=== PATIENT | male | born 1955 | race Caucasian/White ===

== ENCOUNTER → 2017-09-03 13:32 | Outpatient (CLI) | payer BC, SELFPAY ==
[2017-09-03 14:07] LABS: Basophils % 0.6 % (0.1-2.0); Eosinophils # 0.3 K/mm3 (0.0-0.4); Eosinophils % 4.5 % (0.1-12.0); Hematocrit 46.9 % (42.0-52.0); Hemoglobin 15.5 g/dL (14.1-18.0); Lymphocytes # 1.4 K/mm3 (0.7-4.5); Lymphocytes % 20.8 K/mm3 (10-50); Mean Corpuscular HGB Conc 33.1 g/dL (31.8-35.4); Mean Corpuscular Hemoglobin 29.3 pg (27.0-31.2); Mean Corpuscular Volume 88.4 fl (80-94); Mean Platelet Volume 9.1 fl (7.4-10.4); Monocytes # 0.4 K/mm3 (0.1-1.0); Monocytes % 5.2 % (1.7-9.3); Neutrophils # 4.7 K/mm3 (1.8-7.8); Neutrophils % 68.8 % (37.0-80.0); Platelet Count 177 K/mm3 (142-424); Red Cell Distribution Width 13.2 % (11.5-17.5); White Blood Count 6.8 K/mm3 (4.8-10.8)
[2017-09-03 14:56] LABS: Anion Gap 15.2 mEq/L (5-15); Blood Urea Nitrogen 14 mg/dL (7-18); Carbon Dioxide 26 mmol/L (21.0-32.0); Chloride 104 mmol/L (98-107); Creatinine,Serum 0.74 mg/dL (0.70-1.30); Estimated Glomerular Filt Rate 108 ml/min (>60); GFR (African American) 131 ML/MIN (>60); Glucose 94 mg/dL (74-106); Potassium 4.2 mmoL/L (3.5-5.1); Sodium 141 mmol/L (136-145)
== END ==
PROVIDERS: Visit Provider Otolaryngology
DX: Z01.818 Encounter for other preprocedural examination (principal); D18.01 Hemangioma of skin and subcutaneous tissue
CPT/HCPCS: 36415; 80048; 85025; 93005

== ENCOUNTER → 2017-12-14 09:45 | Outpatient (POV) | payer BC, SELFPAY | PROVIDERS: PCP Family Medicine; Visit Provider Internal Medicine | DX: Z00.00 Encounter for general adult medical examination without abnormal findings (principal) ==

== ENCOUNTER 2017-12-21 12:03 | Inpatient (IN) ==
[2017-12-21 12:35] LABS: Basophils % 0.4 % (0.1-2.0); Eosinophils # 0.7 K/mm3 (0.0-0.4); Eosinophils % 6.7 % (0.1-12.0); Hematocrit 46.7 % (42.0-52.0); Hemoglobin 15.5 g/dL (14.1-18.0); Lymphocytes # 1.5 K/mm3 (0.7-4.5); Lymphocytes % 15.6 K/mm3 (10-50); Mean Corpuscular HGB Conc 33.3 g/dL (31.8-35.4); Mean Corpuscular Hemoglobin 28.7 pg (27.0-31.2); Mean Corpuscular Volume 86.4 fl (80-94); Mean Platelet Volume 8.5 fl (7.4-10.4); Monocytes # 0.5 K/mm3 (0.1-1.0); Monocytes % 5.1 % (1.7-9.3); Neutrophils % 72.2 % (37.0-80.0); Platelet Count 181 K/mm3 (142-424); Red Blood Count 5.41 M/mm3 (4.60-6.20); Red Cell Distribution Width 13.6 % (11.5-17.5); White Blood Count 9.7 K/mm3 (4.8-10.8)
[2017-12-21 12:35] LABS: Bilirubin,Urine Negative (Negative); Color,Urine YELLOW (Yellow); Glucose,Urine (UA) Negative (Negative); Ketones,Urine Negative (Negative); Leukocyte Esterase,Urine Negative (Negative); Microscopic, Urine URINE MICROSCOPIC (MICROSCOPIC); Protein,Urine 2+ (Negative); Specific Gravity, Urine >= 1.030 (1.005-1.030)
--- NOTE | 2017-12-21 12:48 | Emergency Department Note ---
ED Disposition Clinical Impression: Small bowel obstruction, partial Disposition: Still a Patient Condition on Discharge: Fair Referrals: Messi Soto MD [Primary Care Provider] - - Critical Care Critical Care Time: No Attestation: On 12/21/17, the high probability of a clinically significant, sudden or life threatening deterioration of the following system(s) required my full and direct attention, intervention and personal management. The time I documented below is in addition to time spent performing reported procedures but includes the following listed in this critical care notation. Medical Decision Making - Enrique Inquiry Pt receiving controlled substance: Yes Enrique was queried for this patient: Yes Reference #:: [id number] Risks and benefits of using a controlled substance: were not discussed with pt by me Comment: 0 rxs. Vital Signs: 12/21/17 12:08 12/21/17 12:40 Temperature 98.7 F Temperature Source Oral Pulse Rate [Right Brachial] 71 78 Respiratory Rate 24 20 Blood Pressure [Right Arm] 138/89 146/89 Blood Pressure Mean [Right Arm] 105 108 Blood Pressure Source [Right Arm] Automatic Cuff Automatic Cuff Blood Pressure Position [Right Arm] Sitting Sitting 02 Sat by Pulse Oximetry 94 L 98 Oxygen Delivery Method Room Air Room Air - Lab Data Lab Results 12/21/17 12:20: WBC 9.7, RBC 5.41, Hgb 15.5, Hct 46.7, MCV 86.4, MCH 28.7, MCHC 33.3, RDW 13.6, Plt Count 181, MPV 8.5, Neut % (Auto) 72.2, Lymph % (Auto) 15.6 , [place] % (Auto) 5.1, Eos % (Auto) 6.7, Baso % (Auto) 0.4, Neut # (Auto) 7.0, Lymph # (Auto) 1.5, [place] # (Auto) 0.5, Eos # (Auto) 0.7 H, Baso # (Auto) 0.0 12/21/17 12:20: Sodium 138, Potassium 4.1, Chloride 106, Carbon Dioxide 29, Anion Gap 7.1, BUN 17, Creatinine 0.75, Estimated Creat Clear 161, Estimated GFR 106, Est GFR ( Amer) 129, Glucose 122 H, Calcium 8.8, Total Bilirubin 0.4, AST 17, ALT 28, Alkaline Phosphatase 84, Total Protein 7.3, Albumin 3.6, Globulin 3.7 H, Albumin/Globulin Ratio 1.0 L, Amylase 57, Lipase 113 12/21/17 12:30: Urine Color Yellow, Urine Appearance Clear, Urine pH 6.0, Ur Specific [place] >= 1.030, Urine Protein 2+, Urine Glucose (UA) Negative, Urine Ketones Negative, Urine Blood Trace-i, Urine Nitrate Negative, Urine Bilirubin Negative, Urine Urobilinogen 1.0, Ur Leukocyte Esterase Negative, Urine RBC None , Urine WBC Occasional, Ur Squamous Epith Cells Occasional, Urine Bacteria Trace , Urine Mucus 2+ Result diagrams: 12/21/17 12:20 12/21/17 12:20 Orders (Tests/Meds): ED MEDICATIONS Discontinued Medications Generic Name Dose Route Start Last Admin Trade Name Hector PRN Reason Stop Dose Admin Hydromorphone HCl 1 mg 12/21/17 12:55 12/21/17 13:05 Dilaudid 2mg/Ml Syringe IV 12/21/17 12:56 1 mg ONCE ONE Administration Ondansetron HCl 4 mg 12/21/17 12:55 12/21/17 13:05 Zofran 4mg/2ml Vial IV 12/21/17 12:56 4 mg ONCE ONE Administration Sodium Chloride 1,000 ml 12/21/17 12:55 12/21/17 13:05 Sod Chlor 0.9% 1000ml Bag IV 12/21/17 12:56 1,000 ml BOLUS ONE Administration - CT Data CT Scan: Abdomen, Pelvis Time Received: 14:[address] Reviewed: Yes: I have viewed the radiologist's interpretation Findings Narrative: The small bowel is distended. There is a prominent small bowel loop in the midabdomen measuring 7.5 cm in transverse dimension. There is a suture line at this region. No previous surgical history given. Air-fluid levels present in this distended bowel loop and in other bowel loops as well. The terminal ileum is nondistended. Mid ileal loops are dilated as well as jejunum and proximal ileum. Obstruction could be at the dilated small bowel segment at the region of the anastomosis. This is difficult to evaluate without IV and oral contrast. No free air. There is eventration of the lower abdominal wall. No acute bony anomalies. IMPRESSION: 1. The findings are consistent with partial small bowel obstruction at the proximal to mid ileal region. A dilated small bowel loop is present at an area of anastomosis in the midabdomen and could be the site of the obstruction. Follow-up with IV and adequate oral contrast may confirm. 2. Colonic diverticulosis. 3. Multiple hepatic cysts Dictated By: Bhanu Peguero MD Signed By: <Electronically signed by Bhanu Peguero MD in [place]> 12/21/17 1422 - Physician Consults Physician Consulted: Mario Time: 14:38 Reason -: Surgical Eval/Care Comment/Response: Requests admission to the patient's primary care physician, Dr. Soto, and he will consult. He will see the patient this afternoon. Additional Consult: Brittany Time: 14:41 Reason -: Admission Comment/Response: Agrees to admit the patient to the hospital. We discussed the patient's clinical information, including history, exam, laboratory and radiology results and ED course. Per hospital procedure, I will write temporary bridge inpatient orders on the patient. Specific orders requested by the admitting physician: Per surgery General Adult HPI - General Chief complaint: Abdominal Pain Stated complaint: abdominal pain Time Seen by Provider: 12/21/17 12:45 Mode of Arrival: Family Vehicle Limitations: No Limitations Description of Symptoms (Recalled from ER Triage Doc. by RN): C/O LOWER ABDOMINBAL PAIN SINCE THIS AM. STATES HE HAS HISTORY OF RUPTURED ABDOMINAL HERNIA AND THE PAIN FEELS THE SAME. NO RADIATION OF PAIN TO GENITALS.ALSO DX WITH SHINGLES ON BACK LAST WEEK - History of Present Illness HPI narrative: Complains of periumbilical abdominal pain that started about 3 AM. Waxes and wanes, but does not go away. Nausea, but no vomiting. Small bowel movement at about 11 AM. No diarrhea. No fever. The pain feels similar to prior problems with umbilical hernia. He had an incarcerated strangulated hernia in 2010 requiring a small bowel resection. He had hernia repair in 2012 or 2013 with mesh. - Related Data Home Medications Medication Instructions Recorded Confirmed aspirin 81 mg tablet,delayed 81 mg PO DAILY 08/13/17 12/21/17 release celecoxib 200 mg capsule 200 mg PO DAILY 90 Days #90 08/13/17 12/21/17 esomeprazole magnesium 40 mg 40 mg PO DAILY 90 Days #90 08/13/17 12/21/17 capsule,delayed release lisinopril 10 10 mg PO DAILY 90 Days #08/13/17 12/21/17 mg-hydrochlorothiazide 12.5 mg tablet ranitidine 300 mg tablet 300 mg PO DAILY 90 Days #90 08/13/17 12/21/17 Montelukast Sodium [Montelukast 10 mg PO HS 09/15/17 12/21/17 10mg Tab] Potassium 99 mg PO DAILY 09/15/17 12/21/17 Albuterol Sulfate [Proventil-HFA 2 inh PO QID PRN 12/21/17 12/21/17 90mcg/puff Inh] Azelastine/Fluticasone [Dymista 23 gm NS DAILY 12/21/17 12/21/17 Nasal [place]] Gluc/Fernie-MSM#1/C/Marc/Stanley/Bor 2 each PO DAILY 12/21/17 12/21/17 [Osteo Bi-Flex Caplet] Loratadine [Allerclear] 10 mg PO DAILY 12/21/17 12/21/17 Multivit-Min/FA/Lycopen/Lutein 1 each PO DAILY 12/21/17 12/21/17 [Centrum Silver Tablet] [place]-3 Fatty Acids [Fish Oil] 300 mg PO DAILY 12/21/17 12/21/17 Allergies Allergy/AdvReac Type Severity Reaction Status Date / Time No Known Allergies Allergy Verified 10/01/17 08:55 [facility] History I have reviewed the patient's past medical history: Yes Medical History: Reports:: Asthma, Gastroesophageal Reflux Disease(GERD), Hypertension Denies:: Cancer, Diabetes Mellitus Type 1, Diabetes Mellitus Type 2, Internal Pacemaker, MRSA, Seizures Other Medical History: Denies: Blood Transfusion Reaction Comment: right bbb Laterality Cases: Bilateral: Tonsillectomy, Other Other Surgeries: Yes: Cardiac Catheterization, Colonoscopy, Hernia Repair. No: Pacemaker Amputation: No - Social History Smoking Status: Never smoker Alcohol Intake: current Alcohol Intake Frequency:: a few times a week Substance Use Type: denies use Occupational Status: employed Housing: house Household Members: family - Psychiatric History Expresses thoughts of harming self/others: None Suicide Plan Description: No Plan Family Hx:: Hypertension ROS Obtained: Yes All systems reviewed & no additional complaints - Constitutional Constitutional: Denies fever(s) - Cardiovascular Cardiovascular: Denies chest pain - Respiratory Respiratory: No dyspnea - Gastrointestinal Gastrointestingal: Reports: abdominal pain, nausea. Denies: diarrhea, vomiting - Genitourinary Male Genitourinary: Denies difficulty urinating Physical Exam - General General appearance: alert Comment: Appears to be in moderate pain - Head Head exam: atraumatic, normocephalic, normal inspection - Eye Eye exam: Present: normal appearance, PERRL, EOMI - ENT ENT exam: Present: mucous membranes moist - Neck Neck exam: Present: normal inspection, full ROM, trachea midline. Absent: meningismus, lymphadenopathy - Chest Chest inspection: Present: normal inspection, symmetric chest wall rise. Absent : tenderness - Respiratory Respiratory exam: Present: normal lung sounds bilaterally. Absent: respiratory distress - Cardiovascular Cardiovascular exam: Present: regular rate, normal rhythm. Absent: JVD - Abdominal Exam Abdominal exam: Present: soft, tenderness (Periumbilical, no definite hernia or mass palpated), normal bowel sounds. Absent: distention, guarding - Extremities Exam Extremities exam: Present: normal inspection, full ROM, normal capillary refill. Absent: calf tenderness - Back Exam Comment: Grouping of small scabs left sacroiliac area. - Neurological Exam Neurological exam: Present: alert, oriented X3 - Psychiatric Psychiatric exam: Present: normal affect, normal mood - Skin Skin exam: Present: warm, dry, intact, normal color
[2017-12-21 12:49] LABS: Albumin Level 3.6 gm/dL (3.4-5.0); Anion Gap 7.1 mEq/L (5-15); Bilirubin,Total 0.4 mg/dL (0.2-1.0); Calcium 8.8 mg/dL (8.5-10.1); Globulin 3.7 gm/dl (1.3-3.2); Potassium 4.1 mmoL/L (3.5-5.1); Total Protein,Serum 7.3 gm/dL (6.4-8.2)
[2017-12-21 13:06] LABS: Bacteria,Urine Trace /lpf; Mucus,Urine 2+ /lpf; Squamous Epithelial Cell,Urine Occasional #/hpf (0-5); WBC,Urine Occasional #/hpf (0-3)
[2017-12-21 13:40] LABS: Appearance,Urine CLEAR (Clear); Blood, Urine TRACE-I (Negative)
--- NOTE | 2017-12-21 15:36 | Pharmacy Consult Notes ---
[facility] VTE Monitoring - Patient Demographics Admission date: 12/21/17 Report Date: 12/21/17 Time: 15:36 Allergies/Adverse Reactions: Patient Allergies No Known Allergies Allergy (Verified 10/01/17 08:55) Height: 1.83 m Weight: 108.862 kg Patient Problems: Current Active Problems Small bowel obstruction, partial (Acute) - VTE Risk Labs: VTE Related Lab Results Hgb 15.5 g/dL (14.1-18.0) 12/21/17 12:20 Hct 46.7 % (42.0-52.0) 12/21/17 12:20 Plt Count 181 K/mm3 (142-424) 12/21/17 12:20 BUN 17 mg/dL (7-18) 12/21/17 12:20 Creatinine 0.75 mg/dL (0.70-1.30) 12/21/17 12:20 Estimated Creat Clear 161 mL/min (0-300) 12/21/17 12:20 - Prophylaxis VTE Prophylaxis Ordered?: Yes Types of VTE Prophylaxis: TEDS Knee High Location of Applied Device: Bilateral Lower Extremeties - VTE Diagnosis Confirmed Treatment or plan recommended: Continue Current Treatment
--- NOTE | 2017-12-21 16:20 | History & Physical Report ---
*Admission Date: 12/21/17 *Chief complaint: Abdominal pain *History of present illness: 62 year old male with a history of an incarcerated umbilical hernia with small bowel obstruction in 2010, s/p emergent repair by Dr. Martin, presented to [facility] ER today complaining of middle lower abdominal pain. Patient reported the pain came on suddenly around 3 AM and was associated with nausea and some vomiting. He also noted a smaller volume bowel movement than normal. He had a CT scan in the ER which showed a partial SBO. Dr. Martin was contacted and requested admission for further observation and management. Patient states he has more pain and nausea since arriving at his room and Phenergan has been added to his treatment. Dr. Martin and I saw patient together. [facility] History Medical History: Reports:: Asthma, Gastroesophageal Reflux Disease(GERD), Hypertension Denies:: Cancer, Diabetes Mellitus Type 1, Diabetes Mellitus Type 2, Internal Pacemaker, MRSA, Seizures Other Medical History: Denies: Blood Transfusion Reaction Laterality Cases: Bilateral: Tonsillectomy, Other (Umbilical hernia w/ SBO repeair in 2010) Other Surgeries: Yes: Cardiac Catheterization, Colonoscopy, Hernia Repair. No: Pacemaker Amputation: No - *Social History Smoking Status: Never smoker Alcohol Intake: current Alcohol Intake Frequency:: a few times a week Substance Use Type: denies use Occupational Status: employed Housing: house Household Members: family - Psychiatric History Expresses thoughts of harming self/others: None Suicide Plan Description: No Plan *Family Hx:: Hypertension Review of Systems - Constitutional Denies fatigue - Eyes Denies blurry vision - ENT Denies bleeding gums - *Cardiovascular Denies chest pain - *Respiratory Denies cough - *Genitourinary Denies difficulty urinating - *Musculoskeletal Denies joint pain - Integumentary/Breasts Denies rash - *Neurologic Denies dizziness - Hematologic/Lymphatic Denies easy bleeding Meds Home Medications Medication Instructions Recorded Confirmed Type aspirin 81 mg tablet,delayed 81 mg PO DAILY 08/13/17 12/21/17 History release celecoxib 200 mg capsule 200 mg PO DAILY 90 Days #08/13/17 12/21/17 History esomeprazole magnesium 40 mg 40 mg PO DAILY 90 Days #90 08/13/17 12/21/17 History capsule,delayed release lisinopril 10 10 mg PO DAILY 90 Days #08/13/17 12/21/17 History mg-hydrochlorothiazide 12.5 mg tablet ranitidine 300 mg tablet 300 mg PO DAILY 90 Days #90 08/13/17 12/21/17 History Montelukast Sodium [Montelukast 10 mg PO HS 09/15/17 12/21/17 History 10mg Tab] Potassium 99 mg PO DAILY 09/15/17 12/21/17 History Albuterol Sulfate [Proventil-HFA 2 inh PO QID PRN 12/21/17 12/21/17 History 90mcg/puff Inh] Azelastine/Fluticasone [Dymista 23 gm NS DAILY 12/21/17 12/21/17 History Nasal [place]] Gluc/[place]ernie-MSM#1/C/Marc/Stanley/Bor 2 each PO DAILY 12/21/17 12/21/17 History [Osteo Bi-Flex Caplet] Loratadine [Allerclear] 10 mg PO DAILY 12/21/17 12/21/17 History Multivit-Min/FA/Lycopen/Lutein 1 each PO DAILY 12/21/17 12/21/17 History [Centrum Silver Tablet] [place]-3 Fatty Acids [Fish Oil] 300 mg PO DAILY 12/21/17 12/21/17 History Allergies Allergy/AdvReac Type Severity Reaction Status Date / Time No Known Allergies Allergy Verified 10/01/17 08:55 Exam Vital signs and Labs for Last 24 Hours: Temp Pulse Resp BP Pulse Ox 98.7 F 66 16 135/78 94 L 12/21/17 15:24 12/21/17 15:24 12/21/17 15:24 12/21/17 15:24 12/21/17 15:15 Laboratory Results - last 24 hr 12/21/17 12:20: WBC 9.7, RBC 5.41, Hgb 15.5, Hct 46.7, MCV 86.4, MCH 28.7, MCHC 33.3, RDW 13.6, Plt Count 181, MPV 8.5, Neut % (Auto) 72.2, Lymph % (Auto) 15.6 , [place] % (Auto) 5.1, Eos % (Auto) 6.7, Baso % (Auto) 0.4, Neut # (Auto) 7.0, Lymph # (Auto) 1.5, [place] # (Auto) 0.5, Eos # (Auto) 0.7 H, Baso # (Auto) 0.0 12/21/17 12:20: Sodium 138, Potassium 4.1, Chloride 106, Carbon Dioxide 29, Anion Gap 7.1, BUN 17, Creatinine 0.75, Estimated Creat Clear 161, Estimated GFR 106, Est GFR ( Amer) 129, Glucose 122 H, Calcium 8.8, Total Bilirubin 0.4, AST 17, ALT 28, Alkaline Phosphatase 84, Total Protein 7.3, Albumin 3.6, Globulin 3.7 H, Albumin/Globulin Ratio 1.0 L, Amylase 57, Lipase 113 12/21/17 12:30: Urine Color Yellow, Urine Appearance Clear, Urine pH 6.0, Ur Specific [place] >= 1.030, Urine Protein 2+, Urine Glucose (UA) Negative, Urine Ketones Negative, Urine Blood Trace-i, Urine Nitrate Negative, Urine Bilirubin Negative, Urine Urobilinogen 1.0, Ur Leukocyte Esterase Negative, Urine RBC None , Urine WBC Occasional, Ur Squamous Epith Cells Occasional, Urine Bacteria Trace , Urine Mucus 2+ I & O for Last 24 hours: Intake & Output 12/19/17 12/20/17 12/21/17 12/22/17 11:59 11:59 11:59 11:59 Weight 240 lb - Constitutional mild distress - *Routine HEENT Exam ENT: Present: mucous membranes moist - *Routine Respiratory Exam Present: CTA bilaterally - *Routine Cardiovascular Exam Present: RRR - *Routine Abdominal Exam Present: tenderness (periumbilical), distended - *Routine Extremities Exam Absent: cyanosis, clubbing, edema - *Routine Skin Exam Present: warm H&P: Result - Labs Labs: Short CBC 12/21/17 Range/Units 12:20 WBC 9.7 (4.8-10.8) K/mm3 Hgb 15.5 (14.1-18.0) g/dL Hct 46.7 (42.0-52.0) % Plt Count 181 (142-424) K/mm3 BMP 12/21/17 12:20 Sodium 138 Potassium 4.1 Chloride 106 Carbon Dioxide 29 BUN 17 Creatinine 0.75 Glucose 122 H Calcium 8.8 Liver Function 12/21/17 Range/Units 12:20 Total Bilirubin 0.4 (0.2-1.0) mg/dL AST 17 (15-37) U/L ALT 28 (12-78) U/L Alkaline Phosphatase 84 (46-116) U/L Albumin 3.6 (3.4-5.0) gm/dL Urine 12/21/17 Range/Units 12:30 Urine Color Yellow (Yellow) Urine Appearance Clear (Clear) Urine pH 6.0 (5.0-8.5) Ur Specific [place] >= 1.030 (1.005-1.030) Urine Protein 2+ (Negative) Urine Glucose (UA) Negative (Negative) Assessment and Plan (1) Small bowel obstruction, partial Current visit: Yes Status: Acute Category: Medical Code(s): K56.600 - Partial intestinal obstruction, unspecified as to cause (2) Abdominal pain Current visit: Yes Status: Acute Category: Medical Code(s): R10.9 - Unspecified abdominal pain (3) HTN (hypertension) Current visit: Yes Status: Acute Category: Medical Code(s): I10 - Essential (primary) hypertension (4) GERD (gastroesophageal reflux disease) Current visit: Yes Status: Acute Category: Medical Code(s): K21.9 - Gastro -esophageal reflux disease without esophagitis (5) History of umbilical hernia Current visit: Yes Status: Acute Category: Medical Code(s): Z87.19 - Personal history of other diseases of the digestive system (6) Hx of umbilical hernia repair Current visit: Yes Status: Acute Category: Surgical Code(s): Z98.890 - Other specified postprocedural states; Z87.19 - Personal history of other diseases of the digestive system - Assessment and plan all Dx Assessment and Plan for all problems:: NG tube has been placed and patient feels some better. Plan to continue current treatment.
--- NOTE | 2017-12-21 16:58 | Consult Report ---
*Admission Date: 12/21/17 *Chief complaint: Abdominal pain and nausea *History of present illness: Patient is a 62-year-old white male. In 2010 he had developed acute small bowel obstruction secondary to strangulated umbilical hernia. He was taken emergently to the operating room at which time he underwent small segmental resection of small bowel due to strangulation with [id number] anastomosis. He did ultimately develop a recurrent hernia and underwent laparoscopic ventral hernia repair in 2013 with placement of Bard ventralex mesh measuring 15 x 21 cm. he states that approximately 3 or 4 AM this morning he had developed mid abdominal pain. This persisted and progressed. He had a normal bowel movement yesterday and has been moving his bowels normally. He had a small with a normal bowel movement earlier today. He states that this morning he had drank some hot chocolate and eaten some cashews but his symptoms of pain persisted and progressed. He developed nausea and presented to the emergency department this afternoon. He underwent noncontrast CT scan which revealed findings of dilated small bowel consistent with possible partial obstruction but no clear transition point was noted. He was admitted for inpatient management and surgical consultation. Review of Systems - Constitutional Reports anorexia, Reports excessive sweating, Denies fever(s) - Eyes Denies change in vision - ENT Denies abnormal hearing - *Cardiovascular Denies chest pain - *Respiratory Reports cough, Denies shortness of breath - *Gastrointestinal Reports abdominal pain, Reports bloating, Reports change in bowel habits, Reports vomiting - *Genitourinary Denies difficulty urinating - *Neurologic Denies dizziness [facility] History Medical History: Reports:: Asthma, Gastroesophageal Reflux Disease(GERD), Hypertension Denies:: Cancer, Diabetes Mellitus Type 1, Diabetes Mellitus Type 2, Internal Pacemaker, MRSA, Seizures Other Medical History: Denies: Blood Transfusion Reaction Laterality Cases: Bilateral: Tonsillectomy, Other (Umbilical hernia w/ SBO repeair in 2010) Other Surgeries: Yes: Cardiac Catheterization, Colonoscopy, Hernia Repair. No: Pacemaker Amputation: No - *Social History Educational Level: Completed High School Smoking Status: Never smoker Alcohol Intake: current Alcohol Intake Frequency:: a few times a week Substance Use Type: denies use Occupational Status: employed Housing: house Household Members: family - Psychiatric History Expresses thoughts of harming self/others: None Suicide Plan Description: No Plan *Family Hx:: Hypertension Meds Home Medications Medication Instructions Recorded Confirmed Type aspirin 81 mg tablet,delayed 81 mg PO DAILY 08/13/17 12/21/17 History release celecoxib 200 mg capsule 200 mg PO DAILY 90 Days #90 08/13/17 12/21/17 History esomeprazole magnesium 40 mg 40 mg PO DAILY 90 Days #90 08/13/17 12/21/17 History capsule,delayed release lisinopril 10 10 mg PO DAILY 90 Days #90 08/13/17 12/21/17 History mg-hydrochlorothiazide 12.5 mg tablet ranitidine 300 mg tablet 300 mg PO DAILY 90 Days #90 08/13/17 12/21/17 History Montelukast Sodium [Montelukast 10 mg PO HS 09/15/17 12/21/17 History 10mg Tab] Potassium 99 mg PO DAILY 09/15/17 12/21/17 History Albuterol Sulfate [Proventil-HFA 2 inh PO QID PRN 12/21/17 12/21/17 History 90mcg/puff Inh] Azelastine/Fluticasone [Dymista 23 gm NS DAILY 12/21/17 12/21/17 History Nasal [place]] Gluc/Fernie-MSM#1/C/Marc/Stanley/Bor 2 each PO DAILY 12/21/17 12/21/17 History [Osteo Bi-Flex Caplet] Loratadine [Allerclear] 10 mg PO DAILY 12/21/17 12/21/17 History Multivit-Min/FA/Lycopen/Lutein 1 each PO DAILY 12/21/17 12/21/17 History [Centrum Silver Tablet] [place]-3 Fatty Acids [Fish Oil] 300 mg PO DAILY 12/21/17 12/21/17 History Allergies Allergy/AdvReac Type Severity Reaction Status Date / Time No Known Allergies Allergy Verified 10/01/17 08:55 Exam Vital signs and Labs for Last 24 Hours: Temp Pulse Resp BP Pulse Ox 98.7 F 66 16 135/78 94 L 12/21/17 15:24 12/21/17 15:24 12/21/17 15:24 12/21/17 15:24 12/21/17 15:15 Laboratory Results - last 24 hr 12/21/17 12:20: WBC 9.7, RBC 5.41, Hgb 15.5, Hct 46.7, MCV 86.4, MCH 28.7, MCHC 33.3, RDW 13.6, Plt Count 181, MPV 8.5, Neut % (Auto) 72.2, Lymph % (Auto) 15.6 , [place] % (Auto) 5.1, Eos % (Auto) 6.7, Baso % (Auto) 0.4, Neut # (Auto) 7.0, Lymph # (Auto) 1.5, [place] # (Auto) 0.5, Eos # (Auto) 0.7 H, Baso # (Auto) 0.0 12/21/17 12:20: Sodium 138, Potassium 4.1, Chloride 106, Carbon Dioxide 29, Anion Gap 7.1, BUN 17, Creatinine 0.75, Estimated Creat Clear 161, Estimated GFR 106, Est GFR ( Amer) 129, Glucose 122 H, Calcium 8.8, Total Bilirubin 0.4, AST 17, ALT 28, Alkaline Phosphatase 84, Total Protein 7.3, Albumin 3.6, Globulin 3.7 H, Albumin/Globulin Ratio 1.0 L, Amylase 57, Lipase 113 12/21/17 12:30: Urine Color Yellow, Urine Appearance Clear, Urine pH 6.0, Ur Specific [place] >= 1.030, Urine Protein 2+, Urine Glucose (UA) Negative, Urine Ketones Negative, Urine Blood Trace-i, Urine Nitrate Negative, Urine Bilirubin Negative, Urine Urobilinogen 1.0, Ur Leukocyte Esterase Negative, Urine RBC None , Urine WBC Occasional, Ur Squamous Epith Cells Occasional, Urine Bacteria Trace , Urine Mucus 2+ I & O for Last 24 hours: Intake & Output 12/19/17 12/20/17 12/21/17 12/22/17 11:59 11:59 11:59 11:59 Weight 240 lb - Constitutional mild distress Comments: Patient is uncomfortable secondary to the pain and nausea. - *Routine HEENT Exam Head: Present: normocephalic - *Routine Respiratory Exam Present: CTA bilaterally - *Routine Cardiovascular Exam Present: RRR - *Routine Abdominal Exam Present: tenderness, distended. Absent: rebound, guarding Comments: Abdomen is somewhat distended. He has some mild diffuse tenderness without guarding or rebound. He has hypoactive bowel sounds. Results - Labs 12/21/17 12:20 12/21/17 12:20 Laboratory Results - last 24 hr 12/21/17 12:20: WBC 9.7, RBC 5.41, Hgb 15.5, Hct 46.7, MCV 86.4, MCH 28.7, MCHC 33.3, RDW 13.6, Plt Count 181, MPV 8.5, Neut % (Auto) 72.2, Lymph % (Auto) 15.6 , [place] % (Auto) 5.1, Eos % (Auto) 6.7, Baso % (Auto) 0.4, Neut # (Auto) 7.0, Lymph # (Auto) 1.5, [place] # (Auto) 0.5, Eos # (Auto) 0.7 H, Baso # (Auto) 0.0 12/21/17 12:20: Sodium 138, Potassium 4.1, Chloride 106, Carbon Dioxide 29, Anion Gap 7.1, BUN 17, Creatinine 0.75, Estimated Creat Clear 161, Estimated GFR 106, Est GFR ( Amer) 129, Glucose 122 H, Calcium 8.8, Total Bilirubin 0.4, AST 17, ALT 28, Alkaline Phosphatase 84, Total Protein 7.3, Albumin 3.6, Globulin 3.7 H, Albumin/Globulin Ratio 1.0 L, Amylase 57, Lipase 113 12/21/17 12:30: Urine Color Yellow, Urine Appearance Clear, Urine pH 6.0, Ur Specific [place] >= 1.030, Urine Protein 2+, Urine Glucose (UA) Negative, Urine Ketones Negative, Urine Blood Trace-i, Urine Nitrate Negative, Urine Bilirubin Negative, Urine Urobilinogen 1.0, Ur Leukocyte Esterase Negative, Urine RBC None , Urine WBC Occasional, Ur Squamous Epith Cells Occasional, Urine Bacteria Trace , Urine Mucus 2+ Assessment and Plan (1) Small bowel obstruction, partial Current visit: Yes Status: Acute Category: Medical Code(s): K56.600 - Partial intestinal obstruction, unspecified as to cause (2) Abdominal pain Current visit: Yes Status: Acute Category: Medical Code(s): R10.9 - Unspecified abdominal pain (3) HTN (hypertension) Current visit: Yes Status: Acute Category: Medical Code(s): I10 - Essential (primary) hypertension (4) GERD (gastroesophageal reflux disease) Current visit: Yes Status: Acute Category: Medical Code(s): K21.9 - Gastro -esophageal reflux disease without esophagitis (5) History of umbilical hernia Current visit: Yes Status: Acute Category: Medical Code(s): Z87.19 - Personal history of other diseases of the digestive system (6) Hx of umbilical hernia repair Current visit: Yes Status: Acute Category: Surgical Code(s): Z98.890 - Other specified postprocedural states; Z87.19 - Personal history of other diseases of the digestive system - Assessment and plan all Dx Assessment and Plan for all problems:: Plan for nasogastric tube placement. Attempt nonoperative management. Administer antiemetics and limited pain control. Possibility does exist for need for operative intervention.
--- NOTE | 2017-12-22 07:04 | Progress Note ---
Subjective Patient reports: feels better Exam Vital signs and Labs for Last 24 Hours: Temp Pulse Resp BP Pulse Ox 98.7 F 91 H 16 122/73 94 L 12/21/17 20:00 12/21/17 20:00 12/21/17 20:00 12/21/17 20:00 12/21/17 20:00 Laboratory Results - last 24 hr 12/21/17 12:20: WBC 9.7, RBC 5.41, Hgb 15.5, Hct 46.7, MCV 86.4, MCH 28.7, MCHC 33.3, RDW 13.6, Plt Count 181, MPV 8.5, Neut % (Auto) 72.2, Lymph % (Auto) 15.6 , [place] % (Auto) 5.1, Eos % (Auto) 6.7, Baso % (Auto) 0.4, Neut # (Auto) 7.0, Lymph # (Auto) 1.5, [place] # (Auto) 0.5, Eos # (Auto) 0.7 H, Baso # (Auto) 0.0 12/21/17 12:20: Sodium 138, Potassium 4.1, Chloride 106, Carbon Dioxide 29, Anion Gap 7.1, BUN 17, Creatinine 0.75, Estimated Creat Clear 161, Estimated GFR 106, Est GFR ( Amer) 129, Glucose 122 H, Calcium 8.8, Total Bilirubin 0.4, AST 17, ALT 28, Alkaline Phosphatase 84, Total Protein 7.3, Albumin 3.6, Globulin 3.7 H, Albumin/Globulin Ratio 1.0 L, Amylase 57, Lipase 113 12/21/17 12:30: Urine Color Yellow, Urine Appearance Clear, Urine pH 6.0, Ur Specific [place] >= 1.030, Urine Protein 2+, Urine Glucose (UA) Negative, Urine Ketones Negative, Urine Blood Trace-i, Urine Nitrate Negative, Urine Bilirubin Negative, Urine Urobilinogen 1.0, Ur Leukocyte Esterase Negative, Urine RBC None , Urine WBC Occasional, Ur Squamous Epith Cells Occasional, Urine Bacteria Trace , Urine Mucus 2+ 12/21/17 20:48: Stl Aeromonas (PCR) Not detected, Stl C. cayetanensis PCR Not detected, Stool Rotavirus (PCR) Not detected, Stl Adenov F 40/41 PCR Not detected, Stool Astrovirus (PCR) Not detected, Stool Campylobacter PCR Not detected, Stl C.difficile Tox PCR Not detected, Stool Cryptosporidium PCR Not detected, Stl E.coli Shiga Tox PCR Not detected, Stool E coli O157 PCR Not detected, Stl Enterotoxigenic E PCR Not detected, Stool EPEC (PCR) Not detected , Stool EAEC (PCR) Not detected, Stl E. histolytica PCR Not detected, Stool Giardia Lamblia PCR Not detected, Stool Salmonella PCR Not detected, Stool Sapovirus (PCR) Not detected, Stl P. shigelloides PCR Not detected, Stl Shigella /EIEC PCR Not detected, St Y.enterocolitica PCR Not detected, Stool Vibrio (PCR ) Not detected, Stl Vibrio cholerae PCR Not detected, Stl Norovirus GI/GII PCR Not detected I & O for Last 24 hours: Intake & Output 12/19/17 12/20/17 12/21/17 12/22/17 11:59 11:59 11:59 11:59 Intake Total 2390 / 2390 Output Total 852 / 852 Balance 1538 / 1538 Weight 240 lb - *Routine Abdominal Exam Present: distended Progress Note: A&P (1) Small bowel obstruction, partial Status: Acute Current Visit: Yes (2) Abdominal pain Status: Acute Current Visit: Yes (3) HTN (hypertension) Status: Acute Current Visit: Yes (4) GERD (gastroesophageal reflux disease) Status: Acute Current Visit: Yes (5) History of umbilical hernia Status: Acute Current Visit: Yes (6) Hx of umbilical hernia repair Status: Acute Current Visit: Yes Assessment and Plan for All Diagnoses:: Abdominal x-ray shows improvement in bowel gas pattern. However, NG tube is coiled in the mid esophagus. Will have nursing repositioned NG tube. May need new NG tube placed. Continue attempt at nonoperative management at this time.
--- NOTE | 2017-12-22 08:13 | Progress Note ---
Internal Medicine - PN: Subj *Date: 12/22/17 *Time: 08:10 Interval history: Patient feels some better this morning. He had a bowel movement overnight, NG tube was just replaced. Exam Vital signs and Labs for Last 24 Hours: Temp Pulse Resp BP Pulse Ox 98.3 F 83 20 133/84 94 L 12/22/17 07:56 12/22/17 07:56 12/22/17 07:56 12/22/17 07:56 12/22/17 07:56 Laboratory Results - last 24 hr 12/21/17 12:20: WBC 9.7, RBC 5.41, Hgb 15.5, Hct 46.7, MCV 86.4, MCH 28.7, MCHC 33.3, RDW 13.6, Plt Count 181, MPV 8.5, Neut % (Auto) 72.2, Lymph % (Auto) 15.6 , [place] % (Auto) 5.1, Eos % (Auto) 6.7, Baso % (Auto) 0.4, Neut # (Auto) 7.0, Lymph # (Auto) 1.5, [place] # (Auto) 0.5, Eos # (Auto) 0.7 H, Baso # (Auto) 0.0 12/21/17 12:20: Sodium 138, Potassium 4.1, Chloride 106, Carbon Dioxide 29, Anion Gap 7.1, BUN 17, Creatinine 0.75, Estimated Creat Clear 161, Estimated GFR 106, Est GFR ( Amer) 129, Glucose 122 H, Calcium 8.8, Total Bilirubin 0.4, AST 17, ALT 28, Alkaline Phosphatase 84, Total Protein 7.3, Albumin 3.6, Globulin 3.7 H, Albumin/Globulin Ratio 1.0 L, Amylase 57, Lipase 113 12/21/17 12:30: Urine Color Yellow, Urine Appearance Clear, Urine pH 6.0, Ur Specific [place] >= 1.030, Urine Protein 2+, Urine Glucose (UA) Negative, Urine Ketones Negative, Urine Blood Trace-i, Urine Nitrate Negative, Urine Bilirubin Negative, Urine Urobilinogen 1.0, Ur Leukocyte Esterase Negative, Urine RBC None , Urine WBC Occasional, Ur Squamous Epith Cells Occasional, Urine Bacteria Trace , Urine Mucus 2+ 12/21/17 20:48: Stl Aeromonas (PCR) Not detected, Stl C. cayetanensis PCR Not detected, Stool Rotavirus (PCR) Not detected, Stl Adenov F 40/41 PCR Not detected, Stool Astrovirus (PCR) Not detected, Stool Campylobacter PCR Not detected, Stl C.difficile Tox PCR Not detected, Stool Cryptosporidium PCR Not detected, Stl E.coli Shiga Tox PCR Not detected, Stool E coli O157 PCR Not detected, Stl Enterotoxigenic E PCR Not detected, Stool EPEC (PCR) Not detected , Stool EAEC (PCR) Not detected, Stl E. histolytica PCR Not detected, Stool Giardia Lamblia PCR Not detected, Stool Salmonella PCR Not detected, Stool Sapovirus (PCR) Not detected, Stl P. shigelloides PCR Not detected, Stl Shigella /EIEC PCR Not detected, St Y.enterocolitica PCR Not detected, Stool Vibrio (PCR ) Not detected, Stl Vibrio cholerae PCR Not detected, Stl Norovirus GI/GII PCR Not detected I & O for Last 24 hours: Intake & Output 12/19/17 12/20/17 12/21/17 12/22/17 11:59 11:59 11:59 11:59 Intake Total 2390 / 2390 Output Total 852 / 852 Balance 1538 / 1538 Weight 240 lb - Constitutional no acute distress - *Routine HEENT Exam ENT: Present: mucous membranes moist - *Routine Respiratory Exam Present: CTA bilaterally - *Routine Cardiovascular Exam Present: RRR - *Routine Abdominal Exam Present: soft, normoactive bowel sounds, tenderness (but much less today) Assessment and Plan (1) Small bowel obstruction, partial Current visit: Yes Status: Acute Category: Medical Code(s): K56.600 - Partial intestinal obstruction, unspecified as to cause (2) Abdominal pain Current visit: Yes Status: Acute Category: Medical Code(s): R10.9 - Unspecified abdominal pain (3) HTN (hypertension) Current visit: Yes Status: Acute Category: Medical Code(s): I10 - Essential (primary) hypertension (4) GERD (gastroesophageal reflux disease) Current visit: Yes Status: Acute Category: Medical Code(s): K21.9 - Gastro -esophageal reflux disease without esophagitis (5) History of umbilical hernia Current visit: Yes Status: Acute Category: Medical Code(s): Z87.19 - Personal history of other diseases of the digestive system (6) Hx of umbilical hernia repair Current visit: Yes Status: Acute Category: Surgical Code(s): Z98.890 - Other specified postprocedural states; Z87.19 - Personal history of other diseases of the digestive system - Assessment and plan all Dx Assessment and Plan for all problems:: Plan to continue current treatment as patient has improved.
[2017-12-23 06:42] LABS: Basophils % 0.3 % (0.1-2.0); Eosinophils # 0.2 K/mm3 (0.0-0.4); Eosinophils % 3.3 % (0.1-12.0); Hematocrit 39.9 % (42.0-52.0); Hemoglobin 13.3 g/dL (14.1-18.0); Lymphocytes # 1.6 K/mm3 (0.7-4.5); Lymphocytes % 24.3 K/mm3 (10-50); Mean Corpuscular HGB Conc 33.4 g/dL (31.8-35.4); Mean Corpuscular Hemoglobin 29.1 pg (27.0-31.2); Mean Corpuscular Volume 87.1 fl (80-94); Mean Platelet Volume 8.5 fl (7.4-10.4); Monocytes # 0.5 K/mm3 (0.1-1.0); Monocytes % 7.4 % (1.7-9.3); Neutrophils # 4.2 K/mm3 (1.8-7.8); Neutrophils % 64.7 % (37.0-80.0); Platelet Count 161 K/mm3 (142-424); Red Blood Count 4.58 M/mm3 (4.60-6.20); Red Cell Distribution Width 13.8 % (11.5-17.5); White Blood Count 6.4 K/mm3 (4.8-10.8)
[2017-12-23 06:49] LABS: Anion Gap 6.7 mEq/L (5-15); Potassium 3.7 mmoL/L (3.5-5.1)
[2017-12-23 07:04] LABS: Calcium 7.8 mg/dL (8.5-10.1)
--- NOTE | 2017-12-23 08:08 | Progress Note ---
<Adelaide Figueroa - Last Filed: 12/23/17 08:06> Internal Medicine - PN: Subj *Date: 12/23/17 *Time: 08:06 Interval history: Patient states he is feeling well this morning. He has not had a bowel movement , but his stomach has been growling. He is hungry and wants to try some clear liquids today. He did sleep well last night Exam Vital signs and Labs for Last 24 Hours: Temp Pulse Resp BP Pulse Ox 98.7 F 71 20 138/75 94 L 12/23/17 07:49 12/23/17 07:49 12/23/17 07:49 12/23/17 07:49 12/23/17 07:49 Laboratory Results - last 24 hr 12/23/17 06:15: WBC 6.4 D, RBC 4.58 L, Hgb 13.3 L, Hct 39.9 L, MCV 87.1, MCH 29.1, MCHC 33.4, RDW 13.8, Plt Count 161, MPV 8.5, Neut % (Auto) 64.7, Lymph % ( Auto) 24.3, [place] % (Auto) 7.4, Eos % (Auto) 3.3, Baso % (Auto) 0.3, Neut # (Auto ) 4.2, Lymph # (Auto) 1.6, [place] # (Auto) 0.5, Eos # (Auto) 0.2, Baso # (Auto) 0.0 12/23/17 06:15: Sodium 139, Potassium 3.7, Chloride 106, Carbon Dioxide 30, Anion Gap 6.7, BUN 7 D, Creatinine 0.62 L, Estimated Creat Clear 195, Estimated GFR 132, Est GFR ( Amer) 160 D, Glucose 115 H, Calcium 7.8 L D I & O for Last 24 hours: Intake & Output 12/20/17 12/21/17 12/22/17 12/23/17 11:59 11:59 11:59 11:59 Intake Total 2390 / 2390 3390 / 3390 Output Total 852 / 852 450 / 450 Balance 1538 / 1538 2940 / 2940 Weight 240 lb - Constitutional no acute distress - *Routine Respiratory Exam Present: CTA bilaterally - *Routine Cardiovascular Exam Present: RRR - *Routine Abdominal Exam Present: soft, normoactive bowel sounds. Absent: tenderness - *Routine Extremities Exam Absent: edema Assessment and Plan (1) Small bowel obstruction, partial Current visit: Yes Status: Acute Category: Medical Code(s): K56.600 - Partial intestinal obstruction, unspecified as to cause (2) Abdominal pain Current visit: Yes Status: Acute Category: Medical Code(s): R10.9 - Unspecified abdominal pain (3) HTN (hypertension) Current visit: Yes Status: Acute Category: Medical Code(s): I10 - Essential (primary) hypertension (4) GERD (gastroesophageal reflux disease) Current visit: Yes Status: Acute Category: Medical Code(s): K21.9 - Gastro -esophageal reflux disease without esophagitis (5) History of umbilical hernia Current visit: Yes Status: Acute Category: Medical Code(s): Z87.19 - Personal history of other diseases of the digestive system (6) Hx of umbilical hernia repair Current visit: Yes Status: Acute Category: Surgical Code(s): Z98.890 - Other specified postprocedural states; Z87.19 - Personal history of other diseases of the digestive system - Assessment and plan all Dx Assessment and Plan for all problems:: Surgery to see today. May be able to start a clear liquid diet. <Messi Soto - Last Filed: 12/23/17 08:41> Internal Medicine - PN: Subj *Date: 12/23/17 *Time: 08:41 Exam Vital signs and Labs for Last 24 Hours: Temp Pulse Resp BP Pulse Ox 98.7 F 71 20 138/75 94 L 12/23/17 07:49 12/23/17 07:49 12/23/17 07:49 12/23/17 07:49 12/23/17 07:49 Laboratory Results - last 24 hr 12/23/17 06:15: WBC 6.4 D, RBC 4.58 L, Hgb 13.3 L, Hct 39.9 L, MCV 87.1, MCH 29.1, MCHC 33.4, RDW 13.8, Plt Count 161, MPV 8.5, Neut % (Auto) 64.7, Lymph % ( Auto) 24.3, [place] % (Auto) 7.4, Eos % (Auto) 3.3, Baso % (Auto) 0.3, Neut # (Auto ) 4.2, Lymph # (Auto) 1.6, [place] # (Auto) 0.5, Eos # (Auto) 0.2, Baso # (Auto) 0.0 12/23/17 06:15: Sodium 139, Potassium 3.7, Chloride 106, Carbon Dioxide 30, Anion Gap 6.7, BUN 7 D, Creatinine 0.62 L, Estimated Creat Clear 195, Estimated GFR 132, Est GFR ( Amer) 160 D, Glucose 115 H, Calcium 7.8 L D I & O for Last 24 hours: Intake & Output 12/20/17 12/21/17 12/22/17 12/23/17 11:59 11:59 11:59 11:59 Intake Total 2390 / 2390 3390 / 3390 Output Total 852 / 852 450 / 450 Balance 1538 / 1538 2940 / 2940 Weight 240 lb Assessment and Plan (1) Small bowel obstruction, partial Current visit: Yes Status: Acute Category: Medical Code(s): K56.600 - Partial intestinal obstruction, unspecified as to cause (2) Abdominal pain Current visit: Yes Status: Acute Category: Medical Code(s): R10.9 - Unspecified abdominal pain (3) HTN (hypertension) Current visit: Yes Status: Acute Category: Medical Code(s): I10 - Essential (primary) hypertension (4) GERD (gastroesophageal reflux disease) Current visit: Yes Status: Acute Category: Medical Code(s): K21.9 - Gastro -esophageal reflux disease without esophagitis (5) History of umbilical hernia Current visit: Yes Status: Acute Category: Medical Code(s): Z87.19 - Personal history of other diseases of the digestive system (6) Hx of umbilical hernia repair Current visit: Yes Status: Acute Category: Surgical Code(s): Z98.890 - Other specified postprocedural states; Z87.19 - Personal history of other diseases of the digestive system - Assessment and plan all Dx Assessment and Plan for all problems:: Saw patient, agree with above note.
--- NOTE | 2017-12-23 08:21 | Progress Note ---
Subjective Patient reports: feels better Narrative: Patient states he has passed some gas. No bowel movement. Exam Vital signs and Labs for Last 24 Hours: Temp Pulse Resp BP Pulse Ox 98.7 F 71 20 138/75 94 L 12/23/17 07:49 12/23/17 07:49 12/23/17 07:49 12/23/17 07:49 12/23/17 07:49 Laboratory Results - last 24 hr 12/23/17 06:15: WBC 6.4 D, RBC 4.58 L, Hgb 13.3 L, Hct 39.9 L, MCV 87.1, MCH 29.1, MCHC 33.4, RDW 13.8, Plt Count 161, MPV 8.5, Neut % (Auto) 64.7, Lymph % ( Auto) 24.3, [place] % (Auto) 7.4, Eos % (Auto) 3.3, Baso % (Auto) 0.3, Neut # (Auto ) 4.2, Lymph # (Auto) 1.6, [place] # (Auto) 0.5, Eos # (Auto) 0.2, Baso # (Auto) 0.0 12/23/17 06:15: Sodium 139, Potassium 3.7, Chloride 106, Carbon Dioxide 30, Anion Gap 6.7, BUN 7 D, Creatinine 0.62 L, Estimated Creat Clear 195, Estimated GFR 132, Est GFR ( Amer) 160 D, Glucose 115 H, Calcium 7.8 L D I & O for Last 24 hours: Intake & Output 12/20/17 12/21/17 12/22/17 12/23/17 11:59 11:59 11:59 11:59 Intake Total 2390 / 2390 3390 / 3390 Output Total 852 / 852 450 / 450 Balance 1538 / 1538 2940 / 2940 Weight 240 lb - *Routine Abdominal Exam Present: soft. Absent: tenderness Progress Note: A&P (1) Small bowel obstruction, partial Status: Acute Current Visit: Yes (2) Abdominal pain Status: Acute Current Visit: Yes (3) HTN (hypertension) Status: Acute Current Visit: Yes (4) GERD (gastroesophageal reflux disease) Status: Acute Current Visit: Yes (5) History of umbilical hernia Status: Acute Current Visit: Yes (6) Hx of umbilical hernia repair Status: Acute Current Visit: Yes Assessment and Plan for All Diagnoses:: I am doubtful the NG tube is in an appropriate position. Patient has X-rays ordered for today. If showing improvement will probably discontinue NG and try a few sips of clears.
--- NOTE | 2017-12-24 07:54 | Progress Note ---
Subjective Patient reports: feels better Narrative: No complaints. Tolerated full liquids this morning without nausea or pain. Exam Vital signs and Labs for Last 24 Hours: Temp Pulse Resp BP Pulse Ox 98.5 F 58 L 18 116/65 94 L 12/24/17 04:00 12/24/17 04:00 12/24/17 04:00 12/24/17 04:00 12/24/17 04:00 I & O for Last 24 hours: Intake & Output 12/21/17 12/22/17 12/23/17 12/24/17 11:59 11:59 11:59 11:59 Intake Total 2390 / 2390 3390 / 3390 1560 / 1560 Output Total 852 / 852 450 / 450 900 / 900 Balance 1538 / 1538 2940 / 2940 660 / 660 Weight 240 lb - *Routine Abdominal Exam Present: soft Progress Note: A&P (1) Small bowel obstruction, partial Status: Acute Current Visit: Yes (2) Abdominal pain Status: Acute Current Visit: Yes (3) HTN (hypertension) Status: Acute Current Visit: Yes (4) GERD (gastroesophageal reflux disease) Status: Acute Current Visit: Yes (5) History of umbilical hernia Status: Acute Current Visit: Yes (6) Hx of umbilical hernia repair Status: Acute Current Visit: Yes Assessment and Plan for All Diagnoses:: Doing well with clinical resolution of SBO. Possible discharge home later today.
--- NOTE | 2017-12-24 08:14 | Progress Note ---
<Adelaide Figueroa - Last Filed: 12/24/17 08:12> Internal Medicine - PN: Subj *Date: 12/24/17 *Time: 08:12 Interval history: Patient is feeling much better today. He has been up walking around the hallway. He did have a bowel movement last night and ate all of his breakfast this morning. He is anxious to go home. Exam Vital signs and Labs for Last 24 Hours: Temp Pulse Resp BP Pulse Ox 98.5 F 58 L 18 116/65 94 L 12/24/17 04:00 12/24/17 04:00 12/24/17 04:00 12/24/17 04:00 12/24/17 04:00 I & O for Last 24 hours: Intake & Output 12/21/17 12/22/17 12/23/17 12/24/17 11:59 11:59 11:59 11:59 Intake Total 2390 / 2390 3390 / 3390 1560 / 1560 Output Total 852 / 852 450 / 450 900 / 900 Balance 1538 / 1538 2940 / 2940 660 / 660 Weight 240 lb - Constitutional no acute distress - *Routine Respiratory Exam Present: CTA bilaterally - *Routine Cardiovascular Exam Present: RRR - *Routine Abdominal Exam Present: soft, normoactive bowel sounds. Absent: tenderness - *Routine Extremities Exam Absent: edema Assessment and Plan (1) Small bowel obstruction, partial Current visit: Yes Status: Acute Category: Medical Code(s): K56.600 - Partial intestinal obstruction, unspecified as to cause (2) Abdominal pain Current visit: Yes Status: Acute Category: Medical Code(s): R10.9 - Unspecified abdominal pain (3) HTN (hypertension) Current visit: Yes Status: Acute Category: Medical Code(s): I10 - Essential (primary) hypertension (4) GERD (gastroesophageal reflux disease) Current visit: Yes Status: Acute Category: Medical Code(s): K21.9 - Gastro -esophageal reflux disease without esophagitis (5) History of umbilical hernia Current visit: Yes Status: Acute Category: Medical Code(s): Z87.19 - Personal history of other diseases of the digestive system (6) Hx of umbilical hernia repair Current visit: Yes Status: Acute Category: Surgical Code(s): Z98.890 - Other specified postprocedural states; Z87.19 - Personal history of other diseases of the digestive system - Assessment and plan all Dx Assessment and Plan for all problems:: NG tube has been removed and patient is doing much better. He is tolerating food. He may be able to be discharged home later on today. <Messi Soto - Last Filed: 12/24/17 08:49> Internal Medicine - PN: Subj *Date: 12/24/17 *Time: 08:48 Exam Vital signs and Labs for Last 24 Hours: Temp Pulse Resp BP Pulse Ox 98.3 F 76 18 140/90 96 12/24/17 08:00 12/24/17 08:00 12/24/17 08:00 12/24/17 08:00 12/24/17 08:00 I & O for Last 24 hours: Intake & Output 12/21/17 12/22/17 12/23/17 12/24/17 11:59 11:59 11:59 11:59 Intake Total 2390 / 2390 3390 / 3390 2280 / 2280 Output Total 852 / 852 450 / 450 900 / 900 Balance 1538 / 1538 2940 / 2940 1380 / 1380 Weight 240 lb Assessment and Plan (1) Small bowel obstruction, partial Current visit: Yes Status: Acute Category: Medical Code(s): K56.600 - Partial intestinal obstruction, unspecified as to cause (2) Abdominal pain Current visit: Yes Status: Acute Category: Medical Code(s): R10.9 - Unspecified abdominal pain (3) HTN (hypertension) Current visit: Yes Status: Acute Category: Medical Code(s): I10 - Essential (primary) hypertension (4) GERD (gastroesophageal reflux disease) Current visit: Yes Status: Acute Category: Medical Code(s): K21.9 - Gastro -esophageal reflux disease without esophagitis (5) History of umbilical hernia Current visit: Yes Status: Acute Category: Medical Code(s): Z87.19 - Personal history of other diseases of the digestive system (6) Hx of umbilical hernia repair Current visit: Yes Status: Acute Category: Surgical Code(s): Z98.890 - Other specified postprocedural states; Z87.19 - Personal history of other diseases of the digestive system - Assessment and plan all Dx Assessment and Plan for all problems:: Saw patient agree with above note.
--- NOTE | 2017-12-24 14:51 | Discharge Summary ---
General - General Admission date:: 12/21/17 Discharge date: 12/24/17 HPI HPI: 62 year old male with a history of an incarcerated umbilical hernia with small bowel obstruction in 2010, s/p emergent repair by Dr. Martin, presented to [facility] ER today complaining of middle lower abdominal pain. Patient reported the pain came on suddenly around 3 AM and was associated with nausea and some vomiting. He also noted a smaller volume bowel movement than normal. He had a CT scan in the ER which showed a partial SBO. Dr. Martin was contacted and requested admission for further observation and management. Patient states he has more pain and nausea since arriving at his room and Phenergan has been added to his treatment. Dr. Martin and I saw patient together. Hospital Course Hospital Course: An NG tube was placed and the patient felt some better. He was seen by Dr. Martin who wanted to attempt nonoperative management. He was given antiemetics and pain control. He had repeat x-rays showing improvement in the bowel gas pattern, however the, NG tube was coiled in the mid esophagus. He had to have the NG tube replaced. His symptoms did improve and he had a BM. He was started on clear liquids and then advanced to full liquids. The NG tube was removed. He was able to get up and walk around the hallway and was stable to be discharged home with a f/u at [facility] and with Dr. Martin. Objective Vital signs: Temp Pulse Resp BP Pulse Ox 98.3 F 76 18 140/90 96 12/24/17 08:00 12/24/17 08:00 12/24/17 08:00 12/24/17 08:00 12/24/17 08:00 Narrative: - Constitutional mild distress - *Routine HEENT Exam ENT: Present: mucous membranes moist - *Routine Respiratory Exam Present: CTA bilaterally - *Routine Cardiovascular Exam Present: RRR - *Routine Abdominal Exam Present: tenderness (periumbilical), distended - *Routine Extremities Exam Absent: cyanosis, clubbing, edema - *Routine Skin Exam Present: warm DS: Diagnosis - Discharge Diagnosis (1) Small bowel obstruction, partial Status: Acute (2) Abdominal pain Status: Acute (3) HTN (hypertension) Status: Acute (4) GERD (gastroesophageal reflux disease) Status: Acute (5) History of umbilical hernia Status: Acute (6) Hx of umbilical hernia repair Status: Acute Discharge Plan - Patient Discharge Instructions ACTIVITY: Continue current activity DIET: continue same diet Additional Instructions: No work until office f/u. Patient Instructions: DI for Small Bowel Obstruction - Follow up Plan Follow up with: Messi Soto MD [Primary Care Provider] - 12/27/17 10:45 am Disposition: Home, Self-Detention Medications: Home Medications Medication Instructions Recorded Confirmed Type aspirin 81 mg tablet,delayed 81 mg PO DAILY 08/13/17 12/21/17 History release celecoxib 200 mg capsule 200 mg PO DAILY 90 Days #90 08/13/17 12/21/17 History esomeprazole magnesium 40 mg 40 mg PO DAILY 90 Days #90 08/13/17 12/21/17 History capsule,delayed release lisinopril 10 10 mg PO DAILY 90 Days #90 08/13/17 12/21/17 History mg-hydrochlorothiazide 12.5 mg tablet ranitidine 300 mg tablet 300 mg PO HS 90 Days #90 08/13/17 12/22/17 History Montelukast Sodium [Montelukast 10 mg PO HS 09/15/17 12/21/17 History 10mg Tab] Potassium 99 mg PO DAILY 09/15/17 12/21/17 History Azelastine/Fluticasone [Dymista 1 spray NS DAILY 12/21/17 12/22/17 History Nasal [place]] Gluc/Fernie-MSM#1/C/Marc/Stanley/Bor 1 each PO BID 12/21/17 12/22/17 History [Osteo Bi-Flex Caplet] Loratadine [Allerclear] 10 mg PO DAILY 12/21/17 12/21/17 History Multivit-Min/FA/Lycopen/Lutein 1 each PO DAILY 12/21/17 12/21/17 History [Centrum Silver Tablet] Acyclovir [Zovirax] 1 applicatio TP 5XDAY 12/22/17 12/22/17 History Albuterol Sulfate [Albuterol HFA 2 puffs IH QIDP PRN 12/22/17 12/22/17 History Inhaler] [place]-3 Fatty Acids/Fish Oil 2 g PO DAILY 12/22/17 12/22/17 History [[place] 3 1,000 mg Softgel] Valacyclovir HCl [Valacyclovir] 1 gram PO TID 12/22/17 12/22/17 History Prescriptions/Medication Reconciliation: Continue esomeprazole magnesium 40 mg capsule,delayed release 40 mg PO DAILY 90 Days # 90 lisinopril 10 mg-hydrochlorothiazide 12.5 mg tablet 10 mg PO DAILY 90 Days # 90 ranitidine 300 mg tablet 300 mg PO HS 90 Days #90 aspirin 81 mg tablet,delayed release 81 mg PO DAILY celecoxib 200 mg capsule 200 mg PO DAILY 90 Days #90 Azelastine/Fluticasone [Dymista Nasal [place]] 1 spray NS DAILY Multivit-Min/FA/Lycopen/Lutein [Centrum Silver Tablet] 1 each PO DAILY Loratadine [Allerclear] 10 mg PO DAILY Gluc/Fernie-MSM#1/C/Marc/Stanley/Bor [Osteo Bi-Flex Caplet] 1 each PO BID Albuterol Sulfate [Albuterol HFA Inhaler] 2 puffs IH QIDP PRN PRN Reason: Shortness Of Breath Or Wheezing [place]-3 Fatty Acids/Fish Oil [[place] 3 1,000 mg Softgel] 2 g PO DAILY Montelukast Sodium [Montelukast 10mg Tab] 10 mg PO HS Potassium 99 mg PO DAILY Valacyclovir HCl [Valacyclovir] 1 gram PO TID Acyclovir [Zovirax] 1 applicatio TP 5XDAY
== END 2017-12-24 15:22 | disposition home or self-care (01) ==
LOC: ER 12:03 → 2ND 15:08
PROVIDERS: ADMIT Family Medicine; ATTEND Family Medicine
CPT/HCPCS: J2405

== ENCOUNTER → 2018-07-07 09:47 | Outpatient (CLI) | payer BC, SELFPAY ==
[2018-07-07 10:59] VITALS: PULSE 73
== END ==
PROVIDERS: PCP Family Medicine; Visit Provider Internal Medicine
DX: J45.909 Unspecified asthma, uncomplicated (principal)
CPT/HCPCS: 94060; 94640; 94726; 94729

== ENCOUNTER → 2018-08-09 14:50 | Outpatient (POV) | payer BC, SELFPAY | PROVIDERS: Visit Provider Internal Medicine | DX: Z00.00 Encounter for general adult medical examination without abnormal findings (principal) ==

== ENCOUNTER → 2018-08-19 11:57 | Outpatient (CLI) | payer BC, SELFPAY ==
--- NOTE | 2018-08-19 | XR_ITS ---
XR chest 2V HISTORY: Persistent cough nonsmoker ORDERING PHYSICIAN: Messi Soto MD PATIENT AGE: 62 years Technique: PA and lateral chest COMPARISON: PA and lateral chest 05/14/2015 FINDINGS: Chest lung dominguez appear stable with nothing definitely acute. Minor chronic changes and slight coarsening central markings but no focal pneumonia or active disease. The heart is normal in size. The adri and mediastinal structures appear stable. 2 PA films are submitted which are helpful as well. Lateral view unremarkable. No pleural effusion or pleural findings. Chest wall unremarkable. Normal pulmonary vascularity IMPRESSION stable chest nothing definitely acute.
== END ==
PROVIDERS: PCP Family Medicine; Visit Provider Family Medicine
DX: R05 Cough (principal)
CPT/HCPCS: 71046; 87070; 87205

== ENCOUNTER → 2018-12-28 11:44 | Outpatient (CLI) | payer BC, SELFPAY ==
--- NOTE | 2018-12-28 11:50 | XR_ITS ---
PROCEDURE: XR LUMBAR SPINE MIN 4V CLINICAL INDICATION: PAIN IN RT AND LT KNEE, ACUTE MIDLINE LOW BACK PAIN COMPARISON: No exams were available for comparison FINDINGS: There is normal alignment. No fracture or dislocation. There is mild degenerate disc disease at L2-L3 L3-L4 and L5-S1. No lytic or blastic change. Mild facet arthritic change L5-S1. IMPRESSION: Degenerative changes, no acute finding Dictated by: Bhanu Peguero MD 12/29/2018 18:10 Signed by: <Electronically signed by Bhanu Peguero MD in [place]> 12/29/2018 18:10
--- NOTE | 2018-12-28 11:50 | XR_ITS ---
PROCEDURE: XR KNEE RT 3V CLINICAL INDICATION: PAIN IN RT AND LT KNEE, ACUTE MIDLINE LOW BACK PAIN COMPARISON: KNEE3R KNEE-3 VIEWS-RT from 04/30/2014 FINDINGS: There are mild osteoarthritic changes involving all 3 compartments slightly greater at the medial compartment and patellofemoral joint. No fracture or dislocation. A calcific density overlies the proximal aspect of the tibia medially and may be due to a loose body within a bursa about the knee. This is somewhat more medial than where 1 would expect a Ely's cyst to reside. This did have a similar appearance on 04/30/2014. IMPRESSION: Mild osteoarthritic change. Possible loose body/synovial osteo chondroma in a bursa about the medial aspect of the knee versus a soft tissue calcification Dictated by: Bhanu Peguero MD 01/02/2019 14:57 Signed by: <Electronically signed by Bhanu Peguero MD in [place]> 01/02/2019 14:57
--- NOTE | 2018-12-28 11:50 | XR_ITS ---
PROCEDURE: XR KNEE LT 3V CLINICAL INDICATION: PAIN IN RT AND LT KNEE, ACUTE MIDLINE LOW BACK PAIN COMPARISON: No exams were available for comparison FINDINGS: There are minimal osteoarthritic changes of the medial compartment and patellofemoral joint. No fracture or dislocation. IMPRESSION: Minimal osteoarthritis Dictated by: Bhanu Peguero MD 01/02/2019 14:53 Signed by: <Electronically signed by Bhanu Peguero MD in [place]> 01/02/2019 14:53
== END ==
PROVIDERS: PCP Family Medicine; Visit Provider Physician Assistant
DX: M54.5 Low back pain (principal); M25.561 Pain in right knee; M25.562 Pain in left knee
CPT/HCPCS: 72110; 73562

== ENCOUNTER → 2019-01-26 09:09 | Outpatient (CLI) | payer BC, SELFPAY ==
--- NOTE | 2019-01-26 09:13 | XR_ITS ---
PROCEDURE: XR KNEE RT 4V CLINICAL INDICATION: Right knee pain COMPARISON: KNEE3R KNEE-3 VIEWS-RT from 04/30/2014 XR KNEE LT 3V from 12/28/2018 XR KNEE RT 3V from 12/28/2018 FINDINGS: No fracture or dislocation. No lytic or blastic change. There is normal mineralization. There are mild tricompartmental osteoarthritic changes greater in the medial compartment. Not significantly changed from 12/28/2018. Around the calcific density is present medial to the proximal tibia unchanged. Other findings:None. IMPRESSION: Osteoarthritic change with possible loose body medially otherwise negative with no change Dictated by: Bhanu Peguero MD 01/27/2019 03:54 Electronically signed by Bhanu Peguero MD in [place] 01/27/2019 03:54
== END ==
PROVIDERS: PCP Family Medicine; Visit Provider Orthopaedic Surgery
DX: M25.561 Pain in right knee (principal)
CPT/HCPCS: 73564

== ENCOUNTER → 2019-08-28 11:25 | Outpatient (CLI) | payer BC, SELFPAY ==
--- NOTE | 2019-08-28 11:32 | XR_ITS ---
PROCEDURE: XR CHEST 2V CLINICAL HISTORY: COUGH COMPARISON: CXR CHEST(2 VIEWS-NOT PORTABLE) from 05/14/2015 CT CHEST WO CONTRAST from 07/13/2016 CXR1VP XR chest portable from 12/22/2017 CXR2V XR chest 2V from 08/19/2018 FINDINGS: The cardiomediastinal silhouette and pulmonary vascularity are within normal limits. The lungs are clear without infiltrates, suspicious nodules, or pleural effusions. No acute bony abnormalities. IMPRESSION: No acute findings. Dictated by: Bhanu Peguero MD 08/28/2019 14:42 Electronically signed by Bhanu Peguero MD in [place] 08/28/2019 14:42
== END ==
PROVIDERS: PCP Family Medicine; Visit Provider Family Medicine
DX: R05 Cough (principal)
CPT/HCPCS: 71046

== ENCOUNTER → 2019-10-30 14:19 | Outpatient (POV) | payer BC, SELFPAY ==
[2019-10-30 14:45] VITALS: BP 155/95; PULSE 70; RESP 18; O2SAT 98; BMI 32.5
--- NOTE | 2019-10-30 15:36 | HMH.PMCON ---
Assessment and Plan (1) Degenerative disc disease Current visit: Yes Status: Chronic Qualifiers: Spinal region: lumbar Qualified Code(s): M51.36 - Other intervertebral disc degeneration, lumbar region Category: Medical (2) Radiculopathy Current visit: Yes Status: Chronic Category: Medical Code(s): M54.10 - Radiculopathy, site unspecified - Assessment and plan all Dx Assessment and Plan for all problems:: We will will schedule patient for an L4-L5 lumbar epidural steroid injection I believe it will be beneficial given the symptomology of the patient. I will follow-up with him afterwards reassess his symptoms at that time he has been instructed to call the office if he has any issues prior to his next appointment. Dr. Sidhu has reviewed this note and agrees with this plan of care. This note was dictated using voice recognition software and may contain errors or omissions HPI - Data of Consult Consult date: 10/30/19 Requesting Physician: Deanna Nelson APRN Primary Care Provider: Messi Soto MD - Consult Narrative Reason for consult: Back pain, leg pain History of present illness: Mr. Fuentes is a 64 year old male who presents today for consultation regards to his back and left leg pain. 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 He rates his pain a 7 out of 10. He is tried to go to chiropractic therapy and has not had any success in relieving this pain. Any increased activity increases pain will rest ice and a TENS unit decreases pain. He does have numbness and pain in his left leg all the way to his ankle. Patient's tried gabapentin with some relief however he is still having quite a bit of difficulty doing his daily activity. Patient is not on any anticoagulation therapy. CC: Deanna Nelson APRN [facility] History I have reviewed the patient's past medical history: Yes Medical History: Reports:: Asthma, Gastroesophageal Reflux Disease(GERD), Hypertension Denies:: Cancer, Diabetes Mellitus Type 1, Diabetes Mellitus Type 2, Internal Pacemaker, MRSA, Seizures *Have you ever received a pneumonia vaccine?: Yes *Have you received a flu vaccine this season?: Yes Other Medical History: Reports: Arthritis. Denies: Blood Transfusion Reaction Laterality Cases: Bilateral: Tonsillectomy, Other Other Surgeries: Yes: Cardiac Catheterization, Colonoscopy, Hernia Repair. No: Pacemaker Amputation: No Fractures: No - *Social History Smoking Status: Never smoker Alcohol Intake: never Alcohol Intake Frequency:: a few times a week Substance Use Type: denies use *Occupational Status:: other Housing: house Household Members: other *Travel in the last 8 weeks: None Family Hx:: Unable to obtain Review of Systems - Review of Systems ROS General: no recent weight change, no fever, no sleep disturbances Respiratory: no cough, no shortness of air, no recurring pulmonary infections Cardiovascular/Peripheral Vascular: No chest pain, No palpitations, no edema, no shortness of breath. Gastrointestinal: no new onset incontinence, normal bowel movements reported Genitourinary: no new onset incontinence Musculoskeletal: Back pain, leg pain Psychiatric: normal mood/ affect Neurological: [denies new onset weakness in extremities], [denies new onset balance issues] Meds Home Medications Medication Instructions Recorded Confirmed Type aspirin 81 mg tablet,delayed 81 mg PO DAILY 08/13/17 01/26/19 History release celecoxib 200 mg capsule 200 mg PO DAILY 90 Days #90 08/13/17 01/26/19 History esomeprazole magnesium 40 mg 40 mg PO DAILY 90 Days #90 08/13/17 01/26/19 History capsule,delayed release ranitidine HCl 300 mg tablet 300 mg PO HS 90 Days #90 08/13/17 01/26/19 History Montelukast Sodium [Montelukast 10 mg PO HS 09/15/17 01/26/19 History 10mg Tab] Potassium 99 mg PO DAILY 09/15/17 01/26/19 History Gisselle
== END ==
PROVIDERS: PCP Family Medicine; Visit Provider Clinical Nurse Specialist Family Health
DX: M51.16 Intervertebral disc disorders with radiculopathy, lumbar region (principal)
CPT/HCPCS: 99202

== ENCOUNTER 2019-11-10 11:22 | Day surgery (SDC) | payer BC, SELFPAY ==
[2019-11-10 12:10] VITALS: BP 115/77; PULSE 77; RESP 18; TEMP 36.7; O2SAT 96; BMI 33.2
[2019-11-10 12:25] VITALS: BP 134/85; PULSE 71; RESP 18; O2SAT 98
[2019-11-10 12:26] VITALS: BP 138/89; PULSE 75; RESP 18; O2SAT 98
[2019-11-10 12:30] VITALS: BP 122/78; PULSE 77; RESP 18; O2SAT 96
--- NOTE | 2019-11-10 12:31 | HMH.PMPROC ---
- Procedure Date: 11/10/19 Time: 12:31 Anesthesiologist:: Jass Sidhu MD Complications:: None Pre-procedure Diagnosis:: Degenerative disc disease of lumbar spine with lumbar radiculopathy symptoms Post-procedure Diagnosis:: Same Indications for Procedure:: This patient is a pleasant 64-year-old white male who we are treating for low back pain with left leg pain. He is having increasing pain at night. Will do lumbar epidural steroid injection today to see if this will help with his pain symptoms. Procedure Details:: Lumbar epidural steroid injection under fluoroscopy Informed consent was obtained and the risk and benefits of the procedure was explained to the patient. The patient was taken to the procedure room. The patient was placed prone on the procedure table. The patient was prepped and draped in sterile fashion. C-arm fluoroscopy was used to view the lumbar spine. Skin and subcutaneous tissues were anesthetized using lidocaine. I placed an 18-gauge epidural needle and advanced into the L4-L5 interspace using fluoroscopic guidance and [id number] to air. After confirmation of needle placement in the epidural space with dye I injected 2 mL of lidocaine 1.5% with Depo-Medrol 80 mg. Patient tolerated the procedure well with no complications. Plan and Disposition:: We will follow-up with him in 2 weeks. Will reevaluate his symptoms at that time.
== END 2019-11-10 12:30 | disposition home or self-care (01) ==
PROVIDERS: PCP Family Medicine; Visit Provider Anesthesiology
DX: M51.16 Intervertebral disc disorders with radiculopathy, lumbar region (principal); I10 Essential (primary) hypertension; Z87.891 Personal history of nicotine dependence; I45.10 Unspecified right bundle-branch block; J45.909 Unspecified asthma, uncomplicated; Z90.49 Acquired absence of other specified parts of digestive tract; Z80.9 Family history of malignant neoplasm, unspecified; Z82.49 Family history of ischemic heart disease and other diseases of the circulatory system; Z82.3 Family history of stroke; Z81.1 Family history of alcohol abuse and dependence; Z98.890 Other specified postprocedural states; Z79.899 Other long term (current) drug therapy
CPT/HCPCS: 62323; J1040; Q9966

== ENCOUNTER → 2019-11-16 11:23 | Outpatient (POV) | payer BC, SELFPAY | PROVIDERS: Visit Provider Audiologist | DX: Z00.00 Encounter for general adult medical examination without abnormal findings (principal) ==

== ENCOUNTER → 2019-11-30 15:06 | Outpatient (POV) | payer BC, SELFPAY ==
[2019-11-30 15:28] VITALS: BP 133/87; PULSE 68; RESP 18; O2SAT 98; BMI 32.5
--- NOTE | 2019-11-30 15:50 | HMH.PAINSOAP ---
[facility] Pain Management SOAP Note Subjective:: Patient is a pleasant 64-year-old white female who presents today for follow-up after lumbar epidural steroid injection at L4-L5. Patient is being treated for low back pain with lumbar radiculopathy symptoms. Patient has pain that is radiating into his left leg that is worsening at nighttime. He says he did get approximately 90% relief following his injection. He is having some pain return at this time. His pain is a 1 out of 10 with sitting. He reports the pain to start in his low back and radiate into his left lateral leg with numbness and tingling. He says he is not having any pain or numbness and tingling into the foot at this time, however. He does say his pain is worse as day progresses into evening and nighttime. Like to proceed with a repeat lumbar epidural steroid injection. He and I did discuss going a series of injections to get further relief. Review of Systems General: No recent weight changes, no fever, no sleep disturbances Respiratory: No cough, no shortness of air, no recurring pulmonary infections Cardiovascular/peripheral vascular: No chest pain, no palpitations, no edema, no shortness of breath Gastrointestinal: No new onset incontinence, normal bowel movements reported Genitourinary: No new onset incontinence Musculoskeletal: Back pain, left leg pain numbness and tingling Psychiatric: Normal mood/affect Neurological: [Denies weakness in extremities], [denies balance issues] Objective:: Physical exam General: Alert and oriented x3, no acute distress, pleasant and cooperative, [on room air] Lungs: Respirations even and unlabored, symmetrical chest expansion Eyes: PERRL Musculoskeletal: Flexion and extension of lumbar spine somewhat guarded secondary to pain, deep tendon reflexes normal, strength in upper and lower extremities [5/5], [abnormal gait noted] Neurological: Speech clear, armature balancer equal, no gross sensory deficit Assessment:: Degenerative disc disease lumbar spine with lumbar radiculopathy symptoms Plan:: We will proceed with a repeat lumbar epidural steroid injection at L4-L5. we will see the patient back in the clinic as injection to reassess his symptoms. He is not on any anticoagulation therapy. He will continue with a home stretching program. He has tried and failed other conservative therapies with physical therapy and anti-inflammatories. He has been instructed to contact clinic if he has any concerns before his next appointment. The patient and I specifically discussed risk factors for COVID19. These risks include, but are not limited to age greater than 60, heart or lung disease, diabetes, immunosuppression, and travel. We also discussed NSAIDs may worsen COVID19 infection or symptoms. Patient should not use NSAIDs to treat COVID19 signs or symptoms. Patient was also informed that any type of corticosteroid of any form (oral or injection) will decrease the patient's immune system response and may increase the likelihood of COVID19 infection [address] symptoms[address] Dr. Sidhu has reviewed this note and agrees with this plan of care. This note was dictated using voice recognition software and make contain errors or omissions. [facility] History I have reviewed the patient's past medical history: Yes Medical History: Reports:: Asthma, Gastroesophageal Reflux Disease(GERD), Hypertension Denies:: Cancer, Diabetes Mellitus Type 1, Diabetes Mellitus Type 2, Internal Pacemaker, MRSA, Seizures *Have you ever received a pneumonia vaccine?: Yes *Have you received a flu vaccine this season?: Yes Other Medical History: Reports: Arthritis, Cataracts. Denies: Blood Transfusion Reaction Laterality Cases: Bilateral: Tonsillectomy, Other Other Surgeries: Yes: Cardiac Catheterization, Colonoscopy, Colon Resection, Hernia Repair. No: Pacemaker Amputation: No Fractures: No - *Social History Smoking Status: Former smoker Alcohol Intake: current Alcohol Intake Frequency::
== END ==
PROVIDERS: PCP Family Medicine; Visit Provider Clinical Nurse Specialist Family Health
DX: M51.16 Intervertebral disc disorders with radiculopathy, lumbar region (principal)
CPT/HCPCS: 99212

== ENCOUNTER 2019-12-15 10:13 | Day surgery (SDC) | payer BC, SELFPAY ==
[2019-12-15 10:32] VITALS: BP 118/75; PULSE 75; RESP 18; TEMP 36.6; O2SAT 95; BMI 33.2
--- NOTE | 2019-12-15 11:09 | HMH.PMPROC ---
- Procedure Date: 12/15/19 Time: 11:12 Anesthesiologist:: Jass Sidhu MD Complications:: None Pre-procedure Diagnosis:: Degenerative disc disease of lumbar spine with lumbar radiculopathy symptoms Post-procedure Diagnosis:: Same Indications for Procedure:: This patient is a pleasant 62-year-old white male who we are treating for low back pain with lumbar radiculopathy symptoms. He has increasing pain in his low back rating down his left leg. He is done well with epidural steroid injections before with over 90% relief in his pain symptoms. His pain is now returned. We will do a repeat lumbar pleural steroid injection under fluoroscopy today. Procedure Details:: Lumbar epidural steroid injection under fluoroscopy Informed consent was obtained and the risk and benefits of the procedure was explained to the patient. The patient was taken to the procedure room. The patient was placed prone on the procedure table. The patient was prepped and draped in sterile fashion. C-arm fluoroscopy was used to view the lumbar spine. Skin and subcutaneous tissues were anesthetized using lidocaine. I placed an 18-gauge epidural needle and advanced into the L4-L5 interspace using fluoroscopic guidance and [id number] to air. After confirmation of needle placement in the epidural space with dye I injected 2 mL of lidocaine 1.5% with Depo-Medrol 80 mg. Patient tolerated the procedure well with no complications. Plan and Disposition:: We will follow-up with him in 2 weeks. Will reevaluate his symptoms at that time.
[2019-12-15 11:11] VITALS: BP 135/88; PULSE 85; RESP 18; O2SAT 98
[2019-12-15 11:13] VITALS: BP 140/87; PULSE 85; RESP 18; O2SAT 98
[2019-12-15 11:20] VITALS: BP 129/81; PULSE 67; RESP 18; O2SAT 95
== END 2019-12-15 11:20 | disposition home or self-care (01) ==
LOC: SC.PAINP 10:15
PROVIDERS: PCP Family Medicine; Visit Provider Anesthesiology
DX: M51.16 Intervertebral disc disorders with radiculopathy, lumbar region (principal); I10 Essential (primary) hypertension; J45.909 Unspecified asthma, uncomplicated; I45.10 Unspecified right bundle-branch block; Z90.89 Acquired absence of other organs
CPT/HCPCS: 62323; J1040; Q9966

== ENCOUNTER → 2020-01-04 11:09 | Outpatient (POV) | payer BC, SELFPAY ==
--- NOTE | 2020-01-04 11:55 | HMH.PAINSOAP ---
[facility] Pain Management SOAP Note Subjective:: Patient is a pleasant 64-year-old white male who presents today for follow-up. He has been treated for low back pain with lumbar radiculopathy symptoms. He is having increased pain in his low back radiating into the posterior aspect of his left leg. He rates his pain a 3 out of 10 today. This is his second epidural steroid injection. He would like to proceed with his third injection. Patient says he has been told in the past that he does have spinal stenosis on his imaging. He says that his pain is worse to the low back with weakness in his left leg. He does feel as though his left leg is going to give out . He says he has been reviewing information online regarding a mild procedure. He would like to his discussed the procedure with Dr. Sidhu at his next injection. Review of Systems General: No recent weight changes, no fever, no sleep disturbances Respiratory: No cough, no shortness of air, no recurring pulmonary infections Cardiovascular/peripheral vascular: No chest pain, no palpitations, no edema, no shortness of breath Gastrointestinal: No new onset incontinence, normal bowel movements reported Genitourinary: No new onset incontinence Musculoskeletal: Low back pain, left leg pain with numbness and tingling and heaviness Psychiatric: Normal mood/affect Neurological: [Denies weakness in extremities], [denies balance issues] Objective:: Physical exam General: Alert and oriented x3, no acute distress, pleasant and cooperative, [on room air] Lungs: Respirations even and unlabored, symmetrical chest expansion Eyes: PERRL Musculoskeletal: Flexion and extension of lumbar spine somewhat guarded secondary to pain, deep tendon reflexes normal, strength in upper and lower extremities [5/5], [abnormal gait noted] Neurological: Speech clear, 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 We will also perform an epidurogram at that time to see if the patient is a mild candidate. He is not on any anticoagulation therapy. We will see him back in the clinic after his injection at L4-L5 to reassess his symptoms. He has been instructed to contact clinic if he has any concerns before his next appointment. The patient and I specifically discussed risk factors for COVID19. These risks include, but are not limited to age greater than 60, heart or lung disease, diabetes, immunosuppression, and travel. We also discussed NSAIDs may worsen COVID19 infection or symptoms. Patient should not use NSAIDs to treat COVID19 signs or symptoms. Patient was also informed that any type of corticosteroid of any form (oral or injection) will decrease the patient's immune system response and may increase the likelihood of COVID19 infection [address] symptoms[address] Sidhu has reviewed this note and agrees with this plan of care. This note was dictated using voice recognition software and make contain errors or omissions. [facility] History I have reviewed the patient's past medical history: Yes Medical History: Reports:: Asthma, Gastroesophageal Reflux Disease(GERD), Hypertension Denies:: Cancer, Diabetes Mellitus Type 1, Diabetes Mellitus Type 2, Internal Pacemaker, MRSA, Seizures *Have you ever received a pneumonia vaccine?: No *Have you received a flu vaccine this season?: No Other Medical History: Reports: Arthritis, Cataracts. Denies: Blood Transfusion Reaction Laterality Cases: Bilateral: Tonsillectomy, Other Other Surgeries: Yes: Cardiac Catheterization, Colonoscopy, Colon Resection, Hernia Repair. No: Pacemaker Amputation: No Fractures: No - *Social History Smoking Status: Former smoker Alcohol Intake: current Alcohol Intake Frequency:: a few times a month Substance Use Type: denies use *Occupational Status:: retired Housing: house Household Members
[2020-01-04 12:40] VITALS: BP 132/88; PULSE 85; RESP 18; O2SAT 98; BMI 33.2
== END ==
PROVIDERS: PCP Family Medicine; Visit Provider Clinical Nurse Specialist Family Health
DX: M51.16 Intervertebral disc disorders with radiculopathy, lumbar region (principal)
CPT/HCPCS: 99212

== ENCOUNTER 2020-01-12 15:06 | Day surgery (SDC) | payer BC, SELFPAY ==
[2020-01-12 15:12] VITALS: BP 131/79; PULSE 82; RESP 18; TEMP 36.6; O2SAT 98; BMI 33.2
[2020-01-12 15:23] VITALS: BP 155/78; BP 155/92; PULSE 82; PULSE 85; RESP 18; O2SAT 98
--- NOTE | 2020-01-12 15:26 | P.PCN_ITS ---
- Procedure Date: 01/12/20 Time: 15:26 Anesthesiologist:: aJss Sidhu MD Complications:: None Pre-procedure Diagnosis:: Degenerative disc disease of lumbar spine with lumbar radiculopathy symptoms and spinal stenosis with neurogenic claudication symptoms Post-procedure Diagnosis:: Same Indications for Procedure:: This patient is a pleasant 64-year-old white male who we are treating for low back pain with lumbar radiculopathy symptoms and spinal stenosis with neurogenic claudication symptoms. He does have significant spinal stenosis. His left leg goes to sleep while standing and walking. He can only stand for 5 minutes and only walk couple 100 yards. We will do lumbar epidural steroid injection today and do an epidurogram to assess for candidacy for minimally invasive lumbar decompression. Procedure Details:: Lumbar epidural steroid injection under fluoroscopy with epidurogram Informed consent was obtained and the risk and benefits of the procedure was explained to the patient. The patient was taken to the procedure room. The patient was placed prone on the procedure table. The patient was prepped and draped in sterile fashion. C-arm fluoroscopy was used to view the lumbar spine. Skin and subcutaneous tissues were anesthetized using lidocaine. I placed an 18-gauge epidural needle and advanced into the L4-L5 interspace using fluor oscopic guidance and [id number] to air. After confirmation of needle placement in the epidural space with dye I injected 2 mL of lidocaine 1.5% with Depo-Medrol 80 mg. Patient tolerated the procedure well with no complications. Plan and Disposition:: We will plan on minimally invasive lumbar decompression of L3-L4 and L4-L5 bilaterally.. He does have significant stenosis at both of these levels based on epidurogram and MRI. Worst stenosis and pain symptoms are on the left side.
[2020-01-12 15:33] VITALS: BP 145/84; PULSE 75; RESP 18; O2SAT 98
== END 2020-01-12 15:34 | disposition home or self-care (01) ==
LOC: SC.PAINP 15:07
PROVIDERS: PCP Family Medicine; Visit Provider Anesthesiology
DX: M51.16 Intervertebral disc disorders with radiculopathy, lumbar region (principal); M48.062 Spinal stenosis, lumbar region with neurogenic claudication; K21.9 Gastro-esophageal reflux disease without esophagitis; I10 Essential (primary) hypertension; J45.909 Unspecified asthma, uncomplicated; I45.10 Unspecified right bundle-branch block; I44.4 Left anterior fascicular block; Z90.89 Acquired absence of other organs; Z87.19 Personal history of other diseases of the digestive system; Z79.82 Long term (current) use of aspirin; Z79.899 Other long term (current) drug therapy; Z82.49 Family history of ischemic heart disease and other diseases of the circulatory system
CPT/HCPCS: 62323; J1040; Q9966

== ENCOUNTER → 2020-02-05 09:19 | Outpatient (POV) | payer BC, SELFPAY ==
[2020-02-05 09:45] VITALS: BP 142/77; PULSE 77; RESP 18; O2SAT 99; BMI 33.2
--- NOTE | 2020-02-05 10:09 | HMH.PAINSOAP ---
[facility] Pain Management SOAP Note Subjective:: Patient is a pleasant 64-year-old white male who presents today for follow-up. He is awaiting a mild procedure. His insurance does not require prior authorization however we are awaiting a predetermination. Patient rates his pain a 0 out of 10. Most of his pain is when he standing and walking. Patient has no pain with sitting. He is an appropriate candidate for a minimally invasive lumbar decompression L3-L4 L4-L5 bilaterally. ROS General: no recent weight change, no fever, no sleep disturbances Respiratory: no cough, no shortness of air, no recurring pulmonary infections Cardiovascular/Peripheral Vascular: No chest pain, No palpitations, no edema, no shortness of breath. Gastrointestinal: no new onset incontinence, normal bowel movements reported Genitourinary: no new onset incontinence Musculoskeletal: Back pain, leg pain Psychiatric: normal mood/ affect Neurological: [denies new onset weakness in extremities], [denies new onset balance issues] Objective:: Physical Exam General: Alert and oriented x3, no acute distress, pleasant and cooperative, [on room air] Lungs: Resps E/U, Symmetrical chest expansion, Eyes: PERRL Musculoskeletal: Flexion and extension of lumbar spine somewhat guarded secondary to pain, deep tendon reflexes normal, strength in upper and lower extremities [5/5], slightly antalgic gait noted Neurological: speech clear, 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 We will follow-up with him after this reassess his symptoms at that time he has been instructed to call the office if he has any issues prior to his next appointment. Dr. Sidhu has reviewed this note and agrees with this plan of care. This note was dictated using voice recognition software and may contain errors or omissions [facility] History I have reviewed the patient's past medical history: Yes Medical History: Reports:: Asthma, Gastroesophageal Reflux Disease(GERD), Hypertension Denies:: Cancer, Diabetes Mellitus Type 1, Diabetes Mellitus Type 2, Internal Pacemaker, MRSA, Seizures *Have you ever received a pneumonia vaccine?: Yes *Have you received a flu vaccine this season?: Yes Other Medical History: Reports: Arthritis, Cataracts. Denies: Blood Transfusion Reaction Laterality Cases: Bilateral: Tonsillectomy, Other Other Surgeries: Yes: Cardiac Catheterization, Colonoscopy, Colon Resection, Hernia Repair. No: Pacemaker Amputation: No Fractures: No - *Social History Smoking Status: Former smoker Alcohol Intake: current Alcohol Intake Frequency:: holidays/special occasions only Substance Use Type: denies use *Occupational Status:: other Housing: house Household Members: spouse *Travel in the last 8 weeks: None Family Hx:: Cancer, Heart Attack, Stroke, Alcoholism
== END ==
PROVIDERS: PCP Family Medicine; Visit Provider Clinical Nurse Specialist Family Health
DX: M48.062 Spinal stenosis, lumbar region with neurogenic claudication (principal)
CPT/HCPCS: 99212

== ENCOUNTER → 2020-02-22 08:23 | Outpatient (POV) | payer BC, SELFPAY ==
[2020-02-22 08:34] VITALS: BP 133/74; PULSE 85; RESP 18; O2SAT 99; BMI 31.4
--- NOTE | 2020-02-22 08:50 | HMH.PAINSOAP ---
[facility] Pain Management SOAP Note Subjective:: Patient is a 64-year-old white male who presents today for follow-up. He has been treated for chronic low back pain with lumbar radiculopathy symptoms well as spinal stenosis with neurogenic claudication symptoms. Patient says his pain is a 9 out of 10 today. He has undergone 3 epidural steroid injections to his lumbar spine and he does get great relief, greater than 80% for a couple weeks, however, his pain does return. He says that his pain is progressively getting worse to the point he is unable to tolerate the pain. He is unable to walk very far due to heaviness and weakness in his lower extremities. Leaning forward does give the patient relief. He has tried physical therapy in the past and has not gotten any relief. He is also tried ice and heat therapies and oral [id number] medications. He did take [place] and gabapentin in the past with no relief. He is awaiting predetermination for the mild procedure. Unfortunately, the patient is very anxious today because he is continuing to have severe pain and feels that nothing was getting done. Review of Systems General: No recent weight changes, no fever, no sleep disturbances Respiratory: No cough, no shortness of air, no recurring pulmonary infections Cardiovascular/peripheral vascular: No chest pain, no palpitations, no edema, no shortness of breath Gastrointestinal: No new onset incontinence, normal bowel movements reported Genitourinary: No new onset incontinence Musculoskeletal: Low back pain, bilateral lower extremity pain with heaviness and weakness Psychiatric: Normal mood/affect Neurological: [Denies weakness in extremities], [denies balance issues] Objective:: Physical exam General: Alert and oriented x3, no acute distress, pleasant and cooperative, [on room air] Lungs: Respirations even and unlabored, symmetrical chest expansion Eyes: PERRL Musculoskeletal: Flexion and extension of lumbar spine somewhat guarded secondary to pain, deep tendon reflexes normal, strength in upper and lower extremities [5/5], [abnormal gait noted] Neurological: Speech clear, wirer street light equal, no gross sensory deficit Assessment:: Degenerative disc disease lumbar spine with lumbar radiculopathy symptoms, spinal stenosis with neurogenic claudication symptoms Plan:: The patient would like to undergo a lumbar epidural steroid injection until he is approved for the mild procedure. We will schedule him for an epidural steroid injection at L4-L5. He is not on any anticoagulation therapy. Patient I did discuss possible vert a flex procedure if he is not approved for the mild procedure. The plan was to undergo the mild procedure L3-L4 L4-L5 bilaterally. We will see the patient back after his epidural steroid injection to reassess his symptoms. He has been instructed to contact clinic if he has any concerns before his next appointment the patient and I specifically discussed risk factors for COVID19. These risks include, but are not limited to age greater than 60, heart or lung disease, diabetes, immunosuppression, and travel. We also discussed NSAIDs may worsen COVID19 infection or symptoms. Patient should not use NSAIDs to treat COVID19 signs or symptoms. Patient was also informed that any type of corticosteroid of any form (oral or injection) will decrease the patient's immune system response and may increase the likelihood of COVID19 infection [address] symptoms[address] Sidhu has reviewed this note and agrees with this plan of care. This note was dictated using voice recognition software and make contain errors or omissions. [facility] History I have reviewed the patient's past medical history: Yes Medical History: Reports:: Asthma, Gastroesophageal Reflux Disease(GERD), Hypertension Denies:: Cancer, Diabetes Mellitus Type 1, Diabetes Mellitus Type 2, Internal Pacemaker, MRSA, Seizures *Have you ever received a pneumonia vaccine?: Yes *Have you received a fl
== END ==
PROVIDERS: PCP Family Medicine; Visit Provider Clinical Nurse Specialist Family Health
DX: M51.16 Intervertebral disc disorders with radiculopathy, lumbar region (principal); M48.062 Spinal stenosis, lumbar region with neurogenic claudication
CPT/HCPCS: 99212

== ENCOUNTER 2020-02-23 10:35 | Day surgery (SDC) | payer BC, SELFPAY ==
[2020-02-23 11:01] VITALS: BP 119/75; PULSE 67; RESP 18; TEMP 36.2; O2SAT 95; BMI 33.2
--- NOTE | 2020-02-23 11:19 | HMH.PMPROC ---
- Procedure Date: 02/23/20 Time: 11:19 Anesthesiologist:: Jass Sidhu MD Complications:: None Pre-procedure Diagnosis:: Degenerative disc disease of lumbar spine with lumbar radiculopathy symptoms Post-procedure Diagnosis:: Same Indications for Procedure:: This patient is a pleasant 64-year-old white male who we are treating for low back pain with lumbar spinal stenosis and neurogenic claudication symptoms. He is temporary relief from lumbar epidural steroid injections. He is 80 to 90% better for several weeks however his pain does return. We are trying to get him approved for procedure for lumbar spinal stenosis either the minimally invasive lumbar decompression or superion vertilfex procedure at L3-L4 and L4-L5. Today we will do a repeat lumbar pleural steroid injection to give him some temporary relief of his pain symptoms. Procedure Details:: Lumbar epidural steroid injection under fluoroscopy Informed consent was obtained and the risk and benefits of the procedure was explained to the patient. The patient was taken to the procedure room. The patient was placed prone on the procedure table. The patient was prepped and draped in sterile fashion. C-arm fluoroscopy was used to view the lumbar spine. Skin and subcutaneous tissues were anesthetized using lidocaine. I placed an 18-gauge epidural needle and advanced into the L4-L5 interspace using fluoroscopic guidance and [id number] to air. After confirmation of needle placement in the epidural space with dye I injected 2 mL of lidocaine 1.5% with Depo-Medrol 80 mg. Patient tolerated the procedure well with no complications. Plan and Disposition:: We will follow-up with him in 2 weeks. Will reevaluate his symptoms at that time.
[2020-02-23 11:21] VITALS: BP 135/77; PULSE 89; RESP 18; O2SAT 99
[2020-02-23 11:49] VITALS: BP 145/91; PULSE 75; RESP 18; O2SAT 99
== END 2020-02-23 11:50 | disposition home or self-care (01) ==
LOC: SC.PAINP 10:36
PROVIDERS: PCP Family Medicine; Visit Provider Anesthesiology
DX: M51.16 Intervertebral disc disorders with radiculopathy, lumbar region (principal); M48.062 Spinal stenosis, lumbar region with neurogenic claudication; E78.5 Hyperlipidemia, unspecified; I10 Essential (primary) hypertension; G47.33 Obstructive sleep apnea (adult) (pediatric); J45.909 Unspecified asthma, uncomplicated; K21.9 Gastro-esophageal reflux disease without esophagitis; I45.2 Bifascicular block; N42.9 Disorder of prostate, unspecified; Z90.89 Acquired absence of other organs
CPT/HCPCS: 62323; J1040; Q9966

== ENCOUNTER → 2020-03-04 14:46 | Outpatient (POV) | payer BC, SELFPAY ==
[2020-03-04 15:06] VITALS: BP 141/91; PULSE 78; RESP 18; TEMP 36.6; O2SAT 99; BMI 33.2
--- NOTE | 2020-03-04 15:19 | HMH.PAINSOAP ---
[facility] Pain Management SOAP Note Subjective:: Patient is a pleasant 64-year-old white male who presents today for follow-up. Patient had a lumbar epidural steroid injection which he did not get any improvement with. Patient is awaiting approval for a minimally invasive lumbar decompression. Patient has been denied for this procedure at this time. He has significant spinal stenosis with ligamentum flavum hypertrophy at L3-L4 L4-L5. He is interested in pursuing a self-pay option potentially. We will call his insurance to see if there is any chance that this could be approved. If not we will find out what the options are for cost in [place]. He rates his pain 8 out of 10. It is worse when he standing and walking. ROS General: no recent weight change, no fever, no sleep disturbances Respiratory: no cough, no shortness of air, no recurring pulmonary infections Cardiovascular/Peripheral Vascular: No chest pain, No palpitations, no edema, no shortness of breath. Gastrointestinal: no new onset incontinence, normal bowel movements reported Genitourinary: no new onset incontinence Musculoskeletal: Back pain, leg pain Psychiatric: normal mood/ affect Neurological: Weakness in bilateral lower extremities when standing and walking, [denies new onset balance issues] Objective:: Physical Exam General: Alert and oriented x3, no acute distress, pleasant and cooperative, [on room air] Lungs: Resps E/U, Symmetrical chest expansion, Eyes: PERRL Musculoskeletal: Flexion and extension of lumbar spine somewhat guarded secondary to pain, deep tendon reflexes normal, strength in upper and lower extremities [5/5], antalgic gait noted Neurological: speech clear, translational specialist equal, no gross sensory deficits Assessment:: Degenerative disc disease lumbar spine lumbar radiculopathy, spinal stenosis with neurogenic claudication and ligamentum flavum hypertrophy Plan:: We will continue to look into his coverage with his current insurance plan. If we do not get approval we will move forward with potential self-pay options. He has been instructed to call the office if he has any issues. Dr. Sidhu has reviewed this note and agrees with this plan of care. This note was dictated using voice recognition software and may contain errors or omissions [facility] History I have reviewed the patient's past medical history: Yes Medical History: Reports:: Asthma, Gastroesophageal Reflux Disease(GERD), Hyperlipidemia, Hypertension Denies:: Cancer, Diabetes Mellitus Type 1, Diabetes Mellitus Type 2, Internal Pacemaker, MRSA, Seizures *Have you ever received a pneumonia vaccine?: Yes *Have you received a flu vaccine this season?: Yes Other Medical History: Reports: Arthritis, Cataracts. Denies: Blood Transfusion Reaction Laterality Cases: Bilateral: Tonsillectomy, Other Other Surgeries: Yes: Cardiac Catheterization, Colonoscopy, Colon Resection, Hernia Repair. No: Pacemaker Amputation: No Fractures: No - *Social History Smoking Status: Former smoker Alcohol Intake: never Alcohol Intake Frequency:: holidays/special occasions only Substance Use Type: denies use *Occupational Status:: retired Housing: house Household Members: spouse *Travel in the last 8 weeks: None Family Hx:: Cancer, Heart Attack, Stroke, Alcoholism
== END ==
PROVIDERS: PCP Family Medicine; Visit Provider Clinical Nurse Specialist Family Health
DX: M51.16 Intervertebral disc disorders with radiculopathy, lumbar region (principal); M48.062 Spinal stenosis, lumbar region with neurogenic claudication; M46.06 Spinal enthesopathy, lumbar region
CPT/HCPCS: 99212

== ENCOUNTER → 2020-03-14 10:06 | Outpatient (POV) | payer BC, SELFPAY ==
--- NOTE | 2020-03-14 10:42 | HMH.PAINSOAP ---
[facility] Pain Management SOAP Note Subjective:: Patient is a pleasant 64-year-old white male who presents today for follow-up. The patient is being treated for chronic low back pain with lumbar radiculopathy symptoms as well as spinal stenosis with neurogenic claudication symptoms. The patient has undergone injective therapy for which he did get 80 to 90% relief for several weeks, however, his pain did return. He has had physical therapy for greater than 6 weeks and does continue with home stretching program. The patient does continue with ice and heat therapies. He has also tried oral medications with no relief. Patient was scheduled for a minimally invasive lumbar decompression procedure, however, he was denied by his insurance. The patient is having significant pain into his left lower extremity. It is causing numbness and tingling as well as weakness to the point that the patient is concerned he is going to fall. He has had falls in the past. The patient does get relief if he leans forward. His pain is worse with standing and walking and does improve somewhat with sitting, however, prolonged sitting causes worsening pain. Patient has tried and failed all conservative therapies and is concerned that his pain is going to continue to worsen. Patient is not considered a surgical candidate from a neurosurgical standpoint at this time. Patient says that he is unsure what his options are at this point, however, he is ready to proceed with the mild procedure at any rate. He does rate his pain a 7 out of 10 today. He is accompanied by his . Review of Systems General: No recent weight changes, no fever, no sleep disturbances Respiratory: No cough, no shortness of air, no recurring pulmonary infections Cardiovascular/peripheral vascular: No chest pain, no palpitations, no edema, no shortness of breath Gastrointestinal: No new onset incontinence, normal bowel movements reported Genitourinary: No new onset incontinence Musculoskeletal: Low back pain, left leg pain with numbness tingling and weakness Psychiatric: Normal mood/affect Neurological: [Denies weakness in extremities], [denies balance issues] Objective:: Physical exam General: Alert and oriented x3, no acute distress, pleasant and cooperative, [on room air] Lungs: Respirations even and unlabored, symmetrical chest expansion Eyes: PERRL Musculoskeletal: Flexion and extension of bar spine somewhat guarded secondary to pain, deep tendon reflexes normal, strength in upper and lower extremities [5/5], [abnormal gait noted] positive straight leg test Neurological: Speech clear, biomaterials 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 We will see the patient back in the clinic afterwards to reassess his symptoms. He will undergo the procedure at the [facility] [place]. He is not on any anticoagulation therapy. We will continue with a home stretching program and anti-inflammatories. Patient has been instructed to contact the clinic if he has any concerns before his next appointment. The patient and I specifically discussed risk factors for COVID19. These risks include, but are not limited to age greater than 60, heart or lung disease, diabetes, immunosuppression, and travel. We also discussed NSAIDs may worsen COVID19 infection or symptoms. Patient should not use NSAIDs to treat COVID19 signs or symptoms. Patient was also informed that any type of corticosteroid of any form (oral or injection) will decrease the patient's immune system response and may increase the likelihood of COVID19 [address] Sidhu has reviewed this note and agrees with this plan of care. This note was dictated using voice recognition software and make contain errors
[2020-03-14 10:53] VITALS: BP 132/74; PULSE 74; RESP 18; O2SAT 98; BMI 31.4
== END ==
PROVIDERS: PCP Family Medicine; Visit Provider Clinical Nurse Specialist Family Health
DX: M51.16 Intervertebral disc disorders with radiculopathy, lumbar region (principal); M48.062 Spinal stenosis, lumbar region with neurogenic claudication
CPT/HCPCS: 99212

== ENCOUNTER → 2020-07-04 13:56 | Outpatient (POV) | payer BC, SELFPAY | PROVIDERS: Visit Provider Audiologist | DX: Z00.00 Encounter for general adult medical examination without abnormal findings (principal) ==

== ENCOUNTER → 2020-07-25 13:06 | Outpatient (CLI) | payer BC, SELFPAY ==
--- NOTE | 2020-07-25 | XR_ITS ---
PROCEDURE: XR FOOT LT MIN 3V CLINICAL INDICATION: PAIN IN LT FOOT COMPARISON: No exams were available for comparison FINDINGS: There is mild hallux valgus with osteoarthritis at the 1st MTP. Osteoarthritic changes are present at tarsal metatarsal junction talonavicular and navicular cuneiform joint. There are also osteoarthritic changes at ankle. There is hyper extension of the toes. Exostosis is present at the dorsal aspect of the proximal metatarsal region as seen on the lateral view. There is mild prominence of a posterior talar process with 2 calcific densities additionally noted at the posterior talar region. IMPRESSION: Degenerative changes as described above. Dictated by: Bhanu Peguero MD 07/25/2020 16:45 Bhanu Peguero MD in [place] 07/25/2020 16:45
--- NOTE | 2020-07-25 | XR_ITS ---
PROCEDURE: XR FOOT RT MIN 3V CLINICAL INDICATION: PAIN IN RT FOOT COMPARISON: No exams were available for comparison FINDINGS: Degenerative changes at the tarsal metatarsal junction talonavicular and navicular cuneiform joint. Osteoarthritic changes are also present at the ankle. No fracture or dislocation. No lytic or blastic change. IMPRESSION: Degenerative changes Dictated by: Bhanu Peguero MD 07/25/2020 16:47 Bhanu Peguero MD in [place] 07/25/2020 16:47
== END ==
PROVIDERS: PCP Family Medicine; Visit Provider Family Medicine
DX: M79.672 Pain in left foot (principal); M79.671 Pain in right foot
CPT/HCPCS: 73630

== ENCOUNTER → 2021-02-11 11:09 | Outpatient (CLI) | payer BC, SELFPAY | PROVIDERS: PCP Family Medicine; Visit Provider Nurse Practitioner | DX: Z20.822 Contact with and (suspected) exposure to COVID-19 (principal) | CPT/HCPCS: C9803; U0003; U0005 ==

== ENCOUNTER → 2021-05-02 13:07 | Outpatient (CLI) | payer BC, SELFPAY ==
--- NOTE | 2021-05-02 13:50 | PC.NURSE ---
Pt completed PFT and 6 Minute Walk Test without incident. Albuterol 0.083% given via HHN, per protocol, Pt tolerated tx well.
== END ==
PROVIDERS: PCP Family Medicine; Visit Provider Internal Medicine Pulmonary Disease
DX: R06.02 Shortness of breath (principal); R05.9 Cough, unspecified
CPT/HCPCS: 94060; 94618; 94726; 94729

== ENCOUNTER → 2021-06-10 10:32 | Outpatient (CLI) | payer BC, SELFPAY ==
--- NOTE | 2021-06-10 10:40 | XR_ITS ---
FINAL REPORT CLINICAL HISTORY: Pain, nail discoloration x 1 month..no trauma FINDINGS: 3 views of the right foot were obtained. There is no acute fracture or dislocation. There is a moderate plantar spur. There is a 1.4 cm os trigonum. There are moderate hypertrophic changes along the dorsal tarsometatarsal joints. The soft tissues are unremarkable. IMPRESSION: Moderate degenerative change. Reviewed, Interpreted and Dictated by Ayan Hammer MD Transcribed by Vikash Marie Authenticated by Ayan Hammer MD on 06/10/2021 01:14:53 PM [facility]
== END ==
PROVIDERS: PCP Family Medicine; Visit Provider Podiatrist
DX: R52 Pain, unspecified
CPT/HCPCS: 73630

== ENCOUNTER → 2021-08-26 09:07 | Outpatient (CLI) | payer BC, SELFPAY ==
[2021-08-26 09:32] LABS: Blood Urea Nitrogen 13 mg/dl (9-20); Estimated Glomerular Filt Rate 114 ml/min (>60); GFR (African American) 138 ML/MIN (>60)
--- NOTE | 2021-08-26 12:00 | CT_ITS ---
FINAL REPORT TECHNIQUE: Axial CT images of the pelvis were obtained after the administration of intravenous contrast. Coronal reformatted images were also obtained.This study was performed with techniques to keep radiation doses as low as reasonably achievable (ALARA). Individualized dose reduction techniques using automated exposure control or adjustment of mA and/or kV according to the patient's size were employed. CLINICAL HISTORY: RECTAL PAIN, DECREASED URINE OUTPUT, LEUKOCYTOSIS FINDINGS: CT PELVIS W/CONTRAST The visualized portions of the kidneys are unremarkable. The appendix is unremarkable. There is extensive descending and sigmoid diverticulosis without evidence of diverticulitis. There is a complex fluid attenuation in the inferior and posterior rectum measuring approximately 4.2 x 3.2 cm in craniocaudal and transverse dimensions. This is well seen on image 76 of series 601 and on image 70 of series 2. This appears to represent a perirectal abscess. There is some surrounding inflammatory reaction present. IMPRESSION: 4.2 x 3.2 cm inferior, posterior perirectal abscess. Extensive diverticulosis without evidence of diverticulitis. Reviewed, Interpreted and Dictated by Ayan Hammer MD Transcribed by Elizabeth Wilburn Authenticated by Ayan Hammer MD on 08/26/2021 12:50:43 PM [facility]
[2021-08-26 14:59] LABS: MANUAL DIFFERENTIAL MANUAL DIFFERENTIAL (MANUAL DIFF)
[2021-08-26 15:09] LABS: Basophils # 0.1 K/mm3 (0-0.2); Basophils % 0.5 % (0.1-2.0); Eosinophils # 0.1 K/mm3 (0.0-0.4); Eosinophils % 0.4 % (0.1-12.0); Hematocrit 42.7 % (42.0-52.0); Hemoglobin 14.4 g/dL (14.1-18.0); Lymphocytes # 1.4 K/mm3 (0.7-4.5); Lymphocytes % 10.5 % (10-50); Mean Corpuscular HGB Conc 33.7 g/dL (31.8-35.4); Mean Corpuscular Hemoglobin 30.7 pg (27.0-31.2); Mean Corpuscular Volume 91.1 fl (80-94); Mean Platelet Volume 8.3 fl (7.4-10.4); Monocytes % 7.8 % (1.7-9.3); Neutrophils # 10.4 K/mm3 (1.8-7.8); Neutrophils % 80.8 % (37.0-80.0); Platelet Count 305 K/mm3 (142-424); Red Blood Count 4.68 M/mm3 (4.60-6.20); Red Cell Distribution Width 13.1 % (11.5-17.5); White Blood Count 12.9 K/mm3 (4.8-10.8)
[2021-08-26 15:24] LABS: Anion Gap 12.8 mEq/L (5-15); Blood Urea Nitrogen 14 mg/dl (9-20); Calcium 8.5 mg/dl (8.4-10.2); Carbon Dioxide 28 mmol/L (22.0-30.0); Chloride 97 mmol/L (98-107); Estimated Glomerular Filt Rate 136 ml/min (>60); GFR (African American) 165 ML/MIN (>60); Glucose 103 mg/dl (74-100); Potassium 3.8 mmoL/L (3.5-5.1); Sodium 134 mmol/L (136-145)
[2021-08-26 16:00] LABS: Lymphocytes % 21 % (10-50); Monocytes % 4 % (2-9); Neutrophils % 73 % (42-76); Platelet Estimate Normal; RBC Morphology Normal; Total Cells Counted 100
== END ==
PROVIDERS: Surgery; PCP Family Medicine; Visit Provider Family Medicine
DX: K61.1 Rectal abscess (principal); Z98.890 Other specified postprocedural states
CPT/HCPCS: 36415; 72193; 80048; 82565; 84520; 85007; 85014; 85018; 85048; 85049; Q9967

== ENCOUNTER 2021-08-26 14:13 | Day surgery (SDC) | payer BC, SELFPAY ==
[2021-08-26] VITALS (10 sets, daily range): BP systolic 101–125; BP diastolic 59–75; PULSE 80–88; RESP 16–24; TEMP 6.1–43; O2SAT 92–97; BMI 33.9
[2021-08-26 14:32] LABS: Coronavirus 19, PCR Not Detected (NotDetected); Influenza A, PCR Not Detected (NotDetected); Influenza B, PCR Not Detected (NotDetected)
--- NOTE | 2021-08-26 16:02 | P.OP_ITS ---
Date of procedure: 08/26/21 Pre-op Diagnosis:: Perirectal abscess Post-op Diagnosis:: Same Procedure performed:: Transanal incision and drainage of perirectal abscess Surgeon:: Kane Martin MD SALES OPERATIONS DIRECTOR:: Sushant Yee Anesthesia: LMA Estimated blood loss (mL): 20 Clinical Note:: Patient is a pleasant 65-year-old male whom I have seen in the past for in carcerated umbilical hernia. He was in his usual state of health until he states about 1 week ago at which time he had developed some anal pain. He was seen in his primary care provider's office and examination was relatively unremarkable. Possible fissure was considered. He was prescribed ointment. However, his symptoms have persisted and progressed. He was seen in the office yesterday and it was felt that this may be an abscess. He was started on levofloxacin and metronidazole and given some pain medication. He was scheduled for CT scan today which reveals findings of 4.2 x 3.2 cm posterior perirectal abscess. He was sent for urgent outpatient surgical evaluation. Patient was found to have significant pain and discomfort. He had some erythema and induration in the left posterior lateral location but no evidence of any fluctuance. CT scan was reviewed. Plan was made for incision and drainage of perirectal abscess. Operative findings:: Patient had likely super sphincteric perirectal abscess which was draining internally minimally. Operative note:: Patient was taken to the operating room. He was given preoperative intravenous antibiotics. In the operating room he was placed in a supine position. General anesthesia was induced via LMA. He was repositioned in modified lithotomy position. Perianal region was prepped and draped in the standard surgical fashion. He had some erythema and induration in the left posterior lateral location but no fluctuance. Please note that during prepping and draping there was noted to be some thick pus oozing from the anal canal. [place] anoscope was inserted. In the left posterior lateral location internally there was a small opening draining copious amounts of pus. This was sent for culture. The opening was probed with a blunt probe. This tracked into the abscess cavity. Minimal digital pressure overlying the opening resulted in this opening with a large amount of pus exuding from the wound. Any loculations were broken free. The wound was thoroughly irrigated. Pressure was held for hemostasis for several minutes. Local anesthetic was infiltrated into the surrounding tissues as well as a Gelfoam roll soaked in local anesthetic for hemostasis and topical anesthetic purposes and inserted into the anorectal vault. Absorbent pad was applied. Patient tolerated procedure well with no immediate complications. Condition: stable Disposition: PACU Specimens:: Cultures sent Complications:: None immediately apparent
--- NOTE | 2021-08-26 16:08 | P.PN_ITS ---
[facility] Anesthesia Checklist - Patient Identification Patient Identification: Arm Band - Structural Data Admitted From: Home Planned Operative Procedure/s: I&D Perirectal Abscess Consent for Planned Operative Procedure(s) Verified: Yes Verified Documents: Surgical Consent, History and Physical - NPO Status Verified Time NPO: 00:00 - Additional verifications Anesthesia Reactions: No Hx Blood Transfusions: No Blood Transfusion Reaction: No - Airway Assessment C-Spine Mobility Assessed: Yes (mp2) TMJ Mobility Assessed: Yes Dentition: Good Dentition - Neurological Assessment Level of Consciousness: Awake, Alert - Anesthesia Plan Anesthesia Risk discussed: Yes Anesthesia Plan: Verified ASA Class: II Anesthesia Type: General [facility] History I have reviewed the patient's past medical history: Yes Medical History: Reports:: Asthma, Gastroesophageal Reflux Disease(GERD), Hyperlipidemia, Hypertension Denies:: Cancer, Diabetes Mellitus Type 1, Diabetes Mellitus Type 2, Internal Pacemaker, MRSA, Seizures *Have you ever received a pneumonia vaccine?: Yes *Have you received a flu vaccine this season?: Yes Other Medical History: Reports: Arthritis, Cataracts. Denies: Blood Transfusion Reaction Anesthesia experience/problems:: nac Laterality Cases: Bilateral: Tonsillectomy, Other Other Surgeries: Yes: Cardiac Catheterization, Colonoscopy, Colon Resection, Hernia Repair. No: Pacemaker Amputation: No Fractures: No - *Social History Last grade of school completed: Some college Smoking Status: Never smoker Alcohol Intake: never Alcohol Intake Frequency:: holidays/special occasions only Substance Use Type: denies use *Occupational Status:: retired Housing: house Household Members: spouse *Travel in the last 8 weeks: None Family Hx:: Unable to obtain
--- NOTE | 2021-08-26 16:09 | P.PN_ITS ---
[facility] Anesthesia Record Part I Intake, IV Amount: 600 Estimated blood loss (mL): 10 Urine output (mL): 0 Blood Pressure: 108/59 SaO2: 92 Pulse Rate: 83 Respiratory Rate: 16 Temperature: 99.4 F Patient is:: Drowsy, Stable Stable to PACU at:: 16:00
--- NOTE | 2021-08-26 16:37 | SUR.PHASEI ---
1627 detailed report given to Sakina Barrera RN 1630 Pt transported via stretcher to post op. Pt stable and left in care of Sakina Barrera RN at bedside.
--- NOTE | 2021-08-26 17:00 | SUR.PHASEII ---
pt educated on use of sitz bath, this was sent home w/ patient. DC papework reviewed, pt and spouse verbalized understanding. clinic closed @ this time, pt's aware that he will need a follow-up w/ dr. andrade on 08/28. clinic phone # provided on DC paperwork.
[2021-08-27 06:38] VITALS: BP 119/69; PULSE 80; TEMP 37.2
--- NOTE | 2021-08-27 06:38 | P.PN_ITS ---
[facility] Anesthesia Record Part II Discharge Time: 16:30 Destination: Surgical Day Care (OP Surgery) PACU nurse assessment reviewed?: Yes Patient Condition:: Good Anesthesia Complications:: None Swallowing reflex intact?: Yes Cyanosis?: No Blood Pressure: 119/69 Pulse Rate: 80 Temperature: 99 F Mental Status: Alert & Oriented Pain level:: 0 Nausea and/or vomitting:: None Intake, IV Amount: 0
== END 2021-08-26 17:05 | disposition home or self-care (01) ==
LOC: OR 14:15
PROVIDERS: PCP Family Medicine; Visit Provider Surgery
PROC: (CPT 46040; principal; 2021-08-26 14:30)
DX: K61.1 Rectal abscess (principal); J45.909 Unspecified asthma, uncomplicated; K21.9 Gastro-esophageal reflux disease without esophagitis; E78.5 Hyperlipidemia, unspecified; I10 Essential (primary) hypertension; M19.90 Unspecified osteoarthritis, unspecified site
CPT/HCPCS: 46040; 87070; 87075; 87077; 87186; 87205; 96374; C9803; J2405; U0003; U0005

== ENCOUNTER → 2021-09-01 16:09 | Outpatient (CLI) | payer BC, SELFPAY ==
[2021-09-01 17:20] LABS: Basophils # 0.1 K/mm3 (0-0.2); Basophils % 0.8 % (0.1-2.0); Eosinophils # 0.6 K/mm3 (0.0-0.4); Eosinophils % 5.6 % (0.1-12.0); Hematocrit 44.3 % (42.0-52.0); Hemoglobin 14.3 g/dL (14.1-18.0); Lymphocytes # 1.8 K/mm3 (0.7-4.5); Lymphocytes % 16.6 % (10-50); Mean Corpuscular HGB Conc 32.3 g/dL (31.8-35.4); Mean Corpuscular Hemoglobin 30.5 pg (27.0-31.2); Mean Corpuscular Volume 94.3 fl (80-94); Mean Platelet Volume 8.5 fl (7.4-10.4); Monocytes # 0.5 K/mm3 (0.1-1.0); Monocytes % 4.7 % (1.7-9.3); Neutrophils # 7.6 K/mm3 (1.8-7.8); Neutrophils % 72.2 % (37.0-80.0); Platelet Count 338 K/mm3 (142-424); Red Cell Distribution Width 13.3 % (11.5-17.5); White Blood Count 10.5 K/mm3 (4.8-10.8)
[2021-09-10 06:17] LABS: D001-IgE D pteronyssinus <0.10 kU/L (Class 0); D002-IgE D farinae <0.10 kU/L (Class 0); E001-IgE Cat Dander <0.10 kU/L (Class 0); E005-IgE Dog Dander <0.10 kU/L (Class 0); E072-IgE Mouse Urine <0.10 kU/L (Class 0); G002-IgE Bermuda Grass <0.10 kU/L (Class 0); G006-IgE Timothy Grass <0.10 kU/L (Class 0); I006-IgE Cockroach, German <0.10 kU/L (Class 0); Immunoglobulin E, Total 295 IU/mL (6-495); M001-IgE Penicillium chrysogen <0.10 kU/L (Class 0); M002-IgE Cladosporium herbarum <0.10 kU/L (Class 0); M003-IgE Aspergillus fumigatus <0.10 kU/L (Class 0); M006-IgE Alternaria alternata <0.10 kU/L (Class 0); T003-IgE Common Silver Birch <0.10 kU/L (Class 0); T006-IgE Cedar, Mountain <0.10 kU/L (Class 0); T007-IgE Oak, White <0.10 kU/L (Class 0); T008-IgE Elm, American <0.10 kU/L (Class 0); T010-IgE Walnut <0.10 kU/L (Class 0); T011-IgE Maple Leaf Sycamore <0.10 kU/L (Class 0); T014-IgE Cottonwood <0.10 kU/L (Class 0); T015-IgE Ash, White 0.29 kU/L (Class 0/I); T022-IgE Pecan, Hickory <0.10 kU/L (Class 0); T070-IgE White Mulberry <0.10 kU/L (Class 0); W001-IgE Ragweed, Short <0.10 kU/L (Class 0); W011-IgE Thistle, Russian <0.10 kU/L (Class 0); W014-IgE Pigweed, Common <0.10 kU/L (Class 0); W018-IgE Sheep Sorrel <0.10 kU/L (Class 0)
== END ==
PROVIDERS: Visit Provider Internal Medicine Pulmonary Disease
DX: J45.909 Unspecified asthma, uncomplicated (principal)
CPT/HCPCS: 36415; 82785; 85025; 86003

== ENCOUNTER → 2021-11-04 13:30 | Outpatient (CLI) | payer BC, SELFPAY ==
--- NOTE | 2021-11-04 13:33 | XR_ITS ---
FINAL REPORT CLINICAL HISTORY: PAIN IN RIGHT SHOULDER, INJURY 30 YEARS AGO, PAIN WITH MOTION FINDINGS: RIGHT SHOULDER: Three views of the right shoulder were obtained. There is no acute fracture or dislocation. There is mild acromioclavicular joint degenerative change. There is moderate glenohumeral joint degenerative change. There are calcifications adjacent to the proximal humerus measuring up to 6 mm of uncertain etiology but could represent loose bodies. IMPRESSION: Mild and moderate degenerative changes with questionable loose bodies. Reviewed, Interpreted and Dictated by Kane Bazan III, MD Transcribed by Saadia John Authenticated and [facility]
== END ==
PROVIDERS: PCP Family Medicine; Visit Provider Family Medicine
DX: M25.511 Pain in right shoulder (principal)
CPT/HCPCS: 73030

== ENCOUNTER → 2021-12-31 13:58 | Outpatient (CLI) | payer BC, SELFPAY | PROVIDERS: PCP Family Medicine; Visit Provider Surgery | DX: Z01.812 Encounter for preprocedural laboratory examination (principal); Z20.822 Contact with and (suspected) exposure to COVID-19; Z12.11 Encounter for screening for malignant neoplasm of colon | CPT/HCPCS: C9803; U0003; U0005 ==

== ENCOUNTER 2022-01-02 06:27 | Day surgery (SDC) | payer BC, SELFPAY ==
[2021-12-30 12:00] VITALS: BMI 33.9
[2022-01-02] VITALS (7 sets, daily range): BP systolic 109–132; BP diastolic 68–88; PULSE 66–79; RESP 14–18; TEMP 36.5–36.6; O2SAT 92–98
--- NOTE | 2022-01-02 07:21 | HMH.ANESCL ---
[facility] Anesthesia Checklist - Patient Identification Patient Identification: Arm Band - Structural Data Admitted From: Home Planned Operative Procedure/s: colonoscopy Consent for Planned Operative Procedure(s) Verified: Yes Verified Documents: Surgical Consent, History and Physical - NPO Status Verified Time NPO: 00:00 - Additional verifications Anesthesia Reactions: No Hx Blood Transfusions: No Blood Transfusion Reaction: No - Airway Assessment C-Spine Mobility Assessed: Yes (mp2) TMJ Mobility Assessed: Yes Dentition: Good Dentition - Neurological Assessment Level of Consciousness: Awake, Alert - Anesthesia Plan Anesthesia Risk discussed: Yes Anesthesia Plan: Verified ASA Class: II Anesthesia Type: General [facility] History I have reviewed the patient's past medical history: Yes Medical History: Reports:: Asthma, Gastroesophageal Reflux Disease(GERD), Hyperlipidemia, Hypertension Denies:: Cancer, Diabetes Mellitus Type 1, Diabetes Mellitus Type 2, Internal Pacemaker, MRSA, Seizures *Have you ever received a pneumonia vaccine?: Yes *Have you received a flu vaccine this season?: Yes Other Medical History: Reports: Arthritis, Cataracts. Denies: Blood Transfusion Reaction Anesthesia experience/problems:: nac Laterality Cases: Bilateral: Tonsillectomy, Other Other Surgeries: Yes: Cardiac Catheterization, Colonoscopy, Colon Resection, Hernia Repair. No: Pacemaker Amputation: No Fractures: No - *Social History Last grade of school completed: Some college Smoking Status: Never smoker Alcohol Intake: current Alcohol Intake Frequency:: a few times a week Substance Use Type: denies use *Occupational Status:: retired Housing: house Household Members: spouse *Travel in the last 8 weeks: None Family Hx:: Unable to obtain
--- NOTE | 2022-01-02 08:13 | HMH.SCOPE ---
- Procedure: Date: 01/02/22 Patient Date of :: 1955 Procedure Performed:: Total colonoscopy with polypectomy using snare and biopsy Indications:: Patient is a 66-year-old male who presents for screening colonoscopy. He had initial screening colonoscopy about 10 or 11 years ago. Patient had relatively recently had perirectal abscess drained transanally. Performing Provider:: Kane Martin MD Referring Provider:: Messi Soto MD Sedation:: MAC sedation Procedure:: Patient was taken to endoscopy procedure room. He was positioned in lateral decubitus position. Adequate intravenous sedation was achieved with anesthesia titration propofol. Digital examination was performed which was unremarkable. Variable stiffness Olympus colonoscope was inserted via the anus. It was advanced to the cecum. He did have some redundancy of the sigmoid colon. Ileocecal valve and appendiceal orifice were identified. Colonic preparation was good although there was some particular liquid stool and several scattered stool balls . For the most part this was able to be cleared. Appendiceal orifice and ileocecal valve were clearly identified. There is a small polyp in the cecum which appeared adenomatous removed with cold cutting snare. In the periappendiceal location there was a subtle possible tiny polyp removed with biopsy forceps. Descending colon there was a possible polyp versus lymphoid aggregate removed with biopsy forceps. In the proximal rectum there was a adenomatous appearing polyp removed with cold snare. Distal rectum there was a small polyp removed with cold snare with residual polyp removed with biopsy forceps. Retroflexion within the rectum revealed no evidence of any pathologic internal hemorrhoids. Please note that he had significant pandiverticulosis most pronounced in the sigmoid colon. Several diverticuli were impacted with stool. Findings:: Significant pandiverticulosis Polyps as noted above Recommendations:: Follow-up colonoscopy pending pathology. Likely 3 to 5 years Complications:: None immediately apparent Estimated blood obtained (mL): 2
== END 2022-01-02 08:54 | disposition home or self-care (01) ==
LOC: OUTP 06:28
PROVIDERS: PCP Family Medicine; Visit Provider Surgery
PROC: 0DJD8ZZ Inspection of Lower Intestinal Tract, Via Natural or Artificial Opening Endoscopic (ICD-10-PCS; CPT 45380; principal; 2022-01-02 07:30)
DX: Z12.11 Encounter for screening for malignant neoplasm of colon (principal); K63.5 Polyp of colon; K21.9 Gastro-esophageal reflux disease without esophagitis; E78.5 Hyperlipidemia, unspecified; I10 Essential (primary) hypertension; Z79.899 Other long term (current) drug therapy
CPT/HCPCS: 45380; 45385; J2704

== ENCOUNTER → 2022-05-12 15:57 | Outpatient (CLI) | payer BC, OTHER, SELFPAY ==
--- NOTE | 2022-05-12 16:03 | XR_ITS ---
FINAL REPORT CLINICAL HISTORY: SOB COMPARISON: August 28, 2019 FINDINGS: Two views of the chest were obtained. The heart size and pulmonary vascularity are within normal limits. The mediastinum is normal. No acute pulmonary abnormality is identified. There is no pneumothorax. The bony thorax is intact. IMPRESSION: No active cardiopulmonary disease. Reviewed, Interpreted and Dictated by Kane Bazan III, MD Transcribed by Elizabeth Wilburn Authenticated and [facility]
== END ==
PROVIDERS: PCP Family Medicine; Visit Provider Internal Medicine Pulmonary Disease
DX: R06.02 Shortness of breath (principal)
CPT/HCPCS: 71046

== ENCOUNTER 2022-08-14 10:19 | Day surgery (SDC) | payer BC, OTHER, SELFPAY ==
[2022-08-12 12:54] VITALS: BMI 34.5
[2022-08-14 10:36] VITALS: BP 143/98; PULSE 75; RESP 18; TEMP 36.8; O2SAT 94
[2022-08-14 11:53] VITALS: O2SAT 97
--- NOTE | 2022-08-14 12:05 | P.PCN_ITS ---
Procedure: Date: 08/14/22 Patient Date of :: 1955 Procedure Performed:: Limited flexible sigmoidoscopy Indications:: Patient is a 66-year-old male who is an established patient of mine.? He is a self-referral due to passing blood .? I had previously performed colonoscopy on him on 01/02/2022.? He did have some diverticuli.? He had a couple of tubular adenomas and hyperplastic polyps.? He describes recently over the past couple of months of passage of what appears to be dilute blood.? This often occurs spontaneously after he exerts himself.? He has some irritation described as a raw sensation at the anal area but no significant pain. He has had some itching Performing Provider:: Kane Martin MD Referring Provider:: Messi Soto MD Sedation:: MAC sedation Procedure:: Consent was obtained patient was taken to endoscopy procedure room. He was positioned in lateral decubitus position. Adequate intravenous sedation was achieved with anesthesia titration propofol. Digital examination was performed. Olympus endoscope was inserted via the anus. There was noted to be significant solid stool at the rectosigmoid. Colonoscope could not be advanced proximal to this. Retroflexion revealed no evidence of any appreciable internal hemorrhoids. Careful inspection was carried out of the anorectal region. There is an area of some minor excoriation. There were no internal hemorrhoids am enable to banding. Endoscope was withdrawn. Findings:: Intra-anal hemorrhoid excoriation Recommendations:: I will place him on topical therapy. If he continues to have some rectal bleeding could require bowel prep and repeat colonoscopy Complications:: None immediately apparent Estimated blood obtained (mL): 0
[2022-08-14 12:07] VITALS: BP 114/67; PULSE 72; RESP 18; TEMP 36.2; O2SAT 96
[2022-08-14 12:17] VITALS: BP 90/64; PULSE 63; RESP 17; TEMP 36.2; O2SAT 94
[2022-08-14 12:27] VITALS: BP 101/67; PULSE 71; RESP 18; TEMP 36.6; O2SAT 96
[2022-08-14 12:37] VITALS: BP 143/89; PULSE 68; RESP 19; TEMP 36.8; O2SAT 95
== END 2022-08-14 12:50 | disposition home or self-care (01) ==
PROVIDERS: PCP Family Medicine; Visit Provider Surgery
PROC: 0DJD8ZZ Inspection of Lower Intestinal Tract, Via Natural or Artificial Opening Endoscopic (ICD-10-PCS; CPT 45330; principal; 2022-08-14 11:30)
DX: K62.5 Hemorrhage of anus and rectum (principal); K64.8 Other hemorrhoids; Z79.899 Other long term (current) drug therapy
CPT/HCPCS: 45330

== ENCOUNTER 2022-09-03 14:00 | Outpatient (RCR) | payer BC, OTHER, SELFPAY | END 2022-09-03 15:10 | disposition home or self-care (01) | LOC: OT 14:00 | PROVIDERS: PCP Family Medicine; Visit Provider Nurse Practitioner Family | DX: M19.011 Primary osteoarthritis, right shoulder (principal) | CPT/HCPCS: 97010; 97014; 97033; 97110; 97140; 97164; 97166; 97530; G0283 ==

== ENCOUNTER → 2022-09-08 13:32 | Outpatient (POV) | payer BC, OTHER, SELFPAY | PROVIDERS: Visit Provider Dermatology | DX: Z00.00 Encounter for general adult medical examination without abnormal findings (principal) ==

== ENCOUNTER 2023-08-26 14:00 | Outpatient (RCR) | payer MEDICARE, OTHER, SELFPAY | END 2023-08-26 14:05 | disposition home or self-care (01) | LOC: OT 14:00 | PROVIDERS: PCP Family Medicine; Visit Provider Physician Assistant Medical | DX: M25.511 Pain in right shoulder (principal); Z96.611 Presence of right artificial shoulder joint; Z98.890 Other specified postprocedural states | CPT/HCPCS: 97010; 97014; 97110; 97140; 97164; 97166; 97530; G0283 ==

== ENCOUNTER 2024-05-19 08:26 | Outpatient (CLI) | payer MEDICARE, OTHER, SELFPAY ==
--- NOTE | 2024-05-19 | CT_ITS ---
FINAL REPORT CLINICAL HISTORY: RECTAL PAIN COMPARISON: 08/26/2021 FINDINGS: Axial images through the pelvis were performed by computed tomography after the administration of IV and oral contrast. Sagittal and coronal reconstruction images were performed. This study was performed with techniques to keep radiation doses as low as reasonably achievable (ALARA). Individualized dose reduction techniques using automated exposure control or adjustment of mA and/or kV according to the patient's size were employed. No acute GI tract abnormality is identified. The appendix is normal. There is diverticulosis of the distal colon with no evidence of diverticulitis. The rectum does not appear thickened. Previously seen perirectal inflammation has resolved. The urinary bladder and prostate are unremarkable. There is no adenopathy or free fluid. Previously seen Preet rectal abscess has resolved. There is no evidence of current perirectal or perianal abnormality. IMPRESSION: No acute process. Reviewed, Interpreted and Dictated by Eden Lenz MD Transcribed by Sandie Goldsmith Authenticated and [facility]
[2024-05-19] MEDS: SODIUM CHLORIDE 0.9% 10ML SYR (RAD ONLY) 10 ML IV (09:01)
[2024-05-19] MEDS: IOPAMIDOL-370 (76%);100ML BOTTLE 75 ML IV (09:01)
[2024-05-19] MEDS: BARIUM SULFATE(READI-CAT2);450ML BOTTLE 450 ML PO (09:01)
== END 2024-05-19 23:59 | disposition home or self-care (01) ==
LOC: RAD 08:28
PROVIDERS: PCP Family Medicine; Visit Provider Family Medicine
DX: K62.89 Other specified diseases of anus and rectum (principal)
CPT/HCPCS: 72193; Q9967

== ENCOUNTER 2024-09-13 15:18 | Outpatient (CLI) | payer MEDICARE, OTHER, SELFPAY ==
--- NOTE | 2024-09-13 15:21 | XR_ITS ---
FINAL REPORT CLINICAL HISTORY: PAIN, swelling x5 days no injury COMPARISON: None FINDINGS: LEFT WRIST Three views demonstrate no acute fracture or dislocation. The carpal lunate has an abnormal appearance and appears to be fragmented. There is a small ossific density in the radiocarpal joint space. The visualized joint spaces are normally aligned. The soft tissues are unremarkable. 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 MRI may be of value. Reviewed, Interpreted and Dictated by Ayan Hammer MD Transcribed by June Dietrich Authenticated and [facility]
--- OUTSIDE RECORDS SUMMARY | 2024-09-13 15:21 | XMS_ITS ---
Author Organization Unknown TREATMENT PLAN [facility] Start Date Provider Encounter for Check-up [id number] [facility]
--- OUTSIDE RECORDS SUMMARY | 2024-09-13 15:21 | XMS_ITS | Data Portability ---
Author Organization [facility] ClinNAYAN mckenzieS [facility] Address [address] [facility] [address] [place] [address] Care Team Providers Care Neck Band Maker Name Role Phone NATHENANDRAEYAHIR Primary Care Provider Assessment No assessment recorded. Plan of Treatment Reminders Order Date Submit Date Provider Last Modified By Organization Details Last Modified Time Details Appointments None recorded. Lab None recorded. Referral None recorded. Procedures None recorded. Surgeries None recorded. Imaging electrocard iogram 2017 018 [email or web address], [facility], [place], [address], 8 11:26:16 electrocard iogram 2016 [email or web address], [facility], [place], [address], 7 08:29:17 Medication Orders None recorded. Patient TargetsNo targets recorded. Patient Instructions Encounter Date Encounter Id Patient Instructions Last Modified By Organization Details Last Modified Time 02/08/2017 [id number] chest pain: care instructions REBECCA Not available 02/10/2017 18:25:13 RTC: 1 year with EKG. [email or web address] Not available 02/08/2017 16:53:38 Reason for Referral None Reported. Results Created Date Observation Date Name Description Value Unit Range Abnormal Flag Note LastModifiedBy Organization Detail LastModifiedTime 02/10/20 17 02/08/2017 elect leeroy dwyergr am No observ ation record ed. BARCODE [address] [facility], [place], [address], 02/09/2017 15:20:37 03/08/20 18 03/07/2018 darien cobian am No observ ation record ed. [email or web address] [facility] Cardiology [address], [place], [address], 03/08/2018 09:47:19 Result Notes None recorded. Problems Name Problem SNOMED Code Status Onset Date Resolution Date Notes Provider Name and Address Organization Details Recorded Time Chest pain 48790319 Active 016 From Automated Load;Provi niels: Yuli Chamorro;Statu s: Active Not Available [facility] 6 09:07:15 Right bundle branch block 16077463 Active 016 From Automated Load;Provi niels: Yuli Chamorro;Statu s: Active Not Available [facility] 09:07:15 Problem Notes None recorded. Procedures Surgical History Date Name Laterality Status Provider Name and Address Organization Details Recorded Time Cardiac Catheterization completed YULI CHAMORRO MD [address] [place] [address], [phone], [facility] 02/07/2017 14:40:22 Remove tonsils and adenoids completed YULI CHAMORRO MD [address] [place] [address], [phone], [facility] 02/07/2017 14:40:44 Hernia repair w/mesh completed YULI CHAMORRO MD [address] [place] [address], [phone], [facility] 02/07/2017 14:40:54 Imaging Results Imaging Date Name Status LastModified by Organization Details LastModified Time 02/08/2017 electrocardiogram completed BARCODE [facility] [address], [place], [address], 02/09/2017 15:20:37 03/07/2018 electrocardiogram completed [email or web address] [facility] Cardiology [address], [place], [address], 03/08/2018 09:47:19 Procedure Notes None recorded. Medical Equipment None Reported. Allergies No known drug allergies Medications Name Sig Start Date Stop Date Status Note LastModified by Organization Details LastModified Time Multiple Vitamin capsule Daily active Duration : 30 days;Eric quency: daily;Me dication Descript ion: multivit hammonds; Dosage:1 ; Route:or al; refills: 3; Quantity :100 capsule Not Available Not Available Not Available Carafate 1 gram tablet Two times a day 03/07 completed Duration : 30 days;Eric quency: bid;Alt Frequenc y: as direct.; Medicati on Descript ion: sucralfa te; Dosage:1 ; Route:or al; refills: 0; Quantity :120 tablet Not Available Not Available Not Available Nexium 40 mg capsule,d elayed release Daily 03/07 completed Frequenc y: daily;Me dication Descript ion: esomepra zole; Dosage:1 ; Route:or al; refills: 0; Quantity :30 enteric coated capsule Not Available Not Available Not Available Celebrex 200 mg capsule Daily active Duration : 30 days;Eric quency: daily;Me dication Descript ion: celecoxi b; Dosage:1 ; Route:or al; refills: 0; Quantity :30 capsule Not Available Not Available Not Available potassium 99 mg tablet Daily active Frequenc y: daily;Me dication Descript ion: potassiu m OTC; Dosage:1 ; Route:or al; refills: 0 Not Available Not Available Not Available lisinopri l 10 mg tablet Daily active Frequenc y: daily;Me dication Descript ion: lisinopr il; Dosage:1 ; Route:or al; refills: 4; Quantity :90 tablet Not Available Not Available Not Available omeprazol e 20 mg capsule,d elayed release Daily active Frequenc y: daily;Me dication Descript ion: omeprazo le; Dosage:1 ; Route:or al; refills: 0 Not Available Not Available Not Available monteluka st 10 mg tablet Take 1 tablet every day by oral route. active Not Available Not Available No t Available aspirin 81 mg tablet Daily active Duration : 30 days;Eric quency: daily;Me dication Descript ion: aspirin; Dosage:1 ; Route:or al; refills: 0; Quantity :30 Not Available Not Available Not Available hydrochlo rothiazid e 25 mg tablet Daily active Duration : 10 days;Eric quency: daily;Me dication Descript ion: hydrochl orothiaz марина; Dosage:1 ; Route:or al; refills: 0; Quantity :30 tablet Not Available Not Available Not Available Ventolin HFA 90 mcg/actua tion aerosol inhaler Inhale 2 puffs every 4 hours by inhalati on route. active Not Available Not Available No t Available Zantac Maximum Strength 150 mg tablet Two times a day active Duration : 10 days;Eric quency: bid;Medi cation Descript ion: ranitidi ne; Dosage:2 ; Route:or al; refills: 0; Quantity :84 tablet Not Available Not Available Not Available loratadin e Daily 03/07 completed Frequenc y: daily;Me dication Descript ion: loratadi ne; Route:or al; refills: 0 Not Available Not Available Not Available Fish Oil Bedtime active Frequenc y: hs;Medic ation Descript ion: omega-3 polyunsa turated fatty acids; Dosage:2 ; Route:or al; refills: 0 Not Available Not Available Not Available Symbicort 160 mcg-4.5 mcg/actua tion HFA aerosol inhaler Two times a day 03/07 completed Frequenc y: bid;Medi cation Descript ion: budesoni de-formo terol; Route:in halation ; refills: 0 Not Available Not Available Not Available Osteo Bi-Flex active Medicati on Descript ion: miscella neous; Dosage:a s directed ; refills: 0 Not Available Not Available Not Available Dymista 137 mcg-50 mcg/spray nasal spray Two times a day active Frequenc y: bid;Alt Frequenc y: prn;Medi cation Descript ion: azelasti ne-fluti casone nasal; Route:na pipe; refills: 0 Not Available Not Available Not Available Vitals Date Recorded Body height Body mass index (BMI) Body weight Heart rate Systolic blood pressure Diastolic blood pressure Provider Name and Address Organization Details Last Updated DateTime 7 182.88 cm 32.8 kg/m2 358291. 35 g 61 /min 128 mm[Hg] 82 mm[Hg] Jayde Antunez [facility] 7 14:32:44 Date Recorded Body height Heart rate Systolic blood pressure Diastolic blood pressure Provider Name and Address Organization Details Last Updated DateTime 03/07/2018 182.88 cm 63 /min 140 mm[Hg] 86 mm[Hg] Pamela Portillo [facility] 03/07/2018 10:15:37 Social History Question Answer Notes LastModified by Organizat ion Details LastModified Time Tobacco Smoking Status Former Smoker YULI CHAMORRO MD [address] [place] [address], [phone], [facility] 02/07/2017 14:38:22 What Is Your Level Of Alcohol Consumption? 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 03/07/2018 [id number] Information not available 07/04/2019 How Many Children Do You Have? 4 Information not available 02/07/2017 Sex: Unknown Functional Status None recorded. Mental Status None recorded. Family History Relationship Description Onset Age of this Age Resolved Age Notes LastModified by Organization Details LastModified Time Unspecified Relation Malignant neoplastic disease [email or web address] Not available 2016 14:37:13 Unspecified Relation Heart disease [email or web address] Not available 2016 14:37:24 Unspecified Relation Hypertensive disorder [email or web address] Not available 2016 14:37:35 Unspecified Relation Kidney disease jsartini Not available 2016 14:37:43 Unspecified Relation Tuberculosis [email or web address] Not available 14:37:52 Medical History Condition Response Ulcers Lung Disease Y Implanted Cardiac Device Y GERD/Reflux Y Past Encounters Encounter ID Performer Location Encounter Start Date Encounter Closed Date Diagnosis/Indication Diagnosis SNOMED-CT Code Diagnosis ICD10 Code Diagnosis Note [id number] YULI CHAMORRO MD CARDIOLOG [address] [place] [address] 02/08/2017 13:35:22 02/09/2017 08:29:16 Right bundle branch block 01751000 I45.0 EKG:RBBB with Left axis deviation. No change from previous. Chest pain 33297547 R07. 9 Patient has chronic noncardiac chest pain confirmed with normal cardiac catheteriz ation studies in the past. [id number] YULI CHAMORRO MD CARDIOLOG Y [address] [place] [address] 03/07/2018 09:59:28 03/07/2018 11:26:15 Right bundle branch block 70935042 I45.0 EKG:RBBB with Left axis deviation. No change from previous. Chest pain 18719537 R07. 9 Symptoms resolved it appears to been related to cervical disease. RTC: When necessary Health Concerns Section Related Observation LastModified by Organization Detai ls LastModified Time None Recorded Concern Status LastModified by Organization Details LastModified Time None Recorded Advance Directives Directive None Recorded Payers Encounter Date Sequence Insurance Name Policy Number Policy Hoffman Covered Member ID Hoffman Member ID Guarantor Name 02/08/2017 1 [place] [employer] ([place]) [id number] [facility] [id number] Jamel Fuentes 03/07/2018 1 [place] [employer] ACCESS ([place]O) [id number] [facility] [id number] Jamel Fuentes Notes Date Note Type Note Provider Name and Address Organization Details Recorded Time 02/08/2017 text/html WM with hyperten melanie and GERD. Previously followed with a power bender operator in [place], Dr. Rojas. He had a cardiac catheterization in August following a stress test. The catheterization study was normal. His last ejection fraction noted on echo and cardiac cath 55%. Echocardiogram was also normal. His Outside EKG shows a right bundle branch block. He is here today for evaluation of recent chest pain. 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 The pain resolved spontaneously. He denied any associated symptoms such as nausea, diaphoresis or shortness of breath. Following that episode he has had some dull aching pain on the left side of his chest as well. He's had no radiation of chest pain.The patient denies typical angina, CHF, dyspnea, palpitations, orthopnea, PND and syncope. YULI CHAMORRO MD [address] [place] [address], [phone], [facility] 02/08/2017 16:54:16 03/07/2018 text/html WM/ hypertension/GERD/RBB B. Previously w Dr. Rojas. Cath in August 2016 p stress test. Cath normal. EF echo and cath 55%. Echo normal. 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 The pain resolved spontaneously, no associated symptoms such as nausea, diaphoresis or shortness of breath. Following that episode he had some dull aching pain on the left side of his chest as well.The patient denies typical angina, CHF, dyspnea, palpitations, orthopnea, PND, syncope. YULI CHAMORRO MD [address] [place] [address], [phone], [facility] 03/07/2018 10:41:06
== END 2024-09-13 23:59 | disposition home or self-care (01) ==
LOC: RAD 15:19
PROVIDERS: PCP Family Medicine; Visit Provider Family Medicine
DX: M25.532 Pain in left wrist (principal)
CPT/HCPCS: 73110

== ENCOUNTER 2025-01-12 07:06 | Day surgery (SDC) | payer MEDICARE, OTHER, SELFPAY ==
[2025-01-10 13:18] VITALS: BMI 34.5
--- NOTE | 2025-01-12 06:13 | P.HP_ITS ---
HPI HPI HPI: Patient presents for follow-up colonoscopy. He is a 69-year-old male who is a well-established patient of mine. He has had episodes of rectal bleeding. I performed colonoscopy on 12/01/2011 at which time he had diverticulosis and findings consistent with mild terminal ileitis. He underwent transanal incision and drainage of perirectal abscess on 08/26/2021. I have performed colonoscopy on 01/02/2022 at which time he had some diverticulosis, a couple of tubular adenomas and some hyperplastic polyps. Due to subjective symptoms of passage of blood I performed endoscopy on 08/14/2022 at which time some significant solid stool was encountered at the rectosigmoid region. No appreciable internal hemorrhoids were noted. Careful inspection was carried out of the anorectal area and there was some excoriation. Recommendations were that if he continued to have rectal bleeding he could require full bowel prep and repeat colonoscopy. He presents for colonoscopy due to history of tubular adenomas on colonoscopy done December 2021, 3 years ago. Patient does describe occasional symptoms of minimal amount of watery looking blood on the toilet paper. . [facility] Disclaimer: The information contained in this section may have been updated after the patient was seen, as this information can be updated by other users. Medical History History of colon polyps Oral mucosal lesion Lesion of lip Enlarged prostate Arthritis Bronchitis Sleep apnea Asthma History of gastroesophageal reflux (GERD) History of diverticulitis History of cataract History of anemia Pneumonia Asthmatic bronchitis Dyspnea on exertion Allergic rhinitis, unspecified Moderate persistent asthma Cough variant asthma Seasonal allergies History of smoking for 2-5 years Surgical History History of right shoulder replacement History of cataract surgery History of surgery H/O umbilical hernia repair History of colonoscopy History of tonsillectomy Family History Sister Breast cancer Other Cancer Social History Smoking Status: Former smoker alcohol intake: current alcohol intake frequency: a few times a week counseling provided: none substance use type: denies use current occupational status: retired Travel in the last 8 weeks?: None household members: spouse housing: house 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 current occupational exposures/hazards: No caffeine: Yes Have you lived/traveled outside US in past 30 days?: No Contact w/someone who lives/traveled outside US past 30 days?: No Exposure to someone with infectious disease in past 14 days?: No Do you have a fever (greater than 100.4 F or 38 C)?: No Have you tested positive for COVID-19?: No Exposed to someone with COVID-19 in past 14 days?: No Do you have a sore throat?: No Do you have a cough?: No Do you have any weakness?: No Do you have any diarrhea?: No Are you experiencing any unusual bleeding?: No Do you have any muscle aches/pain?: No Do you have any abdominal pain?: No Are you experiencing loss of taste or smell?: No Other Medical History Have you received the Flu Vaccine for this season: Yes Have you received the Pneumonia Vaccine: No Meds Home Medications and Allergies Home Medications ?Medication ?Instructions ?Recorded ?Confirmed ?Type aspirin 81 mg tablet,delayed 81 mg PO DAILY Blood thin ner 08/13/17 01/12/25 History release (Lo-Dose Aspirin) celecoxib 200 mg capsule (Celebrex) 200 mg PO QODHS Ar thritis 90 days 08/13/17 01/12/25 History ##90 esomeprazole magnesium 40 mg 40 mg PO QODHS GERD 90 da ys ##90 08/13/17 01/12/25 History capsule,delayed release (Nexium) montelukast 10 mg tablet 10 mg PO HS allergies 01/12/25 History cxwvwooj-fvh-uwltj acid 0.4 1 each PO DAILY Supplement 12/21/17 01/12/25 History mg-lycopene 300 mcg-lutein 250 mcg tablet omega-3 fatty acids-fish oil 300 2 g PO DAILY Suppleme nt 12/22/17 01/12/25 History mg-1,000 mg capsule atorvastatin 20 mg tablet 20 mg PO HS Cholesterol 01/0301/12/25 History valsartan 320 1 tab PO DAILY blood pressur e 01/23/20 01/12/25 History mg-hydrochlorothiazide 12.5 mg tablet (Diovan HCT) famotidine 40 mg tablet 40 mg PO DAILY PRN Acid Refl ux 06/11/21 01/12/25 History albuterol sulfate 90 mcg/actuation 2 inh inhalation Q6 H PRN shortness 05/12/22 01/12/25 Rx aerosol inhaler of breath or wheezing 90 day s #8.5 grams azelastine 137 mcg-fluticasone 50 1 spray intranasal D [employer]ILY [employer] 08/12/22 01/12/25 History mcg/spray nasal spray tamsulosin 0.4 mg capsule (Flomax) 0.4 mg PO QDAY 10/1601/12/25 History vitamin B12 0.5 mg-folic acid 1 mg 1 tab PO DAILY 12/1601/12/25 History tablet New Prescriptions to Start Prescriptions: Allergies Allergy/AdvReac Type Severity Reaction Status Date / Time No Known Allergies Allergy Verified 01/12/25 07:35 Exam Data for Last 24 hours I & O for Last 24 hours: Intake & Output 01/09/25 01/10/25 01/11/25 01/12/25 11:59 11:59 11:59 11:59 Weight 255 lb Constitutional Constitutional: no acute distress *Routine HEENT Exam Head: Present normocephalic Eye: Present EOMI and PERRL ENT: Present mucous membranes moist *Routine Neck Exam Neck: Present supple; Absent lymphadenopathy *Routine Respiratory Exam Respiratory: Present CTA bilaterally *Routine Cardiovascular Exam Cardiovascular: Present RRR *Routine Abdominal Exam Abdominal: Present soft and normoactive bowel sounds; Absent tenderness *Routine Rectal Exam Rectal:: deferred *Routine Genitalia Exam Genitalia:: deferred *Routine Extremities Exam Extremities: Absent cyanosis, clubbing or edema *Routine Skin Exam Skin: Present warm; Absent rash *Routine Neurological Exam Neurological: Present alert and oriented X3 Assessment and Plan *Assessment and plan (1) Tubular adenoma of colon: Status: Acute Category: Medical Code(s): D12.6 - Benign neoplasm of colon, unspecified Plan Colonoscopy
[2025-01-12 07:36] VITALS: BP 127/67; PULSE 69; RESP 16; TEMP 36.6; O2SAT 96
[2025-01-12] MEDS: LACTATED RINGERS 1000ML 1,000 ML 50 ML IV (07:43)
--- NOTE | 2025-01-12 08:14 | P.PNANES_ITS ---
[facility] Disclaimer: The information contained in this section may have been updated after the patient was seen, as this information can be updated by other users. Medical History History of colon polyps Oral mucosal lesion Lesion of lip Enlarged prostate Arthritis Bronchitis Sleep apnea Asthma History of gastroesophageal reflux (GERD) History of diverticulitis History of cataract History of anemia Pneumonia Asthmatic bronchitis Dyspnea on exertion Allergic rhinitis, unspecified Moderate persistent asthma Cough variant asthma Seasonal allergies History of smoking for 2-5 years Surgical History History of right shoulder replacement History of cataract surgery History of surgery H/O umbilical hernia repair History of colonoscopy History of tonsillectomy Family History Sister Breast cancer Other Cancer Social History Smoking Status: Former smoker alcohol intake: current alcohol intake frequency: a few times a week counseling provided: none substance use type: denies use current occupational status: retired Travel in the last 8 weeks?: None household members: spouse housing: house 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 current occupational exposures/hazards: No caffeine: Yes Have you lived/traveled outside US in past 30 days?: No Contact w/someone who lives/traveled outside US past 30 days?: No Exposure to someone with infectious disease in past 14 days?: No Do you have a fever (greater than 100.4 F or 38 C)?: No Have you tested positive for COVID-19?: No Exposed to someone with COVID-19 in past 14 days?: No Do you have a sore throat?: No Do you have a cough?: No Do you have any weakness?: No Do you have any diarrhea?: No Are you experiencing any unusual bleeding?: No Do you have any muscle aches/pain?: No Do you have any abdominal pain?: No Are you experiencing loss of taste or smell?: No [facility] Anesthesia Checklist Patient Identification Patient Identification: Arm Band and Verbal (Name & ) Structural Data Admitted From: Home Planned Operative Procedure/s: colonoscopy Consent for Planned Operative Procedure(s) Verified: Yes Verified Documents: Surgical Consent NPO Status Verified Time NPO: 00:00 Chart Verification Results Verified: None Additional verifications Anesthesia Reactions: No Hx Blood Transfusions: No Blood Transfusion Reaction: No Airway Assessment Mallampati Score:: Class II C-Spine Mobility Assessed: Yes TMJ Mobility Assessed: Yes Dentition: Good Dentition Neurological Assessment Level of Consciousness: Awake, Alert and Appropriate Hx Seizures: No Numbness or tingling in extremities: No Anesthesia Plan Anesthesia Risk discussed: Yes Anesthesia Plan: Verified ASA Class: II Anesthesia Type: MAC
[2025-01-12 08:32] VITALS: BP 121/71; PULSE 70; RESP 18; TEMP 36.1; O2SAT 95
--- NOTE | 2025-01-12 08:36 | HMH.SCOPE ---
Procedure: Date: 01/12/25 Patient Date of :: 1955 Procedure Performed:: Total colonoscopy to terminal ileum with biopsies and polypectomy . Indications:: Patient presents for follow-up colonoscopy. He is a 69-year-old male who is a well-established patient of mine. He has had episodes of rectal bleeding. I performed colonoscopy on 12/01/2011 at which time he had diverticulosis and findings consistent with mild terminal ileitis. He underwent transanal incision and drainage of perirectal abscess on 08/26/2021. I have performed colonoscopy on 01/02/2022 at which time he had some diverticulosis, a couple of tubular adenomas and some hyperplastic polyps. Due to subjective symptoms of passage of blood I performed endoscopy on 08/14/2022 at which time some significant solid stool was encountered at the rectosigmoid region. No appreciable internal hemorrhoids were noted. Careful inspection was carried out of the anorectal area and there was some excoriation. Recommendations were that if he continued to have rectal bleeding he could require full bowel prep and repeat colonoscopy. He presents for colonoscopy due to history of tubular adenomas on colonoscopy done December 2021, 3 years ago. Patient does describe occasional symptoms of minimal amount of watery looking blood on the toilet paper. . Performing Provider:: Kane Martin MD Referring Provider:: Messi Soto MD . Sedation:: MAC sedation . Procedure:: Patient history was obtained and appropriate physical examination was performed. Patient's medications and allergies were reviewed. Informed consent was obtained after explaining the benefits, alternatives, and risks of the procedure including, but not limited to, bleeding, perforation, missed lesions, and adverse reaction to anesthesia medications. Patient was transported to endoscopy procedure room. Patient was connected to monitoring devices. Throughout the procedure the patient's blood pressure, pulse, and oxygen saturations were monitored continuously. Patient identification and planned procedure were verified by the staff. Patient was positioned in lateral decubitus position. Digital anorectal exam was performed. Variable stiffness Olympus colonoscope was inserted and advanced under direct visualization to the cecum. Adequacy of the colonic preparation was noted. The colonoscope was advanced a short distance into the terminal ileum. The colonoscope was then slowly withdrawn while carefully examining the color, texture, anatomy, and integrity of the mucosoa circumferentially. Within the rectum retroflexion was performed. Colonoscope was then withdrawn. Impression: Colonic preparation was suboptimal. High-volume trans colonoscopic irrigation and suctioning allowed for fair visualization. Terminal ileum appeared normal. He had significant pandiverticulosis throughout the colon. Several diverticuli were impacted with stool. There was patchy erythema consistent with unspecified mild colitis mostly in the left colon. Cold biopsies were obtained in the transverse colon and in the sigmoid colon. There was a somewhat inflamed appearing rectosigmoid polyp removed with cold snare. This could be hyperplastic. There were a couple of hyperplastic appearing rectal polyps removed with biopsy forceps. Retroflexion revealed no evidence of any pathologic internal hemorrhoids. Colonoscope was withdrawn. External anal inspection revealed some indurated granulation tissue in the left lateral location. Thorough inspection was carried out and this area was probed with a cotton-tipped applicator as it appeared as though it could potentially be a perianal or perirectal fistula. However, no definite tract was identified. . Findings:: Suboptimal prep Significant pandiverticulosis Rectosigmoid polyp removed with snare Hyperplastic appearing rectal polyps removed with biopsy forceps Patchy erythema mostly of the left colon, consistent with unspecified mild colitis, biopsied Indurated granulation tissue left perianal region, uncertain pathology, possible fistula . Recommendations:: Follow-up colonoscopy and treatment plan pending biopsies. Regardless may need repeat colonoscopy within 1 to 2 years given suboptimal prep. Repeat colonoscopy needs to be done with maximum prep. However, patient could have potential colitis or inflammatory bowel disease given the findings of nonspecific colitis and the focal area of perianal inflammation/granulation tissue. Could need referral for colorectal surgery consultation. Complications:: None immediately apparent Estimated blood obtained (mL): 1 Colonoscopy Component Colonoscopy Component Was a colonoscopy performed during today's procedure?: Yes Recommended follow up colonoscopy of at least 10 years?: No If no, follow up colonoscopy recommended in ___ years?: See above Reason for not recommending >/= 10 yr follow-up interval?: See above
[2025-01-12 08:42] VITALS: BP 104/68; PULSE 80; RESP 18; TEMP 36.1; O2SAT 97
[2025-01-12 08:52] VITALS: BP 110/64; PULSE 76; RESP 16; TEMP 36.1; O2SAT 96
[2025-01-12 09:02] VITALS: BP 122/62; PULSE 74; RESP 16; TEMP 36.1; O2SAT 96
== END 2025-01-12 09:02 | disposition home or self-care (01) ==
PROVIDERS: PCP Family Medicine; Visit Provider Surgery
PROC: 0DJD8ZZ Inspection of Lower Intestinal Tract, Via Natural or Artificial Opening Endoscopic (ICD-10-PCS; principal; 2025-01-12 08:15)
DX: K63.5 Polyp of colon (principal); K62.1 Rectal polyp; K57.30 Diverticulosis of large intestine without perforation or abscess without bleeding; K21.9 Gastro-esophageal reflux disease without esophagitis; J45.40 Moderate persistent asthma, uncomplicated; N40.0 Benign prostatic hyperplasia without lower urinary tract symptoms; M19.90 Unspecified osteoarthritis, unspecified site; Z87.891 Personal history of nicotine dependence; Z86.0100 Personal history of colon polyps, unspecified; Z98.890 Other specified postprocedural states; Z79.1 Long term (current) use of non-steroidal anti-inflammatories (NSAID); Z79.899 Other long term (current) drug therapy
CPT/HCPCS: 45380; 45385; J2003; J2704; J7120

== ENCOUNTER 2025-02-28 13:55 | Outpatient (CLI) | payer MEDICARE, OTHER, SELFPAY ==
--- OUTSIDE RECORDS SUMMARY | 2024-10-30 09:45 | XMS_ITS ---
Author Organization [facility] Address [address] [place] [id number] Care Team Providers Care Optical Element Coater Name Role Phone Messi Soto Primary Care Provider [phone] Allergies No Known Allergies REASON FOR VISIT [...] days Active CPAP SUPPLIES DIRECTED 08/11/2016 Act onrma Famotidine 40 MG 1 tab(s) orally once [...] once a day Active Vital Signs Weight 258 lbs 10/30/2024 Blood pressure systolic 122 mm Hg 10/31/19 25 Blood pressure diastolic 78 mm Hg 025 Heart Rate 70 /min 10/30/2024 Height 72.50 in 10/30/2024 BMI 34.51 kg/m2 10/30/2024 Encounters Encounter Location Date Provider Diagnosis [facility] [address] [facility] [address] [place] [id number] 10/30/2024 Messi Soto Essential hypertensi on I10 [...] 05/02/2025 01:45:00 PM, [address] [facility], [address], [place], [phone], Progress Notes * Augie FUENTES:[birth year] (69 yo M)Acc No.[id number]:10/30/2024 Progress Notes Patient: Jamel MITCHELL Provider: Yvonne Soto M.D. :1955 A ge:69 Y S ex:Male Date:10/30/2024 Address: [place], [id number] Subjective: * Chief Complaints: * 1 . [...] 07/2015, Heart Cath - Dr. Rojas - [facility] 08/22/2015, Colonoscopy 2011, Bilateral Cataract Removal 04/2020, LT Eye Lasix 11/29/2020, Right Shoulder Replacement 03/08/2023. * Hospitalization/Major Diagno stic Procedure: Yvonne Hillman- [facility] 12/21-02/2018. * Family History: F ather: [...] * Images: Billing Information: * Visit Code: 98143 Office Visit, Est Pt., Level 4. * Procedure Codes: G2211 Complex e/m visit add on. 1036F TOBACCO NON-USER. G8950 PREHTN/HTN BP DOC INDCD F/U DOC. G8752 MOST RECENT SYSTOLIC BP < 140MM HG. G8754 MOST RECENT DIASTOLIC BP < 90MM HG. * Electronic signature of Nayeli Soto MD on 02/28/2025 at 02:04 PM EDT Sign off status: Pending * Provider: Yvonne Soto M.D. Date: 0 10/30/2024 Generated for Rashaun kilgore/Rosalva/Marlenaitting on: 1 02:04 PM EDT History and Physical Notes * [...]
--- OUTSIDE RECORDS SUMMARY | 2024-11-10 04:25 | XMS_ITS ---
Author Organization [facility] Address [address] [place] [id number] Care Team Providers Care Psychotherapist Counselor Name Role Phone Messi Soto Primary Care [...] 0.66 Performing Lab: Notes/Report: Test performed by [facility] , [address], [place] [address] Pedro Pablo Das MD, Ballpoint Pen Cartridge Tester CLIA: [id number] Sodium 142 135-145 mmol/L Potassium 4.4 3.5-5.3 [...] Interpretation:Normal Performing Lab: Notes/Report: Test performed by [facility], [address] , [address] , [place] [address] Pedro Pablo Das MD, Ballpoint Pen Cartridge Tester CLIA: [id number] Cholesterol 129 <200 mg/dL Triglycerides 56 <150 [...] Interpretation:Normal Performing Lab: Notes/Report: Test performed by [facility] , [place] [address] Pedro Pablo Das MD, Ballpoint Pen Cartridge Tester CLIA: [id number] PSA 1.58 <4.00 ng/mL Please note this is an ultrasensitive PSA assay with a lower limit of detection of 0.014 ng/mL. This test is performed by the [employer] ECLIA methodology. Values obtained with different assay methods or kits cannot be directly compared. P-TSH reflex to FT4 Reviewed date:11/15/2024 04:56:13 PM Interpretation:Normal Performing Lab: Notes/Report: Test performed by [facility] [place] , [address], [place] [address] Pedro Pablo Das MD, Ballpoint Pen Cartridge Tester CLIA: [id number] TSH reflex to FT4 2.32 0.43-5.25 mU/L P-Microalbumin/Creatinine, R andom Urine Sample Reviewed date:11/15/2024 04:56:13 PM Interpretation:a/c 296 Performing Lab: Notes/Report: Test performed by [facility], [facility] [address] [place] [address] , [address], [place] [address] Pedro Pablo Das MD, Ballpoint Pen Cartridge Tester CLIA: [id number] Albumin/Creatinine Ratio, Urine 296 0-30 ug/mg Microalbumin, [...] Active Encounters Encounter Location Date Provider Diagnosis [facility] [address] [facility] [address] [place], [place] [id number] 11/10/2024 [facility] [place] Essential hypertensi on I10 ; Pure hypercholesterolemia [address], [place], [id number], Progress Notes * Jamel FUENTESDOB:[birth year] (69 yo M)Acc No.[id number]:11/10/2024 Patient: Jamel MITCHELL Provider: Yvonne Soto M.D. :1955 A ge:69 Y S ex:Male Date:11/10/2024 Address: [address], [place], [id number] Subjective: * Chief Complaints: * 1 . [...] Mercado 11/10/2024 09:54: 44 AM EDT > Priynaka Anna 11/15/2024 04:56:06 PM EDT > See [...] Codes: 8 5025 CBC WITH AUTO DIFF, 59552 VENIPUNCT, ROUTINE* * Images: Billing Information: * Visit Code: * Procedure Codes: 21042 CBC WITH AUTO DIFF. 18776 VENIPUNCT, ROUTINE*. * Electronic signature of [place]eli Soto MD on 02/28/2025 at 02:04 PM EDT Sign off status: Pending * Provider: Yvonne Soto M.D. Date: 0 11/10/2024 Generated for Rashaun kilgore/Rosalva/Daya on: 1 02:04 PM EDT
--- OUTSIDE RECORDS SUMMARY | 2025-02-27 07:30 | XMS_ITS ---
[facility] Address [address] [place] [id number] Care Team Providers Care Employment Consultant Name Role Phone Messi Soto Primary Care Provider Marlee Argueta Unavailable [phone] Allergies No Known Allergies Results Component Value Reference Range Notes Influenza Screen (in house) Reviewed date:02/27/2025 01:21:28 PM Interpretation:Negative Performing Lab: Notes/Report: Negative results Neg Covid test (in house) Reviewed date:02/27/2025 01:21:45 PM Interpretation:Negative Performing Lab: Notes/Report: Negative Result: Neg REASON FOR VISIT cough & congestion Medications Medication SIG (Take, Route, Frequency, Duration) Notes Start Date End Date Status Dymista 137-50 MCG/ACT 1 spray(s) each n ostril once daily Active Albuterol Sulfate HFA 108 (90 Base) MCG/ACT 1 puff as needed Inhalation every 4 hrs 12/02/2022 Active Cefuroxime Axetil 500 MG 1 tablet Orally twice a day; Duration: 7 days 02/27/2025 Active dexAMETHasone 4 MG 1 tablet Orally twic e a day; Duration: 5 days 02/27/2025 Active Wrist Brace - as directed cock up type 09/13/2024 Active CPAP SUPPLIES DIRECTED 08/11/2016 Act norma Centrum Men - 1 tab(s) orally once a day Active Celecoxib 200 MG 1 capsule as needed Orally Once a day Active Aspirin Adult Low Dose 81 MG 1 tab(s) or ally once a day Active Albuterol Sulfate HFA 108 (90 Base) MCG/ACT 2 puffs Inhalation 3 times a day; Duration: 14 days 02/27/2025 Active Valsartan-hydroCHLOROthiazid e 320-12.5 MG 1 tab(s) orally once a day; Duration: 90 days Active Famotidine 40 MG 1 tab(s) orally once a day (at bedtime); Duration: 90 days Active Tamsulosin HCl 0.4 MG 1 capsule Orally O nce a day; Duration: 90 days Active Montelukast Sodium 10 MG 1 tablet Orally Once a day; Duration: 90 days Active Atorvastatin Calcium 20 MG 1 tablet Oral ly Once a day; Duration: 90 days Active Esomeprazole Magnesium 40 MG 1 cap(s) or ally once a day; Duration: 90 days Active Vital Signs Weight 264.4 lbs 02/27/2025 Blood pressure systolic 122 mm Hg 02/28/20 25 Blood pressure diastolic 76 mm Hg 025 Heart Rate 83 /min 02/27/2025 Height 72.50 in 02/27/2025 BMI 35.36 kg/m2 02/27/2025 Encounters Encounter Location Date Provider Diagnosis [facility] [address] [place], [place] [phone] 02/27/2025 Marlee Argueta Acute bronchitis J20.9 Assessments Encounter Date Diagnosis (ICD Code) Assessment Notes Treatment Notes Treatment Clinical Notes Section Notes 02/27/2025 Acute bronchitis (ICD-10 - J20.9) no physical work; fluids, rest, supportive measures for fever/symptom relief Plan Of Treatment Medication Medication Name Sig Start Date Stop Date Notes Cefuroxime Axetil 500 MG 1 tablet Orally twice a day; Duration: 7 days 02/27/2025 dexAMETHasone 4 MG 1 tablet Orally twic e a day; Duration: 5 days 02/27/2025 Albuterol Sulfate HFA 108 (9 0 Base) MCG/ACT 2 puffs Inhalation 3 times a day; Duration: 14 days 02/27/2025 Treatment Notes Assessment Notes Acute bronchitis no physical work; fl uids, rest, supportive measures for fever/symptom relief Next Appt Details Follow Up: prn, Reason: Provider Name:Messi nazario, 05/02/2025 01:45:00 PM, [address], [address], [place], [phone], Progress Notes * Jamel FUENTESDOB:[birth year] (69 yo M)Acc No.[id number]:02/27/2025 Progress Notes Patient: Jamel MITCHELL Provider: BRIGETTE Mabry :1955 A ge:69 Y S ex:Male Date:02/27/2025 Address:[address], [place], [id number] Pcp:Messi Soto Subjective: * Chief Complaints: * 1 . Cough & congestion. * HPI: E NT/respiratory: heartburn. 69 year old male presents with c/o cough T he pt is here today with c/o shortness of breath, productive cough that is yellow/green and heaviness in his lungs. Pt states this started early Wednesday morning. Pt states he has some Augmentin left over from a couple years ago and has taken 5 pills of that Rx. c/o chest congestion. Denies : sore throat. D enies : nasal congestion. D enies : Fever. D enies : rhinorrhea. D enies : post nasal drainage. D enies : headache.?Denies : smoking. G astroenterology: c/o Acid Reflux. c/o Heartburn. Denies : Nausea. D enies : Vomiting. * ROS: D ERMATOLOGY: no R aleksandar. n o H donnie. G ASTROENTEROLOGY: no N ausea. n o V omiting. n o D iarrhea.? U ROLOGY: no D ifficulty urinating. n [...] Dr. Rojas 07/2015, Heart Cath - Dr. Crystal [facility] 08/22/2015, Colonoscopy 2011, Bilateral Cataract Removal 04/2020, LT Eye Lasix 11/29/2020, Right Shoulder Replacement 03/08/2023. * Hospitalization/Major Diagno stic Procedure: Yvonne chanel Blockage- [facility] 12/21-02/2018. * Family History: F ather: alive, [...] , Taking CPAP SUPPLIES DIRECTED , Taking Dymista 137-50 MCG/ACT Suspension 1 spray(s) each nostril once daily , Taking Albuterol Sulfate HFA 108 (90 Base) MCG/ACT Aerosol Solution 1 puff as needed Inhalation every 4 hrs , Taking Wrist Brace - Miscellaneous as directed cock up type , Taking Esomeprazole Magnesium 40 MG Capsule Delayed Release 1 cap(s) orally once a day , Taking Montelukast Sodium 10 MG Tablet 1 tablet Orally Once a day , Taking Valsartan-hydroCHLOROthiazide 320-12.5 MG Tablet 1 tab(s) orally once a day , Taking Famotidine 40 MG Tablet 1 tab(s) orally once a day (at bedtime) , Taking Tamsulosin HCl 0.4 MG Capsule 1 capsule Orally Once a day , Taking Atorvastatin Calcium 20 MG Tablet 1 tablet Orally Once a day , Medication List reviewed and reconciled with the patient * Allergies: N .K.D.A. Objective: * Vitals: W t: 264.4, Temp: 98.3, BP: 122/76, HR: 83, O2 Sat: 95% on RA, Nurse: SCARLETT, Ht: 72.50, BMI:35.36. * Examination: G eneral Examination: General Appearance: N AD, appears healthy, alert, pleasant; facial sun burn. H EENT: s clera and conjunctiva clear, PERRLA, TM's normal, translucent.?Oral cavity: m ucosa moist and WNL, no erythema. N shyla: n o lymphadenopathy, supple. H eart: R RR. L ungs: c ough; bilateral A&P coarse crackles. N eurologic Exam: a lert and oriented. Assessment: * Assessment: 1. A cute bronchitis - J20.9 (Primary) Plan: * Treatment: Value Reference Range r esults Neg * Deanna Morales 02/27/2025 1 2:25:24 PM EDT > Provider reviewed results while patient in office.Marlee Argueta 02/27/2025 01:21:22 PM EDT > ?LAB: Covid test (in house) (Collection Date & Time - 02/27/2025)?Negative* Value Reference Range R esult: Neg * Deanna Morales 02/27/2025 1 2:25:55 PM EDT > Provider reviewed results while patient in office.Marlee Argueta 02/27/2025 01:21:42 PM EDT > Notes: no physical work; fluids, rest, supportive measures for fever/symptom relief?? * Procedure Codes: 8 7804 Flu Test- Nasal Swab, Modifiers: QW , 27388 COVID TEST IN HOUSE, Modifiers: QW * Follow Up: p rn * Images: Billing Information: * Visit Code: 15357 Office Visit, Est Pt., Level 3. * Procedure Codes: 50814 Flu Test- Nasal Swab. Modifiers: QW 45756 COVID TEST IN HOUSE. Modifiers: QW * Electronic signature of Judy Argueta APRN on 02/28/2025 at 02:03 PM EDT Sign off status: Pending * Provider: BRIGETTE Mabry Date: Generated for Rashaun ng/Rosalva/eTransmitting on: 02:03 PM EDT History and Physical Notes * HPI (History of Present Illness) Category Sub-Category Detail Notes Category Not es ENT/respiratory sore throat cough The pt is here today with c/o shortness of breath, productive cough that is yellow/green and heaviness in his lungs. Pt states this started early Wednesday morning. Pt states he has some Augmentin left over from a couple years ago and has taken 5 pills of that Rx Fever post nasal drainage headache chest congestion rhinorrhea nasal congestion smoking Gastroenterology Vomiting Nausea Heartburn Acid Reflux Examination Category Sub-Category Detail Notes Category Not es General Examination HEENT: sclera and c onjunctiva clear, PERRLA, TM's normal, translucent Heart: RRR Lungs: cough; bilateral A&P coarse crackles General Appearance: NAD, appears healthy , alert, pleasant; facial sun burn Neurologic Exam: alert and oriented Neck: no lymphadenopathy, supple Oral cavity: mucosa moist and WNL , no erythema
--- OUTSIDE RECORDS SUMMARY | 2025-02-28 14:03 | XMS_ITS | Clinical Summary ---
Author Organization Healthcare Address [address] [place] [address] Care Team Providers Care Sales Manager Prearranged Funerals Name Role Phone Messi Soto MD Primary Care Provider [phone] Allergies No known active allergies Medications valsartan-hydro CHLOROthiazide (Diovan-HCT) 320-12.5 MG tablet Take 1 tablet by mouth 1 (one) time each day. 2 Active esomeprazole (NexIUM) [address] capsule Take 1 capsule (40 mg) by mouth 1 (one) time each day. 2 Active Fluticasone Furoate-Vilante rol (Breo Ellipta) 100-25 MCG/ACT aerosol powder INHALE 1 PUFF BY MOUTH ONCE DAILY 2 Active albuterol 108 (90 Base) MCG/ACT inhaler INHALE 2 PUFFS BY MOUTH EVERY 6 HOURS NEEDED FOR SHORTNESS OF BREATH OR WHEEZING 2 Active montelukast (Singulair) 10 MG tablet Take 1 tablet (10 mg) by mouth 1 (one) time each day. 2 Active tamsulosin (Flomax) 0.4 MG 24 hr capsule Take 1 capsule (0.4 mg) by mouth 1 (one) time each day. 2 Active atorvastatin (Lipitor) 20 MG tablet Take 1 tablet (20 mg) by mouth 1 (one) time each day. 2 Active famotidine (Pepcid) 40 MG tablet Take 1 tablet (40 mg) by mouth every night. 2 Active omega-3 (Fish Oil) 1000 MG capsule 1 (one) time each day. 6 Active Misc Natural Products (OSTEO BI-FLEX/5-LOXIN ADVANCED PO) Osteo Bi-Flex Act norma Multiple Vitamins-Minera ls (CENTRUM SILVER 50+MEN PO) 6 Active HYDROcodone-eulalia taminophen (Hastings) 5-325 MG tablet Take 1 tablet (5 mg of hydrocodone) by mouth every 4 (four) hours if needed for moderate pain. 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/21/2023 Chronic right shoulder pain 03/16/2023 Primary osteoarthritis of right shoulder 023 Arthritis of right shoulder region 09/23/2022 Immunizations Immunization Administration Dates Next Due Hep A, Adult 03/31/2018 Influenza, seasonal, injectable 02/14/2015 Pneumococcal Conjugate PCV 13 05/27/2015 Family History Medical History Relation Name Comments Hypertension Other Relation Name Status Comments Other Social History Tobacco Use Types Packs/Day Years Used Date Smoking Tobacco: Former Cigarettes 1 6 - 1980 Smokeless Tobacco: Never Tobacco Cessation:Counseling Given: Not Answered Alcohol Use Standard Drinks/Week Comments Yes 0 (1 standard drink = 0.6 oz pur e alcohol) socially PHQ-2 Answer Date Recorded Patient Health Questionnaire-2 Score 0 09/18/2022 PHQ-2A Answer Date Recorded Patient Health Questionnaire-2 Score 0 09/18/2022 Sex and Gender Information Value Date Recorded Sex Assigned at Not on file Legal Sex Male 6:55 PM EDT Gender Identity Not on file Sexual Orientation Not on file Last Filed Vital Signs Vital Sign Reading Time Taken Comments Blood Pressure 158/90 03/07/2024 10:01 AM EDT Pulse 64 06/15/2023 10:22 AM EST Temperature 36 C (96.8 F) 03/08/2023 11:20 AM EDT Respiratory Rate 18 03/08/2023 11:30 AM EDT Oxygen Saturation 95% 06/15/2023 10:22 AM EST Inhaled Oxygen Concentration - - Weight 118 kg (261 lb 3.9 oz) 03/07/2024 10:01 A M EDT Height 182.9 cm (6') 03/07/2024 10:01 AM EDT Body Mass Index 35.43 03/07/2024 10:01 AM EDT Plan of Treatment Health Maintenance Due Date Last Done Comments [facility]-Hepatitis C Screening 1955 [facility]-Medicare Annual Wellness (AWV) 1955 [facility]-/Child/Adol SDOH Screenings 1955 [facility]- SDOH Screenings 10/29/1975 [facility]-Adult SDOH Screenings 10/29/1975 CT Colonography 2002 Colonoscopy 2002 FIT-DNA 2002 FIT 2002 FOBT 2002 Sigmoidoscopy 2002 [facility]-Colorectal Cancer Screening 2002 [facility]-Abdominal Aortic Aneurysm (AAA) Screening 2022 [facility]-Depression Screening 09/19/2023 09/18/2022 XMG-WSATG-64 Vaccine ( season) 2025 02/23/2024, 04/06/2023, 03/18/2023, Additional history exists [facility]-Influenza Vaccine (#1) 01/15/202502/22, 02/16/2023, 02/18/2022, Additional history exists [facility]-DTaP,Tdap,and Td Vaccines (3 - Td or Tdap) 01/31/2030 02/01/2020, 10/24/2018, 07/19/1996 [facility]-Zoster Vaccines Completed 06/13/2018, 8 [facility]-Hepatitis A Vaccines Aged Out 019, 04/13/2018, 03/31/2018 No longer eligible based on patient's age to complete this topic [facility]-Pneumococcal Vaccine: 50+ Years Completed 02/16/2023, 05/27/2015 [facility]-RSV Vaccine: 60+ Years or Completed 02/16/2023 [facility]-Obesity Intervention Completed 024, 06/15/2023, 04/22/2023, Additional history exists HPV Vaccines Aged Out No longer eligi ble based on patient's age to complete this topic [facility]-HIB Vaccines Aged Out No longer e ligible based on patient's age to complete this topic [facility]-IPV Vaccines Aged Out No longer e ligible based on patient's age to complete this topic [facility]-Rotavirus Vaccines Aged Out No lo nger eligible based on patient's age to complete this topic Medical Devices Implanted Type Area Lifter Device Identifier Shelf Expiration Date Model / Serial / Lot Screw Perform Reversed Peripheral 5x46mm - [id number] - [id number] Implanted:Qty: 1 on 03/08/2023 by Craig Jon MD at [facility] Screw Right: Shoulder [employer] ([facility])-139 168 03/05/2024 [id number] / [id number] / Screw Perform Reversed Central 6.5x35mm - [id number] - [id number] Implanted:Qty: 1 on 03/08/2023 by Craig Jon MD at [facility] Screw Right: Shoulder [employer] ([facility])-139 168 03/05/2024 [id number] / [id number] / Screw Perform Reversed Peripheral 5x22mm - [id number] - [id number] Implanted:Qty: 1 on 03/08/2023 by Craig Jon MD at [facility] Screw Right: Shoulder [employer] ([facility])-139 168 03/05/2024 [id number] / [id number] / Screw Perform Reversed Peripheral 5x34mm - [id number] - [id number] Implanted:Qty: 1 on 03/08/2023 by Craig Jon MD at [facility] Screw Right: Shoulder [employer] ([facility])-139 168 03/05/2024 [id number] / [id number] / Baseplate Fullwdg Augmnt Perform Rvrsd 15dg/29mm - [id number] - [id number] Implanted:Qty: 1 on 03/08/2023 by Craig Jon MD at [facility] Shoulder Right: Shoulder [employer] ([facility])-139 168 09/30/2027 [id number] / [id number] / [id number] [employer] Perform Reversed Standard 42mm - [id number] - [id number] Implanted:Qty: 1 on 03/08/2023 by Craig Jon MD at [facility] Shoulder Right: Shoulder [employer] ([employer])-139 168 03/13/2027 [id number] / [id number] / [id number] Stem Humeral Perfrom Sz 3 - [id number] - [id number] Implanted:Qty: 1 on 03/08/2023 by Craig Jon MD at [facility] Shoulder Right: Shoulder [employer] ([facility]139 168 05/08/2027 [id number] / [id number] / [id number] Insert Perform Rvrsd Sz3/4 42mm/Pls 0mm - [id number] - [id number] Implanted:Qty: 1 on 03/08/2023 by Craig Jon MD at [facility] Shoulder Right: Shoulder [employer] ([facility]139 168 06/15/2027 [id number] / [id number] / [id number] [employer]/Gent - [id number] Implanted:02/15 by Craig Jon MD at [facility] (Quantity not on file) [employer]-[id number] / / Cement Pal[employer] W/Gent - [id number] Implanted:02/15 by Craig Jon MD at [facility] (Quantity not on file) [id number] / / Insurance MEDICARE [facility] Care Teams Sales Manager Prearranged Funerals Relationship Specialty Start Date End Date Messi Soto MD [address] [place] [address] PCP - General 09/27/20
--- OUTSIDE RECORDS SUMMARY | 2025-02-28 14:04 | XMS_ITS | Data Portability ---
Author Organization [facility] Address [address] [place] [address] Care Team Providers Care Senior Data Quality Analyst Name Role Phone YAHIR SENA Primary Care Provider [phone] JADA CARRENO Referring Provider Assessment No assessment recorded. Plan of Treatment Reminders Order Date Submit Date Provider Last Modified By Organization Details Last Modified Time Details Appointments NEW PATIENT O 2024 10:30A M DOMINIQUE AMATO MD Not available Not available Not available Lab None recorded. Referral None recorded. Procedures None recorded. Surgeries None recorded. Imaging electroca rdiogram [address] Marilyn Trevizo, [address] [place] [address], [phone], 03/07/2018 11:26:16 electroca rdiogram 2016 [address]17 [place] [address] Marilyn Trevizo, [address] [place] [address], [phone], 02/09/2017 08:29:17 Medication Orders None recorded. Patient TargetsNo targets recorded. Patient Instructions Encounter Date Encounter Id Patient Instructions Last Modified By Organization Details Last Modified Time 02/08/2017 [id number] chest pain: care instructions REBECCA Not available 02/10/2017 18:25:13 RTC: 1 year with EKG. [email or web address] Not available 02/08/2017 16:53:38 Reason for Referral None Reported. Results Created Date Observation Date Name Description Value Unit Range Abnormal Flag Note LastModifiedBy Organization Detail LastModifiedTime 02/10/20 17 02/08/2017 elect leeroy cobian am No observ ation record ed. BARCODE [facility] [address], [place], [address], 02/09/2017 15:20:37 03/08/20 18 03/07/2018 elect leeroy dwyergr am No observ ation record ed. [facility] [address], [place], [address], 03/08/2018 09:47:19 Result Notes None recorded. Problems Name Problem SNOMED Code Status Onset Date Resolution Date Notes Provider Name and Address Organization Details Recorded Time Chest pain 76855169 Active 016 From Automated Load;Provi niels: Yuli Chamorro;Statu s: Active Not Available [facility] 6 09:07:15 Right bundle branch block 50265716 Active 016 From Automated Load;Provi niels: Yuli Chamorro;Statu s: Active Not Available [facility] 6 09:07:15 Problem Notes None recorded. Procedures Surgical History Date Name Laterality Status Provider Name and Address Organization Details Recorded Time Cardiac Catheterization completed YULI CHAMORRO MD [address] [place] [address], [phone] [place] [address] 02/07/2017 14:40:22 Remove tonsils and adenoids completed YULI CHAMORRO MD [address] [place] [phone] 02/07/2017 14:40:44 Hernia repair w/mesh completed YULI CHAMORRO MD [address] [place] [phone] 02/07/2017 14:40:54 Imaging Results None recorded. Procedure Notes None recorded. Medical Equipment None [...] index (BMI) Body weight Heart rate Systolic And Diastolic Provider Name and Address Organization Details Last Updated DateTime 02/08/2017 182.88 cm 32.8 kg/m2 165449.3 5 g 61 /min 128/82 mm[Hg] Jayde Antunez [facility] 02/08/2017 14:32:44 Date Recorded Body height Heart rate Systolic And Diastolic Provider Name and Address Organization Details Last Updated DateTime 03/07/2018 182.88 cm 63 /min 140/86 mm[Hg] Pamela Portillo [facility] 03/07/2018 10:15:37 Social History Question Answer Notes LastModified by Organizat ion Details LastModified Time Tobacco Smoking Status Former Smoker YULI CHAMORRO MD [facility] [place], [address], [facility] 02/07/2017 14:38:22 Marital Status Informatio n not available 02/07/2017 What Was The Date Of Your Most Recent Tobacco Screening? 03/07/2018 Information n ot available 07/04/2019 How Many Children Do You Have? 4 Information not available 02/07/2017 Sex: Unknown Functional Status Question Answer Note LastModified by Organizat ion Details LastModified Time What is your level of alcohol consumption? 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 Family History Relationship [...] Diagnosis SNOMED-CT Code Diagnosis ICD10 Code Diagnosis IMO Codes Diagnosis Note [id number] YULI CHAMORRO MD CARDI[facility] [place] [address] [place] [address] 02/08/2017 13:35:22 02/09/2017 08:29:16 Right bundle branch block 49115595 I45.0 EKG:RBBB with Left axis deviation. No change from previous. Chest pain 93555341 R07. 9 Patient has chronic noncardiac chest pain confirmed with normal cardiac catheteriz ation studies in the past. [id number] YULI CHAMORRO MD CARDIOLOG Y [address] [place] [address] 03/07/2018 09:59:28 03/07/2018 11:26:15 Right bundle branch block 67241431 I45.0 EKG:RBBB with Left axis deviation. No change from previous. Chest pain 70472664 R07. 9 Symptoms resolved it appears to been related to cervical disease. RTC: When necessary Health Concerns Section Related Observation LastModified by Organization Detai ls LastModified Time None Recorded Concern Status LastModified by Organization Details LastModified Time None Recorded Advance Directives Directive None Recorded Payers Insurance Date Sequence Insurance Name Policy Number Policy Hoffman Covered Member ID Hoffman Member ID Guarantor Name 10/26/2024 1 [place] Jamel Guaman Alfredo [id number] Jamel Guaman Alfredo 10/26/2024 1 [place] [id number] [place] [id number] Jamel Guaman Alfredo Notes Date Note Type Note Provider Name and Address Organization Details Recorded Time 02/08/2017 text/html WM with hypertension and GERD. Previously followed with a warehouse consultant in [place], Dr. Rojas. He had a cardiac catheterization [...] orthopnea, PND and syncope. YULI CHAMORRO MD [facility] [place], [address], [facility] 02/08/2017 16:54:16 03/07/2018 text/html WM/ hypertension/GERD/RBB B. [...] palpitations, orthopnea, PND, syncope. YULI CHAMORRO MD [address] [place] [address], [phone], [facility] 03/07/2018 10:41:06
--- OUTSIDE RECORDS SUMMARY | 2025-02-28 14:04 | XMS_ITS | Patient Health Record ---
Author Organization [facility] Address [address] [place] [id number] Care Team Providers Care Cartography Teacher Name Role Phone Messi Soto Primary Care Provider [phone] Marlee Argueta Unavailable [phone] Allergies No Known Allergies Results Component Value Reference Range Notes Influenza Screen (in house) Reviewed date:02/27/2025 01:21:28 PM Interpretation:Negative Performing Lab: Notes/Report: Negative results Neg Covid test (in house) Reviewed date:02/27/2025 01:21:45 PM Interpretation:Negative Performing Lab: Notes/Report: Negative Result: Neg X ray : Wrist, left Reviewed date:09/15/2024 10:28:30 AM Interpretation:Abnormal Performing Lab: Notes/Report: Abnormal Covid test (in house) Reviewed date:05/19/2024 03:23:02 PM Interpretation: Performing Lab: Notes/Report: Result: Neg CBC Fingerstick (in house) Reviewed date:05/19/2024 [...] - 38 plat 125 100 - 400 Influenza Screen (in house) Reviewed date:05/19/2024 03:23:18 PM Interpretation: Performing Lab: Notes/Report: results Neg CBC Venipuncture (in house) Reviewed date:05/02/2024 11:43:09 [...] Interpretation:Satisfactory Performing Lab: Notes/Report: Test performed by [email or web address] [address] [place] [address] , [address], [place] [address] Pedro Pablo Das MD, [employer] CLIA: [id number] Sodium 139 135-145 mmol/L Potassium 4.1 3.5-5.3 mmol/L Chloride 103 97-108 mmol/L CO2 26 22-32 mmol/L Glucose 117 65-99 mg/dL BUN 11 8-23 mg/dL Creatinine 0.73 0.70-1.30 mg/dL Calcium 9.4 8.6-10.4 mg/dL eGFR by Creatinine 100 >59 mL/min/1.73m2 CT scan : Pelvis w/ oral and IV contrast Reviewed date:05/24/2024 12:41:36 PM Interpretation:Negative Performing Lab: Notes/Report: Negative CBC Venipuncture (in house) Reviewed date:11/15/2024 04:56:13 [...] 0.66 Performing Lab: Notes/Report: Test performed by [email or web address] [address] [place] [address] [address], [place] [address] Pedro Pablo Das MD, [employer] CLIA: [id number] Sodium 142 135-145 mmol/L Potassium 4.4 3.5-5.3 [...] Interpretation:Normal Performing Lab: Notes/Report: Test performed by [email or web address] [address] [place] [address] [address], [place] [address] Pedro Pablo Das MD, [employer] CLIA: [id number] Cholesterol 129 <200 mg/dL Triglycerides 56 <150 [...] Interpretation:Normal Performing Lab: Notes/Report: Test performed by [facility], [address] , [address], [place] [address] Pedro Pablo Das MD, [employer] CLIA: [id number] PSA 1.58 <4.00 ng/mL Please note this is an ultrasensitive PSA assay with a lower limit of detection of 0.014 ng/mL. This test is performed by the [employer] ECLIA methodology. Values obtained with different assay methods or kits cannot be directly compared. P-TSH reflex to FT4 Reviewed date:11/15/2024 04:56:13 PM Interpretation:Normal Performing Lab: Notes/Report: Test performed by [email or web address] [address] [place] [address] , [address], [place] [address] Pedro Pablo Das MD, [employer] CLIA: [id number] TSH reflex to FT4 2.32 0.43-5.25 mU/L P-Microalbumin/Creatinine, R andom Urine Sample Reviewed date:11/15/2024 04:56:13 PM Interpretation:a/c 296 Performing Lab: Notes/Report: Test performed by [facility] [address] , [address], [place] [address] Pedro Pablo Das MD, [employer] CLIA: [id number] Albumin/Creatinine Ratio, Urine 296 0-30 ug/mg Microalbumin, Urine, Random 17.4 Creatinine, Urine 58.7 MRI : Wrist, Left, without c ontrast Reviewed date:09/25/2024 11:59:26 AM Interpretation:Abnormal Performing Lab: Notes/Report: Abnormal Reason For Referral Reason Dr. Mont[place] in [place] Diagnosis 1 Osteochondrosis of l unate of left wrist (M92.212) [facility] Referring Provider First Name Messi Referring Provider Last Name Brittany Referring Provider [facility] Referred Provider Specialty Orthopedic S urgery General Notes Vy Garcia 2024 10:21:46 AM > sent referral via [facility] website Referral Priority Routine Medications Medication SIG (Take, Route, Frequency, Duration) Notes Start Date End Date Status Centrum Men - 1 tab(s) orally once a day Active Valsartan-hydroCHLOROthiazid e 320-12.5 MG 1 tab(s) orally once a day; Duration: 90 days Active CPAP SUPPLIES DIRECTED 08/11/2016 Act norma Famotidine 40 MG 1 tab(s) orally once a day (at bedtime); Duration: 90 days Active Dymista 137-50 MCG/ACT 1 spray(s) each n ostril once daily Active Tamsulosin HCl 0.4 MG 1 capsule Orally O nce a day; Duration: 90 days Active Esomeprazole Magnesium 40 MG 1 cap(s) or ally once a day; Duration: 90 days Active Celecoxib 200 MG 1 capsule as needed Orally Once a day Active Aspirin Adult Low Dose 81 MG 1 tab(s) or ally once a day Active Montelukast Sodium 10 MG 1 tablet Orally Once a day; Duration: 90 days Active Albuterol Sulfate HFA 108 (90 Base) MCG/ACT 2 puffs Inhalation 3 times a day; Duration: 14 days 02/27/2025 Active Atorvastatin Calcium 20 MG 1 tablet Oral ly Once a day; Duration: 90 days Active Albuterol Sulfate HFA 108 (90 Base) MCG/ACT 1 puff as needed Inhalation every 4 hrs 12/02/2022 Active Cefuroxime Axetil 500 MG 1 tablet Orally twice a day; Duration: 7 days 02/27/2025 Active dexAMETHasone 4 MG 1 tablet Orally twic e a day; Duration: 5 days 02/27/2025 Active Wrist Brace - as directed cock up type 09/13/2024 Active Immunizations Vaccine Route Administration Date Status Comme nts COVID 19 Pfizer Unknown 08/03/2020 Administered COVID 19 Pfizer Unknown 02/19/2021 Administered DT, 7 YEARS OR OLDER Unknown 07/19/1996 Administered Fluzone High Dose (65yr and older) Unknown 02/16/2023 Administered Fluzone PF Quad (6-35 months) Unknown 02/14/2019 Administered Fluzone PF Quad (6-35 months) Unknown 03/04/2021 Administered Fluzone PF Quad (6-35 months) Unknown 02/18/2022 Administered Fluzone Quad (6months&older) Unknown 02/14/2019 Administered Fluzone Quad (6months&older) IM Intramuscular 02/01/2020 Administered Hepatitis A (adult) Unknown 04/13/2018 Administered Hepatitis A (adult) Unknown 05/18/2018 Administered Hepatitis A (adult) Unknown 10/24/2018 Administered ppd ID Intradermal 05/20/2015 Administered Prevnar (PCV20) Unknown 02/16/2023 Administered Shingrix Unknown 04/13/2018 Administered Shingrix Unknown 05/18/2018 Administered Shingrix Unknown 06/13/2018 Administered Tetanus Tdap-Adacel (over 7yrs) IM Intramuscular 02/01/2020 Administered xAdministration of injection Unknown 02/14/2016 Administered xFlu shot-36 months and older Unknown 02/14/2016 Administered Problems Problem Type SNOMED Code ICD Code Onset Dates Problem Status W/U Status Risk Notes Problem Essential hypertension (91474980) Essential hypertension (I10) Active confirmed Problem Sciatic nerve lesion (153661265) Piriformis syndrome of right side (G57.01) Active confirmed Problem Arthropathy of lumba r facet joint (845168363) Lumbar facet arthropathy (M47.816) Active confirmed Problem Obstructive sleep apnea (10666490) Obstructive sleep apnea (G47.33) Active confirmed Problem Anorexia (89491777) Anorexia (R63.0) Active con firmed Problem Arthropathy of cervical spine facet joint (disorder) (126348083) Facet arthropathy, cervical (M46.92) Active confirmed Problem Degeneration of cervical intervertebral disc (74418669) Degenerative disc disease, cervical (M50.30) Active confirmed Problem Degeneration of lumbar intervertebral disc (73140846) Lumbar degenerative disc disease (M51.36) Active confirmed Problem Gastroesophageal reflux disease without esophagitis (167508772) Gastroesophageal reflux disease without esophagitis (K21.9) Active confirmed Problem Bilateral tinnitus (5568537353516) Tinnitus of both ears (H93.13) Active confirmed Problem Gastroesophageal reflux disease (162454768) Gastroesophageal reflux disease, esophagitis presence not specified (K21.9) Active confirmed Problem Uncomplicated mild persistent asthma (809844486) Mild persistent asthma without complication (J45.30) Active confirmed Problem Leukocytosis (187839462) Leukocytosis, unspecified type (D72.829) Active confirmed Problem Asthma without statu s asthmaticus (48167206) Asthmatic bronchitis, unspecified asthma severity, uncomplicated (J45.909) Active confirmed Problem Snoring (07262693) History of sn oring (Z87.898) Active confirmed Problem Bifascicular block (83842198) Right BBB/left ant fasc block (I45.2) Active confirmed Problem Sciatica (99558173) Acute right- sided low back pain with right-sided sciatica (M54.41) Active confirmed Problem Sciatica (09209828) Acute left-s ided low back pain with left-sided sciatica (M54.42) Active confirmed Problem Pure hypercholesterolemia (827175584) Pure hypercholesterolemia (E78.00) Active confirmed Problem Arthritis of right knee (3312677983095749) Arthritis of right knee (M17.11) Active confirmed Problem Exacerbation of asthma (348290375) Asthmatic bronchitis with acute exacerbation, unspecified asthma severity, unspecified whether persistent (J45.901) Active confirmed Problem Allergic rhinitis (33236107) Allergic rhinitis, unspecified seasonality, unspecified trigger (J30.9) Active confirmed Problem Gastroesophageal reflux disease (250785426) Gastroesophageal reflux disease, unspecified whether esophagitis present (K21.9) Active confirmed Vital Signs Heart Rate 83 /min 02/27/2025 Blood pressure diastolic 76 mm Hg 02/27/2025 Height 72.50 in 02/27/2025 Blood pressure systolic 122 mm Hg 02/27/2025 Weight 264.4 lbs 02/27/2025 BMI 35.36 kg/m2 02/27/2025 Encounters Encounter Location Date Provider Diagnosis [facility] [address] [place], [place] [id number] 05/01/2024 Messi Victor Essential hypertensi on I10 and Rectal pain K62.89 [facility] [address] [facility] [address] [place], [place] [id number] 05/19/2024 Messi Victor Viral URI J06.9 [facility] [address] [facility] [address] [place], [place] [id number] 09/13/2024 Messi Victor Left wrist pain M25. 532 [facility] [address] [place], [place] [id number] 10/30/2024 Messi Victor Essential hypertensi on I10 ; Pure hypercholesterolemia E78.00 ; Gastroesophageal reflux disease, unspecified whether esophagitis present K21.9 ; Rheumatoid factor positive R76.8 and VIANCA positive R76.8 [facility] [address] [facility] [address] [place], [place] [id number] 11/10/2024 Messi Victor Essential hypertensi on I10 ; Pure hypercholesterolemia E78.00 and Screening for prostate cancer Z12.5 [facility] [address] [facility] [address] [place], [place] [id number] 02/27/2025 Marlee Argueta Acute bronchitis J20.9 [facility] [address] [facility] [address] [place] [id number] 05/23/2024 Messi Victor Tiara [address] [facility] [address] [place] [id number] 06/20/2024 Messi Victor Essential hypertensi on I10 ; Allergic rhinitis, unspecified seasonality, unspecified trigger J30.9 ; Mild persistent asthma without complication J45.30 and Pure hypercholesterolemia E78.00 [facility] [address] [facility] [address] [place] [id number] 09/15/2024 Messi Victor Left wrist pain M25. 532 and Closed displaced fracture of lunate of left wrist, initial encounter S62.122A [facility] [address] [facility] [address] [place] [id number] 09/25/2024 Messi Victor Osteochondrosis of l unate of left wrist M92.212 ; Wrist tendonitis M77.8 and Left wrist pain M25.532 [facility] [address] [facility] [address] [place] [id number] 11/15/2024 [facility] [address] [place] [id number] 12/18/2024 Messi Victor Assessments Encounter Date Diagnosis (ICD Code) Assessment Notes Treatment Notes Treatment Clinical Notes Section Notes 05/01/2024 Essential hypertensi on (ICD-10 - I10) 05/01/2024 Rectal pain (ICD-10 - K62.89) 05/19/2024 Viral URI (ICD-10 - J06.9) 06/20/2024 Essential hypertensi on (ICD-10 - I10) 09/13/2024 Left wrist pain (ICD -10 - M25.532) Rest, ice, compression and elevation 09/15/2024 Left wrist pain (ICD -10 - M25.532) 09/15/2024 Closed displaced fracture of lunate of left wrist, initial encounter (ICD-10 - S62.122A) 09/25/2024 Wrist tendonitis (ICD-10 - M77.8) 09/25/2024 Osteochondrosis of lunate of left wrist (ICD-10 - M92.212) 10/30/2024 Essential hypertensi on (ICD-10 - I10) 10/30/2024 Pure hypercholesterolemia (ICD-10 - E78.00) 11/10/2024 Essential hypertensi on (ICD-10 - I10) 11/10/2024 Pure hypercholesterolemia (ICD-10 - E78.00) 02/27/2025 Acute bronchitis (ICD-10 - J20.9) no physical work; fluids, rest, supportive measures for fever/symptom relief 06/20/2024 Allergic rhinitis, unspecified seasonality, unspecified trigger (ICD-10 - J30.9) 10/30/2024 Gastroesophageal ref lux disease, unspecified whether esophagitis present (ICD-10 - K21.9) 09/25/2024 Left wrist pain (ICD -10 - M25.532) 06/20/2024 Mild persistent asth ma without complication (ICD-10 - J45.30) 11/10/2024 Screening for prosta te cancer (ICD-10 - Z12.5) 10/30/2024 Rheumatoid factor positive (ICD-10 - R76.8) 10/30/2024 VIANCA positive (ICD-10 - R76.8) 06/20/2024 Pure hypercholesterolemia (ICD-10 - E78.00) 10/30/2024 Other Patient will return to the office after 11/09 for the following fasting labs: CBC, CMP, Lipid, TSH with reflex to free T4, urine Microalbumin/c r and PSA Plan Of Treatment Next Appt Details Provider Name:Messi nazario, 05/02/2025 01:45:00 PM, [address], [address], [place], [place], [id number], Insurance Providers Payer Name Payer Address Payer Phone Subscriber Number Group Number Insured Name Patient Relationship to Insured Coverage Start Date Coverage End Date MEDICARE PART B [place] [address] [place] [id number] Jamel Fuentes Self - patient is the insured [employer] [address] [address] [phone] [id number] Jamel Fuentes Self - patient is the insured Medications Administered Medication Instructions Date of Administration Dosage Notes Depo- Medrol 40 mg/ml 12/28/2018 1.5 mL Dexamethasone 04/10/2015 1 mL Medical (General) History Medical History History ICD Code Hypertension Esophageal Reflux Allergic Rhinitis Hemorrhoids Normal left heart cath August 2015 sleep apnea, Dx: 2016 asthma osteoarthritis knees, s/p ortho evaluati on 2018 tinnitus, s/p ENT evaluation 2018 Metatarsus Adductus, bilateral feet Surgical History Surgery Date(Month/Year) Tonsillectomy 1963 Umbilical Hernia Repair 2010 EGD - 07/2015 Stress Test and Echo - Dr. Rojas 07/16 016 Heart Cath - Dr. Rojas [facility] 08/22/2015 Colonoscopy 2011 Bilateral Cataract Removal 04/2020 LT Eye Lasix 11/29/2020 Right Shoulder Replacement 03/08/2023 Hospitalization History Reason Date(Month/Year) Bowel Blockage- [facility] 12/21-02/2018
[2025-02-28 14:38] LABS: Blood Urea Nitrogen 15 mg/dl (9-20); Creatinine,Serum 0.90 mg/dl (0.66-1.25); Estimated Glomerular Filt Rate 84 ml/min (>60); GFR (African American) 102 ML/MIN (>60)
== END 2025-02-28 23:59 | disposition home or self-care (01) ==
LOC: LAB 13:57
PROVIDERS: PCP Family Medicine; Visit Provider Surgery
DX: L29.0 Pruritus ani (principal)
CPT/HCPCS: 36415; 82565; 84520

== ENCOUNTER 2025-03-01 13:28 | Outpatient (CLI) | payer MEDICARE, OTHER, SELFPAY ==
--- OUTSIDE RECORDS SUMMARY | 2024-10-30 09:45 | XMS_ITS ---
Author Organization [facility] Address [address] [place] [id number] Care Team Providers Care Fitness Sales Associate Name Role Phone Messi Soto Primary Care Provider [phone] Allergies No Known Allergies REASON FOR VISIT 6 month ckup Medications Medication SIG (Take, Route, Frequency, Duration) Notes Start Date End Date Status Wrist Brace - as directed cock up type 09/13/2024 Active Albuterol Sulfate HFA 108 (90 Base) MCG/ACT 1 puff as needed Inhalation every 4 hrs 12/02/2022 Active Dymista 137-50 MCG/ACT 1 spray(s) each n ostril once daily Active Atorvastatin Calcium 20 MG 1 tablet Oral ly Once a day Active Valsartan-hydroCHLOROthiazi de 320-12.5 MG 1 tab(s) orally once a day Active Montelukast Sodium 10 MG 1 tablet Orally Once a day; Duration: 90 days Active CPAP SUPPLIES DIRECTED 08/11/2016 Act norma Famotidine 40 MG 1 tab(s) orally once a day (at bedtime); Duration: 90 days Active Tamsulosin HCl 0.4 MG 1 capsule Orally O nce a day; Duration: 90 days Active Centrum Men - 1 tab(s) orally once a day Active Aspirin Adult Low Dose 81 MG 1 tab(s) orally once a day Active Celecoxib 200 MG 1 capsule as needed Orally Once a day Active Esomeprazole Magnesium 40 MG 1 cap(s) orally once a day Active Vital Signs Blood pressure systolic 122 mm Hg 10/31/19 25 Blood pressure diastolic 78 mm Hg 025 Heart Rate 70 /min 10/30/2024 Height 72.50 in 10/30/2024 Weight 258 lbs 10/30/2024 BMI 34.51 kg/m2 10/30/2024 Encounters Encounter Location Date Provider Diagnosis [facility] [address] [place] [id number] 10/30/2024 Messi Soto Essential hypertensi on I10 ; Pure hypercholesterolemia E78.00 ; Gastroesophageal reflux disease, unspecified whether esophagitis present K21.9 ; Rheumatoid factor positive R76.8 and VIANCA positive R76.8 Assessments Encounter Date Diagnosis (ICD Code) Assessment Notes Treatment Notes Treatment Clinical Notes Section Notes 10/30/2024 Essential hypertensi on (ICD-10 - I10) 10/30/2024 Pure hypercholesterolemia (ICD-10 - E78.00) 10/30/2024 Gastroesophageal ref lux disease, unspecified whether esophagitis present (ICD-10 - K21.9) 10/30/2024 Rheumatoid factor positive (ICD-10 - R76.8) 10/30/2024 VIANCA positive (ICD-10 - R76.8) 10/30/2024 Other Patient will return to the office after 11/09 for the following fasting labs: CBC, CMP, Lipid, TSH with reflex to free T4, urine Microalbumin /cr and PSA Plan Of Treatment Medication Medication Name Sig Start Date Stop Date Notes Atorvastatin Calcium 20 MG 1 tablet Orally Once a day Valsartan-hydroCHLOROthiazid e 320-12.5 MG 1 tab(s) orally once a day Esomeprazole Magnesium 40 MG 1 cap(s) orally once a day Treatment Notes Assessment Notes Other Patient will return to the office after 11/09 for the following fasting labs: CBC, CMP, Lipid, TSH with reflex to free T4, urine Microalbumin/cr and PSA Next Appt Details Follow Up: nurse visit on & [address] Noriega, Reason: Provider Name:Messi nazario, 05/02/2025 01:45:00 PM, [address] [facility], [address], [place], [phone], Progress Notes * Augie FUENTES:[birth year] (69 yo M)Acc No.[id number]:10/30/2024 Progress Notes Patient: Jamel MITCHELL Provider: Yvonne Soto M.D. :1955 A ge:69 Y S ex:Male Date:10/30/2024 Address: [place], [id number] Subjective: * Chief Complaints: * 1 . 6 month ckup. * HPI: C ardiology: 69 year old male presents with c/o Blood Pressure Elevated P t here for 6 mo f/u on hypertension. Pt states he is doing well and does not have any concerns today. * ROS: D ERMATOLOGY: no R [...] 07/2015, Heart Cath - Dr. Rojas - [facility] 08/22/2015, Colonoscopy 2011, Bilateral Cataract Removal 04/2020, LT Eye Lasix 11/29/2020, Right Shoulder Replacement 03/08/2023. * Hospitalization/Major Diagno stic Procedure: Yvonne Hillman- [facility] 12/21-02/2018. * Family History: F ather: [...] Yes, frequency: daily. * Medications: T aking Celecoxib 200 MG Capsule 1 capsule as needed Orally Once a day , Taking Aspirin Adult Low Dose 81 MG Tablet Delayed Release 1 tab(s) orally once a day , Taking Centrum Men - Tablet 1 tab(s) orally once a day , Taking CPAP SUPPLIES DIRECTED , Taking Valsartan-hydroCHLOROthiazide 320-12.5 MG Tablet 1 [...] needed Inhalation every 4 hrs , Taking Wrist Brace - Miscellaneous as directed cock up type , Discontinued Benzonatate 200 MG Capsule 1 capsule as needed Orally Three times a day , Medication List reviewed and reconciled with the patient * Allergies: N .K.D.A. Objective: * Vitals: W t: 258, Temp: 97.9, BP: 122/78, HR: 70, Nurse: meg, Ht: 72.50, BMI:34.51. * Examination: G eneral Examination: General Appearance: N AD. H eart: R SR. L ungs:?clear to auscultation. A bdomen: b owel sounds present, soft and nontender. P eripheral pulses: n ormal (2+) bilaterally. E xtremities: n o leg edema. ? Assessment: * Assessment: 1. E ssential hypertension - I10 (Primary) 2 . P ure hypercholesterolemia - E78.00 3 . G astroesophageal reflux disease, unspecified whether esophagitis present - K21.9 4 . R heumatoid factor positive - R76.8 5 . A NA positive - R76.8 Plan: * Treatment: 2. P ure hypercholesterolemia Continue Atorvastatin Calcium Tablet, 20 MG, 1 tablet, Orally, Once a day. 3. G astroesophageal reflux disease, unspecified whether esophagitis present Continue Esomeprazole Magnesium Capsule Delayed Release, 40 MG, 1 cap(s), orally, once a day. ? 4. O thers Notes: Patient will return to the office after 11/09 for the following fasting labs: CBC, CMP, Lipid, TSH with reflex to free T4, urine Microalbumin/cr and PSA * Procedure Codes: G 2211 Complex e/m visit add on, 1036F TOBACCO NON-USER, G8950 PREHTN/HTN BP DOC INDCD F/U DOC, G8752 MOST RECENT SYSTOLIC BP < 140MM HG, G8754 MOST RECENT DIASTOLIC BP < 90MM HG * Follow Up: n urse visit on 11/10 & [address] Noriega * Images: Billing Information: * Visit Code: 62500 Office Visit, Est Pt., Level 4. * Procedure Codes: G2211 Complex e/m visit add on. 1036F TOBACCO NON-USER. G8950 PREHTN/HTN BP DOC INDCD F/U DOC. G8752 MOST RECENT SYSTOLIC BP < 140MM HG. G8754 MOST RECENT DIASTOLIC BP < 90MM HG. * Electronic signature of Nayeli Soto MD on 03/01/2025 at 01:32 PM EDT Sign off status: Pending * Provider: Yvonne Soto M.D. Date: 0 10/30/2024 Generated for Rashaun kilgore/Rosalva/Marlenaitting on: 1 01:32 PM EDT History and Physical Notes * HPI (History of Present Illness) Category Sub-Category Detail Notes Category Not es Cardiology Blood Pressure Elevated Pt here for 6 mo f/u on hypertension. Pt states he is doing well and does not have any concerns today Examination Category Sub-Category Detail Notes Category Not es General Examination Heart: RSR Lungs: clear to auscultatio n Abdomen: bowel sounds present , soft and nontender Extremities: no leg edema General Appearance: NAD Peripheral pulses: normal (2+) bilatera lly
--- OUTSIDE RECORDS SUMMARY | 2024-11-10 04:25 | XMS_ITS ---
Author Organization [facility] Address [address] [place] [id number] Care Team Providers Care Nurses' Registry Director Name Role Phone Messi Soto Primary Care Provider [phone] Results Component Value Reference Range Notes CBC Venipuncture (in house) Reviewed date:11/15/2024 04:56:13 PM Interpretation:Normal Performing Lab: Notes/Report: Normal wbc 6.2 3.5 - 10 lymph 19.3% 15 - 50 mid 5.6% 2 - 15 gran 75.1% 35 - 80 rbc 5.70 3.5 - 5.5 hgb 16.0 11.5 - 16.5 hct 49.7 35 - 55 mcv 87.2 75 - 100 mch 28.1 25 - 35 mchc 32.3 31 - 38 platlet 132 100 - 400 P-Comprehensive Metabolic Pa edith (CMP) Reviewed date:11/15/2024 04:56:13 PM Interpretation:gluc 125, Cr 0.66 Performing Lab: Notes/Report: Test performed by [facility] , [address], [place] [address] Pedro Pablo Das MD, Tile Conduit Layer CLIA: [id number] Sodium 142 135-145 mmol/L Potassium 4.4 3.5-5.3 mmol/L Chloride 104 97-108 mmol/L CO2 26 20-32 mmol/L Glucose 125 65-99 mg/dL BUN 13 8-23 mg/dL Creatinine 0.66 0.70-1.30 mg/dL Calcium 9.3 8.6-10.4 mg/dL eGFR by Creatinine 103 >59 mL/min/1.73m2 Protein 6.4 6.0-8.3 g/dL Albumin 4.1 3.5-5.3 g/dL Alkaline Phosphatase 81 40-129 IU/L ALT (SGPT) 18 <5-55 IU/L AST (SGOT) 17 <5-46 IU/L Bilirubin, Total 0.4 <0.2-1.2 mg/dL A/G Ratio 1.8 1.1-2.5 P-Lipid Panel Reviewed date:11/15/2024 04:56:13 PM Interpretation:Normal Performing Lab: Notes/Report: Test performed by [facility], [address] , [address] , [place] [address] Pedro Pablo Das MD, Tile Con[employer]it Layer CLIA: [id number] Cholesterol 129 <200 mg/dL Triglycerides 56 <150 mg/dL HDL Cholesterol 44 >39 mg/dL Cholesterol / HDL Ratio 2.93 0.00-4.99 Ratio Non-HDL Cholesterol 85 <130 mg/dL LDL Cholesterol (Calculation) 74 <130 mg/dL LDL Cholesterol Levels* Less than [...] Results: 92 Units: mg/dL % Change: +21% Test Date: 11/10/2024 LDL Results: 74 Units: mg/dL % Change: -19% P-PSA Reviewed date:11/15/2024 04:56:13 PM Interpretation:Normal Performing Lab: Notes/Report: [facility] , [place] [address] Pedro Pablo Das MD, Tile Conduit Layer CLIA: [id number] PSA 1.58 <4.00 ng/mL Please note this is an ultrasensitive PSA assay with a lower limit of detection of 0.014 ng/mL. This test is performed by the [employer] ECLIA methodology. Values obtained with different assay methods or kits cannot be directly compared. P-TSH reflex to FT4 Reviewed date:11/15/2024 04:56:13 PM Interpretation:Normal Performing Lab: Notes/Report: Test performed by [facility] [place] , [address], [place] [address] Pedro Pablo Das MD, Tile Conduit Layer CLIA: [id number] TSH reflex to FT4 2.32 0.43-5.25 mU/L P-Microalbumin/Creatinine, R andom Urine Sample Reviewed date:11/15/2024 04:56:13 PM Interpretation:a/c 296 Performing Lab: Notes/Report: Test performed by [facility], [employer] [address] [place] [address] , [address], [place] [address] Pedro Pablo Das MD, Tile Conduit Layer CLIA: [id number] Albumin/Creatinine Ratio, Urine 296 0-30 ug/mg Microalbumin, Urine, Random 17.4 Creatinine, Urine 58.7 REASON FOR VISIT blood work Medications Medication SIG (Take, Route, Frequency, Duration) Notes Start Date End Date Status Celecoxib 200 MG 1 capsule as needed Orally Once a day Active Centrum Men - 1 tab(s) orally once a day Active Aspirin Adult Low Dose 81 MG 1 tab(s) orally once a day Active Esomeprazole Magnesium 40 MG 1 cap(s) orally once a day Active CPAP SUPPLIES DIRECTED 08/11/2016 Act norma Dymista 137-50 MCG/ACT 1 spray(s) each n ostril once daily Active Wrist Brace - as directed cock up type 09/13/2024 Active Albuterol Sulfate HFA 108 (90 Base) MCG/ACT 1 puff as needed Inhalation every 4 hrs 12/02/2022 Active Atorvastatin Calcium 20 MG 1 tablet Oral ly Once a day Active Valsartan-hydroCHLOROthiazi de 320-12.5 MG 1 tab(s) orally once a day Active Montelukast Sodium 10 MG 1 tablet Orally Once a day; Duration: 90 days Active Famotidine 40 MG 1 tab(s) orally once a day (at bedtime); Duration: 90 days Active Tamsulosin HCl 0.4 MG 1 capsule Orally O nce a day; Duration: 90 days Active Encounters Encounter Location Date Provider Diagnosis [facility] [address] [facility] [address] [place], [place] [id number] 11/10/2024 [facility] [place] Essential hypertensi on I10 ; Pure hypercholesterolemia E78.00 and Screening for prostate cancer Z12.5 Assessments Encounter Date Diagnosis (ICD Code) Assessment Notes Treatment Notes Treatment Clinical Notes Section Notes 11/10/2024 Essential hypertensi on (ICD-10 - I10) 11/10/2024 Pure hypercholesterolemia (ICD-10 - E78.00) 11/10/2024 Screening for prosta te cancer (ICD-10 - Z12.5) Plan Of Treatment Next Appt Details Provider Name:Messi Tatum ry, 05/02/2025 01:45:00 PM, [address], [address], [place], [id number], Progress Notes * Jamel FUENTESDOB:[birth year] (69 yo M)Acc No.[id number]:11/10/2024 Patient: Jamel MITCHELL Provider: Yvonne Soto M.D. :1955 A ge:69 Y S ex:Male Date:11/10/2024 Address: [address], [place], [id number] Subjective: * Chief Complaints: * 1 . Blood work. * Medical History: * Medications: T aking Celecoxib 200 MG Capsule 1 capsule as needed Orally Once a day , Taking Aspirin Adult Low Dose 81 MG Tablet Delayed Release 1 tab(s) orally once a day , Taking Centrum Men - Tablet 1 tab(s) orally once a day , Taking CPAP SUPPLIES DIRECTED , Taking Montelukast Sodium 10 MG Tablet 1 tablet Orally Once a day , Taking Tamsulosin HCl 0.4 MG Capsule 1 capsule Orally Once a day , Taking Famotidine 40 MG Tablet 1 tab(s) orally once a day (at bedtime) , Taking Dymista 137-50 MCG/ACT Suspension 1 spray(s) each nostril once daily , Taking Albuterol Sulfate HFA 108 (90 Base) MCG/ACT Aerosol Solution 1 puff as needed Inhalation every 4 hrs , Taking Wrist Brace - Miscellaneous as directed cock up type , Taking Valsartan-hydroCHLOROthiazide 320-12.5 MG Tablet 1 tab(s) orally once a day , Taking Atorvastatin Calcium 20 MG Tablet 1 tablet Orally Once a day , Taking Esomeprazole Magnesium 40 MG Capsule Delayed Release 1 cap(s) orally once a day , Medication List reviewed and reconciled with the patient Objective: * Vitals: Assessment: * Assessment: 1. E ssential hypertension - I10 (Primary) 2 . P ure hypercholesterolemia - E78.00 3 . S creening for prostate cancer - Z12.5 Plan: * Treatment: Value Reference Range A /G Ratio 1.8 1.1-2.5 - * A lbumin 4.1 3.5-5.3 - g/dL * A lkaline Phosphatase 81 40-129 - IU/L * A LT (SGPT) 18 <5-55 - IU/L * A ST (SGOT) 17 <5-46 - IU/L * B ilirubin, Total 0.4 <0.2-1.2 - mg/dL * B UN 13 8-23 - mg/dL * C alcium 9.3 8.6-10.4 - mg/dL * C hloride 104 97-108 - mmol/L * C O2 26 20-32 - mmol/L * C reatinine 0.66 L 0.70-1.30 - mg/dL * G lucose 125 H 65-99 - mg/dL * P otassium 4.4 3.5-5.3 - mmol/L * S odium 142 135-145 - mmol/L * P rotein 6.4 6.0-8.3 - g/dL * e GFR by Creatinine 103 >59 - mL/min/1.73m2 * Anna Mathew 11/15/2024 04:56 :06 PM EDT > See phone encounter ?LAB: P-Microalbumin/Creatinine, Random Urine Sample (Collection Date & Time - 11/10/2024 07:40 AM)?a/c 296* Value Reference Range A lbumin/Creatinine Ratio, Urine 296 H 0-30 - ug /mg * C reatinine, Urine 58.7 - mg/dL * M icroalbumin, Urine, Random 17.4 - mg/dL * Anna Mathew 11/15/2024 04:56 :06 PM EDT > See phone encounter ?LAB: CBC Venipuncture (in house) (Collection Date & Time - 11/10/2024)? Normal* Value Reference Range w bc 6.2 3.5 - 10 * l ymph 19.3% 15 - 50 * m id 5.6% 2 - 15 * g ran 75.1% 35 - 80 * r bc 5.70 3.5 - 5.5 * h gb 16.0 11.5 - 16.5 * h ct 49.7 35 - 55 * m cv 87.2 75 - 100 * m ch 28.1 25 - 35 * m chc 32.3 31 - 38 * p latlet 132 100 - 400 * Magi Mercado 11/10/2024 09:54: 44 AM EDT > Priyanka Anna 11/15/2024 04:56:06 PM EDT > See phone encounter 2.?Pure hypercholesterolemia?LAB: P-Lipid Panel (Collection Date & Time - 11/10/2024 07:40 AM)?Normal* Value Reference Range C holesterol / HDL Ratio 2.93 0.00-4.99 - Ratio * C holesterol 129 <200 - mg/dL * H DL Cholesterol 44 >39 - mg/dL * L DL Cholesterol (Calculation) 74 <130 - mg/d L * L DL/HDL Ratio 1.7 <3.3 - Ratio * N on-HDL Cholesterol 85 <130 - mg/dL * T riglycerides 56 <150 - mg/dL * Priyanka Anna 11/15/2024 04:56 :06 PM EDT > See phone encounter ?LAB: P-TSH reflex to FT4 (Collection Date & Time - 11/10/2024 07:40 AM)? Normal* Value Reference Range T SH reflex to FT4 2.32 0.43-5.25 - mU/L * Priyanka Anna 11/15/2024 04:56 :06 PM EDT > See phone encounter 3.?Screening for prostate cancer?LAB: P-PSA (Collection Date & Time - 11/10/2024 07:40 AM)?Normal* Value Reference Range P SA 1.58 <4.00 - ng/mL * Anna Mathew 11/15/2024 04:56 :06 PM EDT > See phone encounter * Procedure Codes: 8 5025 CBC WITH AUTO DIFF, 16665 VENIPUNCT, ROUTINE* * Images: Billing Information: * Visit Code: * Procedure Codes: 48655 CBC WITH AUTO DIFF. 81768 VENIPUNCT, ROUTINE*. * Electronic signature of Nayeli Soto MD on 03/01/2025 at 01:31 PM EDT Sign off status: Pending * Provider: Yvonne Soto M.D. Date: 0 11/10/2024 Generated for Rashaun kilgore/Rosalva/Daya on: 1 01:31 PM EDT
--- OUTSIDE RECORDS SUMMARY | 2025-02-27 07:30 | XMS_ITS ---
[facility] Address [address] [place] [phone] Care Team Providers Care [place] Supervisor Name Role Phone Messi Soto Primary Care Provider Marlee Argueta Unavailable [phone] Allergies No Known Allergies Results Component Value [...] day; Duration: 90 days Active Vital Signs Blood pressure systolic 122 mm Hg 02/28/20 25 Blood pressure diastolic 76 mm Hg 025 Heart Rate 83 /min 02/27/2025 Height 72.50 in 02/27/2025 Weight 264.4 lbs 02/27/2025 BMI 35.36 kg/m2 02/27/2025 Encounters Encounter Location Date Provider Diagnosis [facility] [address] [place], [place] [phone] 02/27/2025 Marlee Argueta Acute bronchitis J20.9 Assessments [address], [place], [phone], Progress Notes * Jamel FUENTESDOB:[birth year] (69 yo M)Acc No.[id number]:02/27/2025 Progress Notes Patient: Jamel MITCHELL Provider: BRIGETTE Mabry :1955 A ge:69 Y S ex:Male Date:02/27/2025 Address:[address], [place], [id number] Pcp:Messi Soto Subjective: * Chief Complaints: * [...] Rojas 07/2015, Heart Cath - Dr. Crystal [facility] 08/22/2015, Colonoscopy 2011, Bilateral Cataract Removal 04/2020, LT Eye Lasix 11/29/2020, Right Shoulder Replacement 03/08/2023. * Hospitalization/Major Diagno stic Procedure: Yvonne chanel Blockage- [facility] 12/21-02/2018. * Family History: F [...] Flu Test- Nasal Swab, Modifiers: QW , 44656 COVID TEST IN HOUSE, Modifiers: QW * Follow Up: p rn * Images: Billing Information: * Visit Code: 66532 Office Visit, Est Pt., Level 3. * Procedure Codes: 96348 Flu Test- Nasal Swab. Modifiers: QW 07656 COVID TEST IN HOUSE. Modifiers: QW * Electronic signature of Judy Argueta APRN on 03/01/2025 at 01:31 PM EDT Sign off status: Pending * Provider: BRIGETTE Mabry Date: Generated for Rashaun kilgore/Rosalva/eTransmitting on: 01:31 PM EDT History and Physical Notes * [...]
--- OUTSIDE RECORDS SUMMARY | 2025-03-01 13:31 | XMS_ITS | Clinical Summary ---
Author Organization Healthcare Address [address] [place] [address] Care Team Providers Care Fermentation Operator Name Role Phone Messi Soto MD Primary Care Provider [phone] Allergies No known active allergies Medications valsartan-hydro [...] SILVER 50+MEN PO) 6 Active HYDROcodone-eulalia taminophen ([place]) 5-325 MG tablet Take 1 tablet (5 [...] (AAA) Screening 2022 [facility]-Depression Screening 09/19/2023 09/18/2022 [id number] Vaccine ( season) 2025 02/23/2024, 04/06/2023, 03/18/2023, [...] this topic Medical Devices Implanted Type Area Sales Solutions Representative Device Identifier Shelf Expiration Date Model / Serial / Lot Screw Perform Reversed Peripheral 5x46mm - [id number] - [id number] Implanted:Qty: 1 on 03/08/2023 by Craig Jon MD at [facility] Screw Right: Shoulder [employer] [facility]139 168 03/05/2024 [id number] / [id number] / Screw Perform Reversed Central 6.5x35mm - [id number] - [id number] Implanted:Qty: 1 on 03/08/2023 by Craig Jon MD at [facility] Screw Right: Shoulder [employer] [facility]139 168 03/05/2024 [id number] / [id number] / Screw Perform Reversed Peripheral 5x22mm - [id number] - [id number] Implanted:Qty: 1 on 03/08/2023 by Craig Jon MD at [facility] Screw Right: Shoulder [employer] [facility]139 168 03/05/2024 [id number] / [id number] / Screw Perform Reversed Peripheral 5x34mm - [id number] - [id number] Implanted:Qty: 1 on 03/08/2023 by Craig Jon MD at [facility] Screw Right: Shoulder [employer] [facility]139 168 03/05/2024 [id number] / [id number] / Baseplate Fullwdg Augmnt Perform Rvrsd 15dg/29mm - [id number] - [id number] Implanted:Qty: 1 on 03/08/2023 by Craig Jon MD at [facility] Shoulder Right: Shoulder [employer] [facility]139 168 09/30/2027 [id number] / [id number] / [id number] Glenosphere Perform Reversed Standard 42mm - [id number] - [id number] Implanted:Qty: 1 on 03/08/2023 by Craig Jon MD at [facility] Shoulder Right: Shoulder [employer] ([employer])-139 168 03/13/2027 [id number] / [id number] / [id number] Stem Humeral Perfrom Sz 3 - [id number] - [id number] Implanted:Qty: 1 on 03/08/2023 by Craig Jon MD at [facility] Shoulder Right: Shoulder [employer] [facility]139 168 05/08/2027 [id number] / [id number] / [id number] Insert Perform Rvrsd Sz3/4 42mm/Pls 0mm - [id number] - [id number] Implanted:Qty: 1 on 03/08/2023 by Craig Jon MD at [facility] Shoulder Right: Shoulder [employer] [facility]139 168 06/15/2027 [id number] / [id number] / [id number] Cement [employer]ent - [id number] Implanted:02/15 by Craig Jon MD at [facility] (Quantity not on file) [id number] / / Cement [place]ent - [id number] Implanted:02/15 by Craig Jon MD at [facility] (Quantity not on file) [id number] / / Insurance MEDICARE [facility] Care Teams Fermentation Operator Relationship Specialty Start Date End Date Messi Soto MD [address] [place] [address] PCP - General 09/27/20
--- OUTSIDE RECORDS SUMMARY | 2025-03-01 13:32 | XMS_ITS | Patient Health Record ---
Author Organization [facility] Address [address] [place] [id number] Care Team Providers Care Investigations Director Name Role Phone Messi Soto Primary Care Provider Marlee Argueta Unavailable [phone] Allergies No Known Allergies Results Component Value Reference Range Notes CT scan : Pelvis w/ oral and IV contrast Reviewed date:05/24/2024 12:41:36 PM Interpretation:Negative Performing Lab: Notes/Report: Negative X ray : Wrist, left Reviewed date:09/15/2024 10:28:30 AM Interpretation:Abnormal Performing Lab: Notes/Report: Abnormal Influenza Screen (in house) Reviewed date:02/27/2025 01:21:28 PM Interpretation:Negative Performing Lab: Notes/Report: Negative results Neg Covid test (in house) Reviewed date:02/27/2025 01:21:45 PM Interpretation:Negative Performing Lab: Notes/Report: Negative Result: Neg P-Basic Metabolic Panel (BMP ) Reviewed date:05/02/2024 11:44:36 AM Interpretation:Satisfactory Performing Lab: Notes/Report: Test performed by [employer], [employer] , [address], [place] [address] Pedro Pablo Das MD, Merchandise Supervisor CLIA: [id number] Sodium 139 135-145 mmol/L Potassium 4.1 3.5-5.3 mmol/L Chloride 103 97-108 mmol/L CO2 26 22-32 mmol/L Glucose 117 65-99 mg/dL BUN 11 8-23 mg/dL Creatinine 0.73 0.70-1.30 mg/dL Calcium 9.4 8.6-10.4 mg/dL eGFR by Creatinine 100 >59 mL/min/1.73m2 CBC Venipuncture (in house) Reviewed date:05/02/2024 11:43:09 [...] - 38 platlet 176 100 - 400 Influenza Screen (in house) [...] PM Interpretation: Performing Lab: Notes/Report: Result: Neg MRI : Wrist, Left, without c ontrast Reviewed date:09/25/2024 11:59:26 AM Interpretation:Abnormal Performing Lab: Notes/Report: Abnormal CBC Venipuncture (in house) Reviewed date:11/15/2024 04:56:13 [...] 0.66 Performing Lab: Notes/Report: Test performed by [facility] [address] [place] [address] [address], [place] [address] Pedro Pablo Das MD, Merchandise Supervisor CLIA: [id number] Sodium 142 135-145 mmol/L Potassium 4.4 3.5-5.3 [...] Interpretation:Normal Performing Lab: Notes/Report: Test performed by [facility] [address] [place] [address] [address], [place] [address] Pedro Pablo Das MD, Merchandise Supervisor CLIA: [id number] Cholesterol 129 <200 mg/dL Triglycerides 56 <150 [...] Interpretation:Normal Performing Lab: Notes/Report: Test performed by [employer], [address] , [address], [place] [address] Pedro Pablo Das MD, Merchandise Supervisor CLIA: [id number] PSA 1.58 <4.00 ng/mL Please note this is an ultrasensitive PSA assay with a lower limit of detection of 0.014 ng/mL. This test is performed by the [employer] ECLIA methodology. Values obtained with different assay methods or kits cannot be directly compared. P-TSH reflex to FT4 Reviewed date:11/15/2024 04:56:13 PM Interpretation:Normal Performing Lab: Notes/Report: Test performed by [facility] [address] [place] [address] , [address], [place] [address] Pedro Pablo Das MD, Merchandise Supervisor CLIA: [id number] TSH reflex to FT4 2.32 0.43-5.25 mU/L P-Microalbumin/Creatinine, R andom Urine Sample Reviewed date:11/15/2024 04:56:13 PM Interpretation:a/c 296 Performing Lab: Notes/Report: Test performed by [facility] [facility] [address] [place] [address] , [address], [place] [address] Pedro Pablo Das MD, Merchandise Supervisor CLIA: [id number] Albumin/Creatinine Ratio, Urine 296 0-30 ug/mg Microalbumin, Urine, Random 17.4 Creatinine, Urine 58.[address] Reason For [address]erral Reason Dr. [place] Diagnosis 1 Osteochondrosis of l unate of left wrist (M92.212) [facility] Referring Provider First Name Messi Referring Provider Last Name Brittany Referring Provider [facility] Referred Provider Specialty Orthopedic S urgery General Notes Vy Garcia 2024 10:21:46 AM > sent referral via [facility] website Referral Priority Routine Medications Medication SIG [...] W/U Status Risk Notes Problem Essential hypertension (57556234) Essential hypertension (I10) Active confirmed Problem Sciatic nerve lesion (785416722) Piriformis syndrome of right side (G57.01) Active confirmed Problem Arthropathy of lumba r facet joint (742927656) Lumbar facet arthropathy (M47.816) Active confirmed Problem Obstructive sleep apnea (82155186) Obstructive sleep apnea (G47.33) Active confirmed Problem Anorexia (68312215) Anorexia (R63.0) Active con firmed Problem Arthropathy of cervical spine facet joint (disorder) (353898350) Facet arthropathy, cervical (M46.92) Active confirmed Problem Degeneration of cervical intervertebral disc (50419381) Degenerative disc disease, cervical (M50.30) Active confirmed Problem Degeneration of lumbar intervertebral disc (83150181) Lumbar degenerative disc disease (M51.36) Active confirmed Problem Gastroesophageal reflux disease without esophagitis (042814310) Gastroesophageal reflux disease without esophagitis (K21.9) Active confirmed Problem Bilateral tinnitus (8760220480523) Tinnitus of both ears (H93.13) Active confirmed Problem Gastroesophageal reflux disease (890048524) Gastroesophageal reflux disease, esophagitis presence not specified (K21.9) Active confirmed Problem Uncomplicated mild persistent asthma (773649150) Mild persistent asthma without complication (J45.30) Active confirmed Problem Leukocytosis (485214631) Leukocytosis, unspecified type (D72.829) Active confirmed Problem Asthma without statu s asthmaticus (52413723) Asthmatic bronchitis, unspecified asthma severity, uncomplicated (J45.909) Active confirmed Problem Snoring (19921373) History of sn oring (Z87.898) Active confirmed Problem Bifascicular block (62057476) Right BBB/left ant fasc block (I45.2) Active confirmed Problem Sciatica (59430279) Acute right- sided low back pain with right-sided sciatica (M54.41) Active confirmed Problem Sciatica (74256387) Acute left-s ided low back pain with left-sided sciatica (M54.42) Active confirmed Problem Pure hypercholesterolemia (554500536) Pure hypercholesterolemia (E78.00) Active confirmed Problem Arthritis of right knee (0641850945723307) Arthritis of right knee (M17.11) Active confirmed Problem Exacerbation of asthma (004583994) Asthmatic bronchitis with acute exacerbation, unspecified asthma severity, unspecified whether persistent (J45.901) Active confirmed Problem Allergic rhinitis (50092074) Allergic rhinitis, unspecified seasonality, unspecified trigger (J30.9) Active confirmed Problem Gastroesophageal reflux disease (269120429) Gastroesophageal reflux disease, unspecified whether esophagitis present (K21.9) Active confirmed Vital Signs Heart Rate 83 /min 02/27/2025 Blood pressure diastolic 76 mm Hg 02/27/2025 Height 72.50 in 02/27/2025 Blood pressure systolic 122 mm Hg 02/27/2025 Weight 264.4 lbs 02/27/2025 BMI 35.36 kg/m2 02/27/2025 Encounters Encounter Location Date Provider Diagnosis [facility] [address] [place], [place] [id number] 05/01/2024 Messi [place]io[place] Essential hypertensi on I10 and Rectal pain K62.89 [facility] [address] [facility] [address] [place], [place] [id number] 05/19/2024 Messi [place]io[place] Viral URI J06.9 [facility] [address] [facility] [address] [place], [place] [id number] 09/13/2024 Messi [place]io[place] Left wrist pain M25. 532 [facility] [address] [place], [place] [id number] 10/30/2024 Messi [place] Essential hypertensi on I10 ; Pure hypercholesterolemia E78.00 ; Gastroesophageal reflux disease, unspecified whether esophagitis present K21.9 ; Rheumatoid factor positive R76.8 and VIANCA positive R76.8 [facility] [address] [facility] [address] [place], [place] [id number] 11/10/2024 Messi [place] Essential hypertensi on I10 ; Pure hypercholesterolemia E78.00 and Screening for prostate cancer Z12.5 [facility] [address] [facility] [address] [place], [place] [id number] 02/27/2025 Marlee Argueta Acute bronchitis J20.9 [facility] [address] [facility] [address] [place] [id number] 05/23/2024 Messi [place]io[place] [address] [facility] [address] [place] [id number] 06/20/2024 Messi [place] Essential hypertensi on I10 ; Allergic rhinitis, unspecified seasonality, unspecified trigger J30.9 ; Mild persistent asthma without complication J45.30 and Pure hypercholesterolemia E78.00 [facility] [address] [place] [id number] 09/15/2024 Messi [place] Left wrist pain M25. 532 and Closed displaced fracture of lunate of left wrist, initial encounter S62.122A [facility] [address] [address] [place] [id number] 09/25/2024 Messi [place]io[place] Osteochondrosis of l unate of left wrist M92.212 ; Wrist tendonitis M77.8 and Left wrist pain M25.532 [facility] [address] [place] [id number] 11/15/2024 [facility] [address] [place] [id number] 12/18/2024 Messi [place] Assessments Encounter Date Diagnosis (ICD Code) Assessment [...] wrist, initial encounter (ICD-10 - S62.122A) 09/25/2024 Osteochondrosis of lunate of left wrist (ICD-10 - M92.212) 09/25/2024 Wrist tendonitis (ICD-10 - M77.8) 10/30/2024 Essential hypertensi on (ICD-10 - I10) 10/30/2024 Pure hypercholesterolemia (ICD-10 - E78.00) 11/10/2024 Essential hypertensi on (ICD-10 - I10) 11/10/2024 Pure hypercholesterolemia (ICD-10 - E78.00) 02/27/2025 Acute bronchitis (ICD-10 - J20.9) no physical work; fluids, rest, supportive measures for fever/symptom relief 10/30/2024 Gastroesophageal ref lux disease, unspecified whether esophagitis present (ICD-10 - K21.9) 09/25/2024 Left wrist pain (ICD -10 - M25.532) 06/20/2024 Allergic rhinitis, unspecified seasonality, unspecified trigger (ICD-10 - J30.9) 06/20/2024 Mild persistent asth ma without complication (ICD-10 - J45.30) 10/30/2024 Rheumatoid factor positive (ICD-10 - R76.8) 11/10/2024 Screening for prosta te cancer (ICD-10 - Z12.5) 10/30/2024 VIANCA positive (ICD-10 - R76.8) 06/20/2024 Pure hypercholesterolemia (ICD-10 - E78.00) 10/30/2024 Other Patient will return to the office after 11/09 for the following fasting labs: CBC, CMP, Lipid, TSH with reflex to free T4, urine Microalbumin/c r and PSA Plan Of Treatment Next Appt Details Provider Name:Messi nazario, 05/02/2025 01:45:00 PM, [address], [address], [place], [place], [id number], Insurance Providers Payer Name Payer Address Payer Phone Subscriber Number Group Number Insured Name Patient Relationship to Insured Coverage Start Date Coverage End Date MEDICARE PART B [place] [address] [place] [address] [id number] Jamel Fuentes Self - patient is the insured [employer] [address] [id number] Jamel Fuentes Self - patient is [...] 07/16 016 Heart Cath - Dr. Rojas [facility]3] ospital 08/22/2015 Colonoscopy 2011 Bilateral Cataract Removal 04/2020 LT Eye Lasix 11/29/2020 Right Shoulder Replacement 03/08/2023 Hospitalization History Reason Date(Month/Year) Bowel Blockage- [facility] 12/21-02/2018
--- NOTE | 2025-03-01 13:45 | MR_ITS ---
FINAL REPORT CLINICAL HISTORY: Fistula protocol, concern for anal fistual, bloody stool COMPARISON: CT pelvis 05/19/2024 FINDINGS: Multiplanar MR imaging of the pelvis was performed before and after the administration of IV contrast. There is a small T2 hyperintense collection posterior to the anus at approximately the 6 o'clock position. On T2 weighted axial imaging this measures 11 mm. There is a very small tract leading to the posterior anal wall at the 6 o'clock position. Linear tract also extends inferiorly along the medial aspect of the left gluteal fold and appears to exit the skin along the medial aspect of the left gluteal fold. This fistula is likely intersphincteric. No surrounding inflammatory signal is seen in the ischioanal fossa. No other tracts are identified. Limited evaluation of the lower pelvis shows mildly enlarged prostate. No visualized lymphadenopathy. There is a high-grade partial tear of the left common hamstring tendon from the ischial tuberosity. The remaining soft tissues are without acute abnormality. 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 Small associated abscess and tract leading to the medial aspect of the left gluteal fold. Reviewed, Interpreted and Dictated by Eden Lenz MD Transcribed by June Dietrich Authenticated and [facility]
[2025-03-01] MEDS: GADOTERIDOL INJ 10ML SYRINGE 4 ML IV (14:40)
[2025-03-01] MEDS: GADOTERIDOL INJ 20ML SYRINGE 20 ML IV (14:40)
== END 2025-03-01 23:59 | disposition home or self-care (01) ==
LOC: RAD 13:28
PROVIDERS: PCP Family Medicine; Visit Provider Surgery
DX: K61.0 Anal abscess (principal); L29.0 Pruritus ani
CPT/HCPCS: 72197; A9576

== ENCOUNTER 2025-03-13 09:43 | Outpatient (CLI) | payer MEDICARE, OTHER, SELFPAY ==
--- OUTSIDE RECORDS SUMMARY | 2023-11-01 09:45 | XMS_ITS ---
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 Referred Provider Specialty ENT General Notes Vy Garcia 11/01/19 24 2:39:50 PM > referral faxed to [facility] ENT Referral Priority Routine REASON FOR VISIT 6 months Medications Medication SIG (Take, Route, Frequency, Duration) Notes Start Date End Date Status Dymista 137-50 MCG/ACT 1 spray(s) each n ostril once daily Active Valsartan-hydroCHLOROthiazi de 320-12.5 MG 1 tab(s) orally once a day Active Tamsulosin HCl 0.4 MG 1 cap(s) orally on ce a day; Duration: 90 days Active Esomeprazole Magnesium 40 MG 1 cap(s) orally once a day Active Atorvastatin Calcium 20 MG 1 tablet Oral ly Once a day Active Montelukast Sodium 10 MG 1 tab(s) orally once a day; Duration: 90 days Active Celecoxib 200 MG 1 cap(s) orally once every other day Active Albuterol Sulfate HFA 108 (90 Base) MCG/ACT 1 puff as needed Inhalation every 4 hrs 12/02/2022 Active Famotidine 40 MG 1 tab(s) orally once a day (at bedtime); Duration: 90 days Active CPAP SUPPLIES DIRECTED 08/11/2016 Act norma Aspirin Adult Low Dose 81 MG 1 tab(s) orally once a day Active Breo Ellipta 200-25 MCG/ACT 1 puff(s) in haled once a day; Duration: 90 days Active Fish Oil 1000 MG 2 cap(s) orally once daily Active OSTEO-BIFLEX 1 TAB(S) ORALLY BID Active Centrum Men - 1 tab(s) orally once a day Active Vital Signs Weight 254.6 lbs 11/01/2023 Blood pressure systolic 100 mm Hg 11/01/19 24 Blood pressure diastolic 64 mm Hg 024 Heart Rate 79 /min 11/01/2023 Height 72.50 in 11/01/2023 BMI 34.05 kg/m2 11/01/2023 Encounters Encounter Location Date Provider Diagnosis [facility] [address] [facility] [address] [place] [address], [place] [id number] 11/01/2023 Messi Soto Essential hypertensi on I10 ; Pure hypercholesterolemia E78.00 ; Gastroesophageal reflux disease, unspecified whether esophagitis present K21.9 ; Allergic rhinitis, unspecified seasonality, unspecified trigger J30.9 ; Prostate cancer screening Z12.5 and 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 Assessments Encounter Date Diagnosis (ICD Code) Assessment Notes Treatment Notes Treatment Clinical Notes Section Notes 11/01/2023 Essential hypertensi on (ICD-10 - I10) 11/01/2023 Pure hypercholesterolemia (ICD-10 - E78.00) 11/01/2023 Gastroesophageal ref lux disease, unspecified whether esophagitis present (ICD-10 - K21.9) 11/01/2023 Allergic rhinitis, unspecified seasonality, unspecified trigger (ICD-10 - J30.9) 11/01/2023 Prostate cancer screening (ICD-10 - Z12.5) 11/01/2023 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) 11/01/2023 Other Patient will return next week when fasting for a CMP, Lipid, TSH with reflex, urine Microalbumin /creat and PSA Plan Of Treatment Medication Medication Name Sig Start Date Stop Date Notes Dymista 137-50 MCG/ACT 1 spray(s) each n ostril once daily Valsartan-hydroCHLOROthiazid e 320-12.5 MG 1 tab(s) orally once a day Esomeprazole Magnesium 40 MG 1 cap(s) orally once a day Atorvastatin Calcium 20 MG 1 tablet Orally Once a day Treatment Notes Assessment Notes Other Patient will return next week when fasting for a CMP, Lipid, TSH with reflex, urine Microalbumin/creat and PSA Referrals Referral Date Details 11/01/2023 11/01/2023, [facility], no MD pref, . ENT Next Appt Details Follow Up: 6 Months, Reason: Provider Name:Messi Tatum , 05/02/2025 01:45:00 PM, [address], [address], [place], [place], [id number], Progress Notes * Jamel FU[birth year]ESDOB:[birth year] (69 yo M)Acc No.[id number]:11/01/2023 Progress Notes Patient: Jamel MITCHELL Provider: Yvonne Soto M.D. :1955 A ge:68 Y S ex:Male Date:11/01/2023 [facility] [facility] [id number] Subjective: * Chief Complaints: * 1 . 6 months. * HPI: E ndocrinology: Maintenance P t presents today for a 6 month check up. Pt is not fasting today. D ermatology: skin lesion P t sts that he went to the dentist last week and the Dr. Doan noticed a white spot on his lip. A llergy/Asthma: Pt sts that he was prescribed Singulair for seasonal allergies but sts that it is not working. * ROS: D ERMATOLOGY: no R aleksandar. n o H donnie. G ASTROENTEROLOGY: no N ausea. n o V omiting. U ROLOGY: no D ifficulty urinating. n o B lood in urine. * Medical History: H ypertension, Esophageal Reflux, Allergic Rhinitis, Hemorrhoids, Normal left heart cath August 2015, sleep apnea, Dx: 2016, Asthma, Osteoarthritis knees, s/p ortho evaluation 2019, tinnitus, s/p ENT evaluation 2019, Metatarsus Adductus, bilateral feet. * Surgical History: T onsillectomy 1964, Umbilical Hernia Repair 2010, EGD - 07/2015, Stress Test and Echo - Dr. Rojas 07/2015, Heart Cath - Dr. Rojas - [facility] 08/22/2015, Colonoscopy 2011, Bilateral Cataract Removal 04/2020, LT Eye Lasix 11/29/2020, Right Shoulder Replacement 03/08/2023. * Hospitalization/Major Diagno stic Procedure: B owel Blockage- [facility] 12/21-02/2018. * Family History: F ather: alive, hypertension, stomach tumor. M other: alive, hypertension, kidney tumor.?3 brother(s) , 1 sister(s) . 1 son(s) , 1 daughter(s) - healthy. . * Social History: C URRENT TOBACCO USE S moking Status: Patient does NOT smoke. C affeine: yes, frequency:cofee. Exercise: yes. Marital Status: . Past smoking status: no. Recreational drug use: no. Alcohol: Yes, frequency: daily. * Medications: T aking Aspirin Adult Low Dose 81 MG Tablet Delayed Release 1 tab(s) orally once a day , Taking Centrum Men - Tablet 1 tab(s) orally once a day , Taking OSTEO-BIFLEX 1 TAB(S) ORALLY BID , Taking Fish Oil 1000 MG Capsule 2 cap(s) orally once daily , Taking Breo Ellipta 200-25 MCG/ACT Aerosol Powder Breath Activated 1 puff(s) inhaled once a day , Taking CPAP SUPPLIES DIRECTED , Taking Famotidine 40 MG Tablet 1 tab(s) orally once a day (at bedtime) , Taking Albuterol Sulfate HFA 108 (90 Base) MCG/ACT Aerosol Solution 1 puff as needed Inhalation every 4 hrs , Taking Celecoxib 200 MG Capsule 1 cap(s) orally once every other day , Taking Valsartan-hydroCHLOROthiazide 320-12.5 MG Tablet 1 tab(s) orally once a day , Taking Montelukast Sodium 10 MG Tablet 1 tab(s) orally once a day , Taking Esomeprazole Magnesium 40 MG Capsule Delayed Release 1 cap(s) orally once a day , Taking Tamsulosin HCl 0.4 MG Capsule 1 cap(s) orally once a day , Taking Atorvastatin Calcium 20 MG Tablet 1 tablet Orally Once a day , Not-Taking Dymista 137-50 MCG/ACT Suspension 1 spray(s) each nostril once daily , Medication List reviewed and reconciled with the patient * Allergies: N .K.D.A. Objective: * Vitals: W t:254.6, Temp:98.0, BP:100/64, HR:79, Nurse:CHELO, Ht: 72.50, BMI:34.05. * Examination: E ndocrinology: General Appearance: N AD. H EENT: r ight side of lower lip with a 3 mm white patch of mucosa. H eart: R SR. L ungs: c lear to auscultation. E xtremities: n o leg edema. S kin: n ormal, no rash. N eurologic Exam:?Intact, gait normal. Assessment: * Assessment: 1. E ssential hypertension - I10 (Primary) 2 . P ure hypercholesterolemia - E78.00 3 . G astroesophageal reflux disease, unspecified whether esophagitis present - K21.9 4 . A llergic rhinitis, unspecified seasonality, unspecified trigger - J30.9 5 . P rostate cancer screening - Z12.5 6 . 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 P ure hypercholesterolemia Continue Atorvastatin Calcium Tablet, 20 MG, 1 tablet, Orally, Once a day. 3. G astroesophageal reflux disease, unspecified whether esophagitis present Continue Esomeprazole Magnesium Capsule Delayed Release, 40 MG, 1 cap(s), orally, once a day. ? 4. A llergic rhinitis, unspecified seasonality, unspecified trigger Resume Dymista Suspension, 137-50 MCG/ACT, 1 spray(s), each nostril, once daily. 5. N eoplasm of uncertain behavior of lip Referral To:. ENT ENT Reason:H, no MD pref 6. O thers Notes: Patient will return next week when fasting for a CMP, Lipid, TSH with reflex, urine Microalbumin/creat and PSA * Procedure Codes: G 2211 Complex e/m visit add on * Follow Up: 6 Months * Images: Billing Information: * Visit Code: 52364 Office Visit, Est Pt., Level 4. * Procedure Codes: G2211 Complex e/m visit add on. * Electronic signature of Nayeli Soto MD on 03/13/2025 at 09:58 AM EDT Sign off status: Pending * Provider: Yvonne Soto M.D. Date: 0 11/01/2023 Generated for Printi ng/Faxing/eTransmitting on: 1 09:58 AM EDT History and Physical Notes * HPI (History of Present Illness) Category Sub-Category Detail Notes Category Not es Dermatology skin lesion Pt sts that he w ent to the dentist last week and the Dr. Doan noticed a white spot on his lip Endocrinology [facility]. Pt is not fasting today Examination Category Sub-Category Detail Notes Category Not es Endocrinology HEENT: right side of lo wer lip with a 3 mm white patch of mucosa Heart: RSR Lungs: clear to auscultatio n Extremities: no leg edema General Appearance: NAD Skin: normal, no rash Neurologic Exam: Intact, gait normal Consultation Request Notes Referral Date Referring Provider Referred Provider Not es 11/01/2023 Messi Soto ENT, . [facility], no p ref
--- OUTSIDE RECORDS SUMMARY | 2023-11-09 04:45 | XMS_ITS ---
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 Name Role Phone Messi Soto Primary Care Provider Results Component Value Reference Range Notes P-Comprehensive Metabolic Pa edith (CMP) Reviewed date:11/10/2023 01:37:54 PM Interpretation:gluc 114 Performing Lab: Notes/Report: Test performed by [facility], [facility] [address] [place] [address] , [address], [place] [address] Pedro Pablo Das MD, [employer] CLIA: [id number] Sodium 141 135-145 mmol/L Potassium 4.1 3.5-5.3 mmol/L Chloride 104 97-108 mmol/L CO2 23 22-32 mmol/L Glucose 114 65-99 mg/dL BUN 12 8-23 mg/dL Creatinine 0.72 0.70-1.30 mg/dL Calcium 9.6 8.6-10.4 mg/dL eGFR by Creatinine 101 >59 mL/min/1.73m2 Protein 6.8 6.0-8.3 g/dL Albumin 4.3 3.5-5.3 g/dL Alkaline Phosphatase 93 40-129 IU/L ALT (SGPT) 17 <5-55 IU/L AST (SGOT) 22 <5-46 IU/L Bilirubin, Total 0.7 <0.2-1.2 mg/dL A/G Ratio 1.7 1.1-2.5 mg/dL P-Lipid Panel Reviewed date:11/10/2023 01:37:54 PM Interpretation:Normal Performing Lab: Notes/Report: Test performed by [facility], [address], [place] [address] Pedro Pablo Das MD, [employer] CLIA: [id number] Cholesterol 160 <200 mg/dL Triglycerides 77 <150 mg/dL HDL Cholesterol 53 >39 mg/dL Cholesterol / HDL Ratio 3.02 0.00-4.99 Ratio Non-HDL Cholesterol 107 <130 mg/dL LDL Cholesterol (Calculation) 92 <130 mg/dL LDL Cholesterol Levels* Less than 100 mg/dL Optimal 100 to 129 mg/dL Near Optimal/ Above Optimal 130 to 159 mg/dL Borderline High 160 to 189 mg/dL High 190 mg/dL and above Very High * Categories as recommended by the 2004 ATPIII guidelines LDL/HDL Ratio 1.7 <3.3 Ratio LDL Cholesterol Patient History Test Date: 11/05/2022 LDL Results: 76 Units: mg/dL % Change: - Test Date: 11/09/2023 LDL Results: 92 Units: mg/dL % Change: +21% P-PSA Reviewed date:11/10/2023 01:37:55 PM Interpretation:Normal Performing Lab: Notes/Report: Test performed by [facility] [address] [place] [address] , [facility], [place] [address] Pedro Pablo Das MD, [employer] CLIA: [id number] PSA 1.11 <4.00 ng/mL Please note this is an ultrasensitive PSA assay with a lower limit of detection of 0.014 ng/mL. This test is performed by the [employer] ECLIA methodology. Values obtained with different assay methods or kits cannot be directly compared. P-TSH reflex to FT4 Reviewed date:11/10/2023 01:37:55 PM Interpretation:Normal Performing Lab: Notes/Report: Test performed by [facility] [address] , [place] [address] Pedro Pablo Das MD, [employer] CLIA: [id number] TSH reflex to FT4 2.83 0.43-5.25 mU/L P-Microalbumin/Creatinine, R andom Urine Sample Reviewed date:11/10/2023 01:37:55 PM Interpretation:a/c 302 Performing Lab: Notes/Report: Test performed by [facility] [address] , [place] [address] Pedro Pablo Das MD, [employer] CLIA: [id number] Albumin/Creatinine Ratio, Urine 302 0-30 ug/mg Microalbumin, Urine, Random 18.1 Creatinine, Urine 59.9 REASON FOR VISIT blood work Medications Medication SIG (Take, Route, Frequency, Duration) Notes Start Date End Date Status Dymista 137-50 MCG/ACT 1 spray(s) each n ostril once daily Active Esomeprazole Magnesium 40 MG 1 cap(s) orally once a day Active Atorvastatin Calcium 20 MG 1 tablet Oral ly Once a day Active Valsartan-hydroCHLOROthiazi de 320-12.5 MG 1 tab(s) orally once a day Active Tamsulosin HCl 0.4 MG 1 cap(s) orally on ce a day; Duration: 90 days Active Celecoxib 200 MG 1 cap(s) orally once every other day Active Albuterol Sulfate HFA 108 (90 Base) MCG/ACT 1 puff as needed Inhalation every 4 hrs 12/02/2022 Active Famotidine 40 MG 1 tab(s) orally once a day (at bedtime); Duration: 90 days Active CPAP SUPPLIES DIRECTED 08/11/2016 Act norma Montelukast Sodium 10 MG 1 tab(s) orally once a day; Duration: 90 days Active Breo Ellipta 200-25 MCG/ACT 1 puff(s) in haled once a day; Duration: 90 days Active Fish Oil 1000 MG 2 cap(s) orally once daily Active OSTEO-BIFLEX 1 TAB(S) ORALLY BID Active Centrum Men - 1 tab(s) orally once a day Active Aspirin Adult Low Dose 81 MG 1 tab(s) orally once a day Active Encounters Encounter Location Date Provider Diagnosis [facility] [address] [facility] [address] [facility] [address] [place], [place] [id number] 11/09/2023 Messi Soto Essential hypertensi on I10 ; Pure hypercholesterolemia E78.00 and Prostate cancer screening Z12.5 Assessments Encounter Date Diagnosis (ICD Code) Assessment Notes Treatment Notes Treatment Clinical Notes Section Notes 11/09/2023 Essential hypertensi on (ICD-10 - I10) 11/09/2023 Pure hypercholesterolemia (ICD-10 - E78.00) 11/09/2023 Prostate cancer screening (ICD-10 - Z12.5) Plan Of Treatment Next Appt Details Provider Name:Messi Tatum ry, 05/02/2025 01:45:00 PM, [address] [facility] [address] [facility], [address], [place], [phone], Progress Notes * Jamel FUENTESDOB:[birth year] (69 yo M)Acc No.[id number]:11/09/2023 Patient: Jamel MITCHELL Provider: Yvonne Soto M.D. :1955 A ge:68 Y S ex:Male Date:11/09/2023 Address: [address], [id number] Subjective: * Chief Complaints: * 1 . Blood work. * Medical History: * Medications: T aking Aspirin Adult Low [...] orally once every other day , Taking Montelukast Sodium 10 MG Tablet 1 tab(s) orally once a day , Taking Tamsulosin HCl 0.4 MG Capsule 1 cap(s) orally once a day , Taking Valsartan-hydroCHLOROthiazide 320-12.5 MG Tablet 1 tab(s) orally once a day , Taking Atorvastatin Calcium 20 MG Tablet 1 tablet Orally Once a day , Taking Esomeprazole Magnesium 40 MG Capsule Delayed Release 1 cap(s) orally once a day , Taking Dymista 137-50 MCG/ACT Suspension 1 spray(s) each nostril once daily , Medication List reviewed and reconciled with the patient Objective: * Vitals: Assessment: * Assessment: 1. E ssential hypertension - I10 (Primary) 2 . P ure hypercholesterolemia - E78.00 3 . P rostate cancer screening - Z12.5 Plan: * Treatment: Value Reference Range A /G Ratio 1.7 1.1-2.5 - mg/dL * A lbumin 4.3 3.5-5.3 - g/dL * A lkaline Phosphatase 93 40-129 - IU/L * A LT (SGPT) 17 <5-55 - IU/L * A ST (SGOT) 22 <5-46 - IU/L * B ilirubin, Total 0.7 <0.2-1.2 - mg/dL * B UN 12 8-23 - mg/dL * C alcium 9.6 8.6-10.4 - mg/dL * C hloride 104 97-108 - mmol/L * C O2 23 22-32 - mmol/L * C reatinine 0.72 0.70-1.30 - mg/dL * G lucose 114 H 65-99 - mg/dL * P otassium 4.1 3.5-5.3 - mmol/L * S odium 141 135-145 - mmol/L * P rotein 6.8 6.0-8.3 - g/dL * e GFR by Creatinine 101 >59 - mL/min/1.73m2 * Haley Hammond 11/10/2023 1:36 :30 PM >See phone encounter ?LAB: P-Microalbumin/Creatinine, Random Urine Sample (Collection Date & Time - 11/09/2023 09:25 AM)?a/c 302* Value Reference Range A lbumin/Creatinine Ratio, Urine 302 H 0-30 - ug /mg * C reatinine, Urine 59.9 - mg/dL * M icroalbumin, Urine, Random 18.1 - mg/dL * Haley Hammond 11/10/2023 1:36 :30 PM >See phone encounter 2.?Pure hypercholesterolemia?LAB: P-Lipid Panel (Collection Date & Time - 11/09/2023 09:25 AM)?Normal* Value Reference Range C holesterol / HDL Ratio 3.02 0.00-4.99 - Ratio * C holesterol 160 <200 - mg/dL * H DL Cholesterol 53 >39 - mg/dL * L DL Cholesterol (Calculation) 92 <130 - mg/d L * L DL/HDL Ratio 1.7 <3.3 - Ratio * N on-HDL Cholesterol 107 <130 - mg/dL * T riglycerides 77 <150 - mg/dL * Haley Hammond 11/10/2023 1:36 :30 PM >See phone encounter ?LAB: P-TSH reflex to FT4 (Collection Date & Time - 11/09/2023 09:25 AM)? Normal* Value Reference Range T SH reflex to FT4 2.83 0.43-5.25 - mU/L * Haley Hammond 11/10/2023 1:36 :30 PM >See phone encounter 3.?Prostate cancer screening?LAB: P-PSA (Collection Date & Time - 11/09/2023 09:25 AM)?Normal* Value Reference Range P SA 1.11 <4.00 - ng/mL * Haley Hammond 11/10/2023 1:36 :30 PM >See phone encounter * Images: Billing Information: * Visit Code: * Procedure Codes: * Electronic signature of Nayeli Soto MD on 03/13/2025 at 09:59 AM EDT Sign off status: Pending * Provider: Yvonne Soto M.D. Date: 0 11/09/2023 Generated for Rashaun kilgore/Rosalva/eTransmitting on: 1 09:59 AM EDT
--- OUTSIDE RECORDS SUMMARY | 2024-05-01 09:45 | XMS_ITS ---
Author Organization [facility] Address [address] [place] [id number] Care Team Providers Care Logger Name Role Phone Messi Soto Primary Care Provider Allergies No Known Allergies Results Component Value Reference Range Notes CBC Venipuncture (in house) Reviewed date:05/02/2024 11:43:09 AM Interpretation: Performing Lab: Notes/Report: wbc 7.2 3.5 - 10 lymph 23.8 15 - 50 mid 6.1 2 - 15 gran 70.1 35 - 80 rbc 5.30 3.5 - 5.5 hgb 14.4 11.5 - 16.5 hct 44.6 35 - 55 mcv 84.2 75 - 100 mch 27.3 25 - 35 mchc 32.4 31 - 38 platlet 176 100 - 400 P-Basic Metabolic Panel (BMP ) Reviewed date:05/02/2024 11:44:36 AM Interpretation:Satisfactory Performing Lab: Notes/Report: Test performed by [email or web address] [address] [place] [address] , [address], [place] [address] Pedro Pablo Das MD, Recruiter Manager CLIA: [id number] Sodium 139 135-145 mmol/L Potassium 4.1 3.5-5.3 mmol/L Chloride 103 97-108 mmol/L CO2 26 22-32 mmol/L Glucose 117 65-99 mg/dL BUN 11 8-23 mg/dL Creatinine 0.73 0.70-1.30 mg/dL Calcium 9.4 8.6-10.4 mg/dL eGFR by Creatinine 100 >59 mL/min/1.73m2 CT scan : Pelvis w/ oral and IV contrast Reviewed date:05/24/2024 12:41:36 PM Interpretation:Negative Performing Lab: Notes/Report: Negative REASON FOR VISIT 6 month check Medications Medication SIG (Take, Route, Frequency, Duration) Notes Start Date End Date Status Famotidine 40 MG 1 tab(s) orally once a day (at bedtime); Duration: 90 days Active Aspirin Adult Low Dose 81 MG 1 tab(s) orally once a day Active Esomeprazole Magnesium 40 MG 1 cap(s) orally once a day; Duration: 90 days Active Tamsulosin HCl 0.4 MG 1 cap(s) orally on ce a day; Duration: 90 days Active Atorvastatin Calcium 20 MG 1 tablet Oral ly Once a day; Duration: 90 days Active CPAP SUPPLIES DIRECTED 08/11/2016 Act norma Montelukast Sodium 10 MG 1 tab(s) orally once a day; Duration: 90 days Active Dymista 137-50 MCG/ACT 1 spray(s) each n ostril once daily Active Albuterol Sulfate HFA 108 (90 Base) MCG/ACT 1 puff as needed Inhalation every 4 hrs 12/02/2022 Active Centrum Men - 1 tab(s) orally once a day Active Valsartan-hydroCHLOROthiazi de 320-12.5 MG 1 tab(s) orally once a day Active Fish Oil 1000 MG 2 cap(s) orally once daily Active OSTEO-BIFLEX 1 TAB(S) ORALLY BID Active Vital Signs Weight 259.2 lbs 05/01/2024 Blood pressure systolic 120 mm Hg 05/01/20 24 Blood pressure diastolic 78 mm Hg 024 Heart Rate 80 /min 05/01/2024 Height 72.50 in 05/01/2024 BMI 34.67 kg/m2 05/01/2024 Encounters Encounter Location Date Provider Diagnosis [facility] [address] [facility] [address] [place], [place] [id number] 05/01/2024 Messi Palmer Essential hypertensi on I10 and Rectal pain K62.89 Assessments Encounter Date Diagnosis (ICD Code) Assessment Notes Treatment Notes Treatment Clinical Notes Section Notes 05/01/2024 Essential hypertension (ICD-10 - I10) 05/01/2024 Rectal pain (ICD-10 - K62.89) Plan Of Treatment Medication Medication Name Sig Start Date Stop Date Notes Valsartan-hydroCHLOROthiazid e 320-12.5 MG 1 tab(s) orally once a day Next Appt Details Follow Up: via phone to repo rt test results, Reason: Provider Name:Messi Tatum ry, 05/02/2025 01:45:00 PM, [address], [address], [place], [place], [phone], Progress Notes * Jamel FU[birth year]ESDOB:[birth year] (69 yo M)Acc No.[id number]:05/01/2024 Progress Notes Patient: Jamel MITCHELL Provider: Yvonne Soto M.D. :1955 A ge:68 Y S ex:Male Date:05/01/2024 Address:[address] [place], [place] [id number] Subjective: * Chief Complaints: * 1 . 6 month check. * HPI: C ardiology: 68 year old male presents with c/o Blood Pressure Elevated P t here for 6 mo f/u on hypertension, states he is doing well and does not have any concerns. c/o Hyperlipidemia P t is not fasting today. * ROS: D ERMATOLOGY: no R aleksandar. n o H donnie. G ASTROENTEROLOGY: Positive for r ectal pain that is similar to the pain he had with previous perirectal abscess that required surgery. n o N ausea. n o V omiting. U ROLOGY: no D ifficulty urinating. n o B lood in urine. * Medical History: H ypertension, Esophageal Reflux, Allergic Rhinitis, Hemorrhoids, Normal left heart cath August 2015, sleep apnea, Dx: 2016, Asthma, Osteoarthritis knees, s/p ortho evaluation 2018, tinnitus, s/p ENT evaluation 2018, Metatarsus Adductus, bilateral feet. * Surgical History: T onsillectomy 1963, Umbilical Hernia Repair 2010, EGD - 07/2015, Stress Test and Echo - Dr. Rojas 07/2015, Heart Cath - Dr. [facility] 08/22/2015, Colonoscopy 2011, Bilateral Cataract Removal 04/2020, LT Eye Lasix 11/29/2020, Right Shoulder Replacement 03/08/2023. * Hospitalization/Major Diagno stic Procedure: Yvonne chanel Kady- [facility] 12/21-02/2018. * Family History: F ather: [...] 2 cap(s) orally once daily , Taking CPAP SUPPLIES DIRECTED , Taking Albuterol Sulfate HFA 108 (90 Base) MCG/ACT Aerosol Solution 1 puff as needed Inhalation every 4 hrs , Taking Dymista 137-50 MCG/ACT Suspension 1 spray(s) each nostril once daily , Taking Montelukast Sodium 10 MG Tablet 1 tab(s) orally once a day , Taking Tamsulosin HCl 0.4 MG Capsule 1 cap(s) orally once a day , Taking Esomeprazole Magnesium 40 MG Capsule Delayed Release 1 cap(s) orally once a day , Taking Famotidine 40 MG Tablet 1 tab(s) orally once a day (at bedtime) , Taking Valsartan-hydroCHLOROthiazide 320-12.5 MG Tablet 1 tab(s) orally once a day , Taking Atorvastatin Calcium 20 MG Tablet 1 tablet Orally Once a day , Discontinued Breo Ellipta 200-25 MCG/ACT Aerosol Powder Breath Activated 1 puff(s) inhaled once a day , Discontinued Celecoxib 200 MG Capsule 1 cap(s) orally once every other day , Medication List reviewed and reconciled with the patient * Allergies: N .K.D.A. Objective: * Vitals: W t:259.2, Temp:98.2, BP:120/78, HR:80, Nurse:kk, Ht: 72.50, BMI:34.67. * Examination: G eneral Examination: General Appearance: N AD. H eart: R SR. L ungs:?clear to auscultation. E xtremities: n o leg edema. Assessment: * Assessment: 1. E ssential hypertension - I10 (Primary) 2 . R ectal pain - K62.89 ? Plan: * Treatment: 2. R ectal pain L AB: P-Basic Metabolic Panel (BMP) (Collection Date & Time - 05/01/2024 12:58 PM) S atisfactory Value Reference Range B UN 11 8-23 - mg/dL * C alcium 9.4 8.6-10.4 - mg/dL * C hloride 103 97-108 - mmol/L * C O2 26 22-32 - mmol/L * C reatinine 0.73 0.70-1.30 - mg/dL * G lucose 117 H 65-99 - mg/dL * P otassium 4.1 3.5-5.3 - mmol/L * S odium 139 135-145 - mmol/L * e GFR by Creatinine 100 >59 - mL/min/1.73m2 * Maig Mercado 05/02/2024 11:44: 29 AM > Pt informed ?LAB: CBC Venipuncture (in house) (Collection Date & Time - 05/01/2024)* Value Reference Range w bc 7.2 3.5 - 10 * l ymph 23.8 15 - 50 * m id 6.1 2 - 15 * g ran 70.1 35 - 80 * r bc 5.30 3.5 - 5.5 * h gb 14.4 11.5 - 16.5 * h ct 44.6 35 - 55 * m cv 84.2 75 - 100 * m ch 27.3 25 - 35 * m chc 32.4 31 - 38 * p latlet 176 100 - 400 * fOe Castaneda 05/01/2024 2:09 :42 PM >Magi Mercado 05/02/2024 11:41:48 AM > Pt informed ?Imaging: CT scan : Pelvis w/ oral and IV contrast (Performed Date - 05/19/2024)?Negative* Vy Garcia 05/02/2024 8:50 :23 AM > no auth required from secondary to MCR; CPT code 85058; faxed to [facility] TerenceNichole cordero 05/02/2024 10:39:04 AM > 05/19/24 @9amKingMagi 05/24/2024 12:39:51 PM > LM for pt to return call,Magi 05/24/2024 12:41:24 PM > Pt informed * Procedure Codes: G 2211 Complex e/[place], [address] CBC WITH AUTO DIFF * Follow Up: v ia phone to report test results * Images: Billing Information: * Visit Code: 26777 Office Visit, Est Pt., Level 3. * Procedure Codes: G2211 Complex e/[place]. [address] CBC WITH AUTO DIFF. * Electronic signature of Nayeli Soto MD on 03/13/2025 at 09:59 AM EDT Sign off status: Pending * Provider: Yvonne Soto M.D. Date: 1 07/02/2023 Generated for Rashaun kilgore/Rosalva/eTransmitting on: 09:59 AM EDT History and Physical Notes * HPI (History of Present Illness) Category Sub-Category Detail Notes Category Not es Cardiology Blood Pressure Elevated Pt here for 6 mo f/u on hypertension, states he is doing well and does not have any concerns Hyperlipidemia Pt is not fasting to day Examination Category Sub-Category Detail Notes Category Not es General Examination Heart: RSR Lungs: clear to auscultatio n Extremities: no leg edema General Appearance: NAD
--- OUTSIDE RECORDS SUMMARY | 2024-05-19 09:30 | XMS_ITS ---
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 Name Role Phone Messi Soto Primary Care Provider Allergies No Known Allergies Results Component Value Reference Range Notes Influenza Screen (in house) Reviewed date:05/19/2024 03:23:18 PM Interpretation: Performing Lab: Notes/Report: results Neg CBC Fingerstick (in house) Reviewed date:05/19/2024 03:23:10 PM Interpretation: Performing Lab: Notes/Report: wbc 5.4 3.5 - 10 lym 24.8% 15 - 50 mid 6.8% 2 - 15 gran 68.4% 35 - 80 rbc 5.13 3.5 - 5.5 hgb 14.1 11.5 - 16.5 hct 42.9 35 - 55 mcv 83.6 75 - 100 mch 27.6 25 - 35 mchc 33.0 31 - 38 plat 125 100 - 400 Covid test (in house) Reviewed date:05/19/2024 03:23:02 PM Interpretation: Performing Lab: Notes/Report: Result: Neg REASON FOR VISIT coughing ,ear pressure Medications Medication SIG (Take, Route, Frequency, Duration) Notes Start Date End Date Status Famotidine 40 MG 1 tab(s) orally once a day (at bedtime); Duration: 90 days Active Valsartan-hydroCHLOROthiazi de 320-12.5 MG 1 tab(s) orally once a day Active Atorvastatin Calcium 20 MG 1 tablet Oral ly Once a day; Duration: 90 days Active Tamsulosin HCl 0.4 MG TAKE ONE CAPSULE B Y MOUTH ONCE A DAY; Duration: 90 Active Montelukast Sodium 10 MG TAKE ONE TABLET BY MOUTH EVERY DAY; Duration: 90 Active Dymista 137-50 MCG/ACT 1 spray(s) each n ostril once daily Active Albuterol Sulfate HFA 108 (90 Base) MCG/ACT 1 puff as needed Inhalation every 4 hrs 12/02/2022 Active Esomeprazole Magnesium 40 MG 1 cap(s) orally once a day; Duration: 90 days Active Fish Oil 1000 MG 2 cap(s) orally once daily Active CPAP SUPPLIES DIRECTED 08/11/2016 Act norma Benzonatate 200 MG 1 capsule as needed Orally Three times a day 05/19/2024 Active Centrum Men - 1 tab(s) orally once a day Active Aspirin Adult Low Dose 81 MG 1 tab(s) orally once a day Active OSTEO-BIFLEX 1 TAB(S) ORALLY BID Active Vital Signs Weight 262.2 lbs 05/19/2024 Blood pressure systolic 122 mm Hg 05/19/19 25 Blood pressure diastolic 78 mm Hg 025 Heart Rate 83 /min 05/19/2024 Height 72.50 in 05/19/2024 BMI 35.07 kg/m2 05/19/2024 Encounters Encounter Location Date Provider Diagnosis [facility] [address] [facility] [address] [facility] [address] [place] [phone] 05/19/2024 Messi Soto Viral URI J06.9 Assessments Encounter Date Diagnosis (ICD Code) Assessment Notes Treatment Notes Treatment Clinical Notes Section Notes 05/19/2024 Viral URI (ICD-10 - J06.9) Plan Of Treatment Medication Medication Name Sig Start Date Stop Date Notes Benzonatate 200 MG 1 capsule as needed Orally Three times a day 05/19/2024 Next Appt Details Follow Up: prn, Reason: Provider Name:Messi Tatum ry, 05/02/2025 01:45:00 PM, [address] [facility], [address], [place], [id number], Progress Notes * Augie FUENTES:[birth year] (69 yo M)Acc No.[id number]:05/19/2024 Progress Notes Patient: Jamel MITCHELL Provider: Yvonne Soto M.D. :1955 A ge:68 Y S ex:Male Date:05/19/2024 Address: [address] [place], [id number] Subjective: * Chief Complaints: * 1 . Coughing ,ear pressure. * HPI: E NT/respiratory: 68 year old male presents with c/o cough P t complains of greenish yellow sputum production cough that started yesterday. Associated with nasal congestion, scratchy throat and bodyaches. * ROS: D ERMATOLOGY: no R aleksandar. n o H donnie. G ASTROENTEROLOGY: no N ausea. n o V omiting. U ROLOGY: no D ifficulty urinating. n o B lood in urine. * Medical History: H ypertension, Esophageal Reflux, Allergic Rhinitis, Hemorrhoids, Normal left heart cath August 2015, sleep apnea, Dx: 2015, Asthma, Osteoarthritis knees, s/p ortho evaluation 2018, tinnitus, s/p ENT evaluation 2018, Metatarsus Adductus, bilateral feet. * Surgical History: T onsillectomy 1963, Umbilical Hernia Repair 2010, EGD - 07/2015, Stress Test and Echo - Dr. Rojas 07/2015, Heart Cath - Dr. Rojas - [facility] 08/22/2015, Colonoscopy 2011, Bilateral Cataract Removal 04/2020, LT Eye Lasix 11/29/2020, Right Shoulder Replacement 03/08/2023. * Hospitalization/Major Diagno stic Procedure: B owel Blockage- [facility] 12/21-02/2018. * Family History: F [...] spray(s) each nostril once daily , Taking Esomeprazole Magnesium 40 MG Capsule Delayed Release 1 cap(s) orally once a day , Taking Famotidine 40 MG Tablet 1 tab(s) orally once a day (at bedtime) , Taking Atorvastatin Calcium 20 MG Tablet 1 tablet Orally Once a day , Taking Valsartan-hydroCHLOROthiazide 320- 12.5 MG Tablet 1 tab(s) orally once a day , Taking Montelukast Sodium 10 MG Tablet TAKE ONE TABLET BY MOUTH EVERY DAY , Taking Tamsulosin HCl 0.4 MG Capsule TAKE ONE CAPSULE BY MOUTH ONCE A DAY , Medication List reviewed and reconciled with the patient * Allergies: N .K.D.A. Objective: * Vitals: W t:262.2, Temp:98.4, BP:122/78, HR:83, Nurse:meg, Ht: 72.50, BMI:35.07. * Examination: E NT/Respiratory: General Appearance: N AD. E yes: P ERRLA, sclera clear. E ars: a uditory canals normal bilaterally, TM's WNL. O ral cavity : erythema without exudate on pharynx. N shyla : n o cervical lymphadenopathy. H eart : R RR, normal S1 S2. L ungs: c lear to auscultation bilaterally. Assessment: * Assessment: 1. V iral URI - J06.9 (Primary) Plan: * Treatment: Value Reference Range r esults Neg * RogelioMagi 05/19/2024 1:51:37 PM > , Provider reviewed results while patient in office. ?LAB: CBC Fingerstick (in house) (Collection Date & Time - 05/19/2024)* Value Reference Range w bc 5.4 3.5 - 10 * l ym 24.8% 15 - 50 * m id 6.8% 2 - 15 * g ran 68.4% 35 - 80 * r bc 5.13 3.5 - 5.5 * h gb 14.1 11.5 - 16.5 * h ct 42.9 35 - 55 * m cv 83.6 75 - 100 * m ch 27.6 25 - 35 * m chc 33.0 31 - 38 * p lat 125 100 - 400 * Magi Mercado 05/19/2024 2:48:12 PM > , Provider reviewed results while patient in office. ?LAB: Covid test (in house) (Collection Date & Time - 05/19/2024)* Value Reference Range R esult: Neg * Magi Mercado 05/19/2024 1:51:56 PM > , Provider reviewed results while patient in office. * Procedure Codes: G 2211 Complex e/[place], [address] Flu Test- Nasal Swab, Modifiers: QW , 74123 COVID TEST IN HOUSE, Modifiers: QW , 40125 CAPILLARY BLOOD DRAW, 57628 CBC WITH AUTO DIFF * Follow Up: p rn * Images: Billing Information: * Visit Code: 39332 Office Visit, Est Pt., Level 3. * Procedure Codes: G2211 Complex e/[place]. [address] Flu Test- Nasal Swab. Modifiers: QW 99991 COVID TEST IN HOUSE. Modifiers: QW 46651 CAPILLARY BLOOD DRAW. 16232 CBC WITH AUTO DIFF. * Electronic signature of Nayeli Soto MD on 03/13/2025 at 09:57 AM EDT Sign off status: Pending * Provider: Yvonne Soto M.D. Date: 0 05/19/2024 Generated for Rashaun kilgore/Rosalva/eTalmasmitting on: 1 09:57 AM EDT History and Physical Notes * HPI (History of Present Illness) Category Sub-Category Detail Notes Category Not es ENT/respiratory cough Pt complains of greenish yellow sputum production cough that started yesterday. Associated with nasal congestion, scratchy throat and bodyaches Examination Category Sub-Category Detail Notes Category Not es ENT/Respiratory Oral cavity : erythema without exudate on pharynx Ears: auditory canals norm al bilaterally, TM's WNL Neck : no cervical lymphade nopathy Heart : RRR, normal S1 S2 Lungs: clear to auscultatio n bilaterally General Appearance: NAD Eyes: PERRLA, sclera clear
--- OUTSIDE RECORDS SUMMARY | 2024-09-13 11:00 | XMS_ITS ---
[facility] Address [address] [place] [id number] Care Team Providers Care Admissions Gate Attendant Name Role Phone Messi Soto Primary Care Provider [phone] Allergies No Known Allergies Results Component Value Reference Range Notes X ray : Wrist, left Reviewed date:09/15/2024 10:28:30 AM Interpretation:Abnormal Performing Lab: Notes/Report: Abnormal REASON FOR VISIT spot on left wrist, sore Medications Medication SIG (Take, Route, Frequency, Duration) Notes Start Date End Date Status Centrum Men - 1 tab(s) orally once a day Active CPAP SUPPLIES DIRECTED 08/11/2016 Act norma Aspirin Adult Low Dose 81 MG 1 tab(s) orally once a day Active Benzonatate 200 MG 1 capsule as needed Orally Three times a day 05/19/2024 Active Valsartan-hydroCHLOROthiazi de 320-12.5 MG 1 tab(s) orally once a day; Duration: 90 days Active Wrist Brace - as directed cock up type 09/13/2024 Active Esomeprazole Magnesium 40 MG 1 cap(s) orally once a day; Duration: 90 days Active Dymista 137-50 MCG/ACT 1 spray(s) each n ostril once daily Active Famotidine 40 MG 1 tab(s) orally once a day (at bedtime); Duration: 90 days Active Albuterol Sulfate HFA 108 (90 Base) MCG/ACT 1 puff as needed Inhalation every 4 hrs 12/02/2022 Active Montelukast Sodium 10 MG 1 tablet Orally Once a day; Duration: 90 days Active Tamsulosin HCl 0.4 MG 1 capsule Orally O nce a day; Duration: 90 days Active Atorvastatin Calcium 20 MG 1 tablet Oral ly Once a day; Duration: 90 days Active Vital Signs Weight 263 lbs 09/13/2024 Blood pressure systolic 120 mm Hg 09/14/19 25 Blood pressure diastolic 78 mm Hg 025 Heart Rate 71 /min 09/13/2024 Height 72.50 in 09/13/2024 BMI 35.18 kg/m2 09/13/2024 Encounters Encounter Location Date Provider Diagnosis [facility] [address] [facility] [address] [facility] [address] [place] [id number] 09/13/2024 Messi Soto Left wrist pain M25.532 Assessments Encounter Date Diagnosis (ICD Code) Assessment Notes Treatment Notes Treatment Clinical Notes Section Notes 09/13/2024 Left wrist pain (ICD-10 - M25.532) Rest, ice, compression and elevation Plan Of Treatment Medication Medication Name Sig Start Date Stop Date Notes Wrist Brace - as directed cock up type 09/13/2024 Treatment Notes Assessment Notes Left wrist pain Rest, ice, compressi on and elevation Next Appt Details Follow Up: via phone to repo rt progress, Reason: Provider Name:Messi Tatum ry, 05/02/2025 01:45:00 PM, [address] [facility] [address] [facility], [address], [place], [id number], Progress Notes * Jamel FUENTESDOB:[birth year] (69 yo M)Acc No.[id number]:09/13/2024 Progress Notes Patient: Jamel MITCHELL Provider: Yvonne Soto M.D. :1955 A ge:68 Y S ex:Male Date:09/13/2024 Address:[address], [place], [id number] Subjective: * Chief Complaints: * 1 . Spot on left wrist, sore. * HPI: W rist/Hand: 68 year old male presents with c/o pain P t complains of lt wrist pain since Wednesday. Pt states there swelling and he can hardly lift anything with lt hand because of the pain. * ROS: D ERMATOLOGY: no R aleksandar. [...] 07/2015, Heart Cath - Dr. Rojas - [facility] 08/22/2015, Colonoscopy 2011, Bilateral Cataract Removal 04/2020, LT Eye Lasix 11/29/2020, Right Shoulder Replacement 03/08/2023. * Hospitalization/Major Diagno stic Procedure: Yvonne Hillman- [facility] 12/21-02/2018. * Family History: F ather: [...] tab(s) orally once a day , Taking CPAP SUPPLIES DIRECTED , Taking Benzonatate 200 MG Capsule 1 capsule as needed Orally Three times a day , Taking Valsartan-hydroCHLOROthiazide 320-12.5 MG Tablet 1 tab(s) orally once a day , Taking Montelukast Sodium 10 MG Tablet 1 tablet Orally Once a day , Taking Tamsulosin HCl 0.4 MG Capsule 1 capsule Orally Once a day , Taking Atorvastatin Calcium 20 MG Tablet 1 tablet Orally Once a day , Taking Famotidine 40 MG Tablet 1 tab(s) orally once a day (at bedtime) , Taking Esomeprazole Magnesium 40 MG Capsule Delayed Release 1 cap(s) orally once a day , Taking Dymista 137-50 MCG/ACT Suspension 1 spray(s) each nostril once daily , Taking Albuterol Sulfate HFA 108 (90 Base) MCG/ACT Aerosol Solution 1 puff as needed Inhalation every 4 hrs , Medication List reviewed and reconciled with the patient * Allergies: N .K.D.A. Objective: * Vitals: W t: 263, Temp: 98.1, BP: 120/78, HR: 71, Nurse: kk, Ht: 72.50, BMI:35.18. * Examination: G eneral Examination: General Appearance: N AD. G enitalia: s mall, soft subcutaneous mass on the dorsum of the left wrist, non tender to palpation, full wrist ROM. ? Assessment: * Assessment: 1. L eft wrist pain - M25.532 (Primary) Plan: * Treatment: Notes: Rest, ice, compression and elevation?? * Procedure Codes: G 2211 Complex e/m visit add on, 3074F SYST BP LT 130 MM HG, 3078F DIAST BP < 80 MM HG * Follow Up: v ia phone to report progress * Images: Billing Information: * Visit Code: 67572 Office Visit, Est Pt., Level 3. * Procedure Codes: G2211 Complex e/m visit add on. 3074F SYST BP LT 130 MM HG. 3078F DIAST BP < 80 MM HG. * Electronic signature of Nayeli Soto MD on 03/13/2025 at 09:58 AM EDT Sign off status: Pending * Provider: Yvonne Soto M.D. Date: 0 09/13/2024 Generated for Rashaun kilgore/Rosalva/Marlenaitting on: 1 09:58 AM EDT History and Physical Notes * HPI (History of Present Illness) Category Sub-Category Detail Notes Category Not es Wrist/Hand pain Pt complains of lt wrist pain since Wednesday. Pt states there swelling and he can hardly lift anything with lt hand because of the pain Examination Category Sub-Category Detail Notes Category Not es General Examination General Appearance: NAD Genitalia: small, soft subcutan eous mass on the dorsum of the left wrist, non tender to palpation, full wrist ROM
--- OUTSIDE RECORDS SUMMARY | 2024-10-30 09:45 | XMS_ITS ---
Author [facility] Address [address] [place] [id number] Care Team Providers Care Consultative Sales Associate Name Role Phone Messi Soto Primary Care Provider Allergies No Known Allergies REASON FOR VISIT [...] Provider Diagnosis [facility] [address] [facility] [address] [place] [id number] 10/30/2024 Messi Soto Essential hypertensi on I10 [...] 05/02/2025 01:45:00 PM, [address] [facility], [address], [place], [phone], Progress Notes * Augie FUENTES:[birth year] (69 yo M)Acc No.[id number]:10/30/2024 Progress Notes Patient: Jamel MITCHELL Provider: Yvonne Soto M.D. :1955 A ge:69 Y S ex:Male Date:10/30/2024 Address: [place], [id number] Subjective: * Chief Complaints: * 1 . [...] 07/2015, Heart Cath - Dr. Rojas - [facility] 08/22/2015, Colonoscopy 2011, Bilateral Cataract Removal 04/2020, LT Eye Lasix 11/29/2020, Right Shoulder Replacement 03/08/2023. * Hospitalization/Major Diagno stic Procedure: Yvonne Hillman- [facility] 12/21-02/2018. * Family History: F ather: alive, [...] * Images: Billing Information: * Visit Code: 07776 Office Visit, Est Pt., Level 4. * [...] 10/30/2024 Generated for Rashaun kilgore/Rosalva/Marlenaitting on: 1 09:59 AM EDT History and Physical Notes [...]
--- OUTSIDE RECORDS SUMMARY | 2024-11-10 04:25 | XMS_ITS ---
Author Organization [facility] Address [address] [place] [id number] Care Team Providers Care Family Protection Specialist Name Role Phone Messi Soto Primary Care Provider Results Component Value Reference Range Notes CBC [...] 0.66 Performing Lab: Notes/Report: Test performed by [facility] , [address], [place] [address] Pedro Pablo Das MD, Speeder Frame Tender CLIA: [id number] Sodium 142 135-145 mmol/L Potassium 4.4 3.5-5.3 [...] Interpretation:Normal Performing Lab: Notes/Report: Test performed by [facility], [address] , [address] , [place] [address] Pedro Pablo Das MD, Speeder Frame Tender CLIA: [id number] Cholesterol 129 <200 mg/dL Triglycerides 56 <150 [...] Interpretation:Normal Performing Lab: Notes/Report: Test performed by [facility] , [place] [address] Pedro Pablo Das MD, Speeder Frame Tender CLIA: [id number] PSA 1.58 <4.00 ng/mL Please note this is an ultrasensitive PSA assay with a lower limit of detection of 0.014 ng/mL. This test is performed by the [employer] ECLIA methodology. Values obtained with different assay methods or kits cannot be directly compared. P-TSH reflex to FT4 Reviewed date:11/15/2024 04:56:13 PM Interpretation:Normal Performing Lab: Notes/Report: Test performed by [facility] , [address], [place] [address] Pedro Pablo Das MD, Speeder Frame Tender CLIA: [id number] TSH reflex to FT4 2.32 0.43-5.25 mU/L P-Microalbumin/Creatinine, R andom Urine Sample Reviewed date:11/15/2024 04:56:13 PM Interpretation:a/c 296 Performing Lab: Notes/Report: Test performed by [facility], [facility] [address] [place] [address] , [address], [place] [address] Pedro Pablo Das MD, Speeder Frame Tender CLIA: [id number] Albumin/Creatinine Ratio, Urine 296 0-30 ug/mg Microalbumin, [...] Active Encounters Encounter Location Date Provider Diagnosis [facility] [address] [facility] [address] [place], [place] [id number] 11/10/2024 [place] Essential hypertensi on I10 ; Pure hypercholesterolemia [address], [place], [id number], Progress Notes * Jamel FUENTESDOB:[birth year] (69 yo M)Acc No.[id number]:11/10/2024 Patient: Jamel MITCHELL Provider: Yvonne Soto M.D. :1955 A ge:69 Y S ex:Male Date:11/10/2024 Address: [address], [place], [id number] Subjective: * Chief Complaints: * 1 . [...] Mercado 11/10/2024 09:54: 44 AM EDT > Jorge Mathewia 11/15/2024 04:56:06 PM EDT > See phone [...] Codes: 8 5025 CBC WITH AUTO DIFF, 84836 VENIPUNCT, ROUTINE* * Images: Billing Information: * Visit Code: * Procedure Codes: 35793 CBC WITH AUTO DIFF. 23236 VENIPUNCT, ROUTINE*. * Electronic signature of Nayeli Soto MD on 03/13/2025 at 09:58 AM EDT Sign off status: Pending * Provider: Yvonne Soto M.D. Date: 0 11/10/2024 Generated for Rashaun kilgore/Rosalva/Daya on: 1 09:58 AM EDT
--- OUTSIDE RECORDS SUMMARY | 2025-02-27 07:30 | XMS_ITS ---
[facility] Address [address] [place] [phone] Care Team Providers Care National Expansion Recruiter Name Role Phone Messi Soto Primary Care Provider [phone] Marlee Argueta Unavailable [phone] Allergies No Known Allergies Results Component Value [...] 02/27/2025 Encounters Encounter Location Date Provider Diagnosis [facility] [address] [place], [place] [phone] 02/27/2025 Marlee Argueta Acute bronchitis J20.9 Assessments [...] [address], [place], [phone], Progress Notes * Jamel FUENTESDOB:[birth year] (69 yo M)Acc No.[id number]:02/27/2025 Progress Notes Patient: Jamel MITCHELL Provider: BRIGETTE Mabry :1955 A ge:69 Y S ex:Male Date:02/27/2025 Address:[address], [place], [id number] Pcp:Messi Soto Subjective: * Chief Complaints: * [...] Rojas 07/2015, Heart Cath - Dr. Crystal [facility] 08/22/2015, Colonoscopy 2011, Bilateral Cataract Removal 04/2020, LT Eye Lasix 11/29/2020, Right Shoulder Replacement 03/08/2023. * Hospitalization/Major Diagno stic Procedure: Yvonne chanel Blockage- [facility] 12/21-02/2018. * Family History: F ather: [...] measures for fever/symptom relief?? * Procedure Codes: G 2211 Complex e/[place], [address] Flu Test- Nasal Swab, Modifiers: QW , 45509 COVID TEST IN HOUSE, Modifiers: QW , 1036F TOBACCO NON-USER, 3074F SYST BP LT 130 MM HG, 3078F DIAST BP < 80 MM HG * Follow Up: p rn * Images: Billing Information: * Visit Code: 80474 Office Visit, Est Pt., Level 3. * Procedure Codes: G2211 Complex e/[place]. [address] Flu Test- Nasal Swab. Modifiers: QW 90263 COVID TEST IN HOUSE. Modifiers: QW 1036F TOBACCO NON-USER. 3074F SYST BP LT 130 MM HG. 3078F DIAST BP < 80 MM HG. * Electronic signature of Judy Argueta APRN on 03/13/2025 at 09:57 AM EDT Sign off status: Pending * Provider: BRIGETTE Mabry Date: 1 Generated for Rashaun kilgore/Rosalva/Daya on: 09:57 AM EDT History and Physical Notes [...]
[2025-03-13 07:57] VITALS: BMI 35.2
--- OUTSIDE RECORDS SUMMARY | 2025-03-13 09:58 | XMS_ITS | Clinical Summary ---
Author Organization Healthcare Address [address] [place] [address] Care Team Providers Care Mainframe Consultant Name Role Phone Messi Soto MD Primary Care Provider [phone] Allergies No known active allergies Medications valsartan-hydro [...] SILVER 50+MEN PO) 6 Active HYDROcodone-eulalia taminophen (Morgan) 5-325 MG tablet Take 1 tablet (5 [...] (AAA) Screening 2022 [facility]-Depression Screening 09/19/2023 09/18/2022 SIS-YWHXS-57 Vaccine ( season) 2025 02/23/2024, 04/06/2023, 03/18/2023, [...] this topic Medical Devices Implanted Type Area Athletic Events Scorer Device Identifier Shelf Expiration Date Model / Serial / Lot Screw Perform Reversed Peripheral 5x46mm - [id number] - [id number] Implanted:Qty: 1 on 03/08/2023 by Craig Jon MD at [facility] Screw Right: Shoulder [employer] [facility]139 168 03/05/2024 [id number] / [id number] / Screw Perform Reversed Central 6.5x35mm - [id number] - [id number] Implanted:Qty: 1 on 03/08/2023 by Craig Jon MD at [facility] Screw Right: Shoulder [employer] ([facility]139 168 03/05/2024 [id number] / [id number] / Screw Perform Reversed Peripheral 5x22mm - [id number] - [id number] Implanted:Qty: 1 on 03/08/2023 by Craig Jon MD at [facility] Screw Right: Shoulder [employer] ([facility]139 168 03/05/2024 [id number] / [id number] / Screw Perform Reversed Peripheral 5x34mm - [id number] - [id number] Implanted:Qty: 1 on 03/08/2023 by Craig Jon MD at [facility] Screw Right: Shoulder [employer] ([facility]139 168 03/05/2024 [id number] / [id number] / Baseplate Fullwdg Augmnt Perform Rvrsd 15dg/29mm - [id number] - [id number] Implanted:Qty: 1 on 03/08/2023 by Craig Jon MD at [facility] Shoulder Right: Shoulder [employer] ([facility]139 168 09/30/2027 [id number] / [id number] / [id number] [employer] Perform Reversed Standard 42mm - [id number] - [id number] Implanted:Qty: 1 on 03/08/2023 by Craig Jon MD at [facility] Shoulder Right: Shoulder [employer] ([employer])-139 168 03/13/2027 [id number] / [id number] / [id number] Stem Humeral Perfrom Sz 3 - [id number] - [id number] Implanted:Qty: 1 on 03/08/2023 by Craig Jon MD at [facility] Shoulder Right: Shoulder [employer] [facility]139 168 05/08/2027 [id number] / [id number] / [id number] Insert Perform Rvrsd Sz3/4 42mm/Pls 0mm - [id number] - [id number] Implanted:Qty: 1 on 03/08/2023 by Craig Jon MD at [facility] Shoulder Right: Shoulder [employer] [facility]139 168 06/15/2027 [id number] / [id number] / [id number] Cement [employer] W/Gent - [id number] Implanted:02/15 by Craig Jon MD at [facility] (Quantity not on file) [employer]-[id number] / / Cement [place] W/Gent - [id number] Implanted:02/15 by Craig Jon MD at [facility] (Quantity not on file) [id number] / / Insurance MEDICARE [facility] Care Teams Mainframe Consultant Relationship Specialty Start Date End Date Messi Soto MD [address] [place] [address] PCP - General 09/27/20
--- OUTSIDE RECORDS SUMMARY | 2025-03-13 09:59 | XMS_ITS | Patient Health Record ---
Author Organization [facility] Address [address] [place] [id number] Care Team Providers Care Race Steward Name Role Phone Messi Soto Primary Care Provider Marlee Argueta Unavailable [phone] Allergies No Known Allergies Results Component Value [...] PM Interpretation: Performing Lab: Notes/Report: Result: Neg X ray : Wrist, left Reviewed date:09/15/2024 10:28:30 AM Interpretation:Abnormal Performing Lab: Notes/Report: Abnormal Influenza Screen (in house) Reviewed date:02/27/2025 01:21:28 PM Interpretation:Negative Performing Lab: Notes/Report: Negative results Neg Covid test (in house) Reviewed date:02/27/2025 01:21:45 PM Interpretation:Negative Performing Lab: Notes/Report: Negative Result: Neg MRI : Wrist, Left, without c ontrast Reviewed date:09/25/2024 11:59:26 AM Interpretation:Abnormal Performing Lab: Notes/Report: Abnormal P-Microalbumin/Creatinine, R andom Urine Sample Reviewed date:11/15/2024 04:56:13 PM Interpretation:a/c 296 Performing Lab: Notes/Report: Test performed by [facility] [address] , [address], [place] [address] Pedro Pablo Das MD, [facility] CLIA: [id number] Albumin/Creatinine Ratio, Urine 296 0-30 ug/mg Microalbumin, Urine, Random 17.4 Creatinine, Urine 58.7 P-TSH reflex to FT4 Reviewed date:11/15/2024 04:56:13 PM Interpretation:Normal Performing Lab: Notes/Report: Test performed by [facility] [address] [place] [address] , [address], [place] [address] Pedro Pablo Das MD, [facility] CLIA: [id number] TSH reflex to FT4 2.32 0.43-5.25 mU/L P-PSA Reviewed date:11/15/2024 04:56:13 PM Interpretation:Normal Performing Lab: Notes/Report: Test performed by [facility] [address] [place] [address] Junior Jean, [address], [place] [address] Pedro Pablo Das MD, [facility] CLIA: [id number] PSA 1.58 <4.00 ng/mL Please note this is an ultrasensitive PSA assay with a lower limit of detection of 0.014 ng/mL. This test is performed by the [employer] ECLIA methodology. Values obtained with different assay methods or kits cannot be directly compared. P-Lipid Panel Reviewed date:11/15/2024 04:56:13 PM Interpretation:Normal Performing Lab: Notes/Report: Test performed by [facility] [address] [place] [address] [address], [place] [address] Pedro Pablo Das MD, [facility] CLIA: [id number] Cholesterol 129 <200 mg/dL Triglycerides 56 <150 [...] Results: 74 Units: mg/dL % Change: -19% P-Comprehensive Metabolic Pa edith (CMP) Reviewed date:11/15/2024 04:56:13 PM Interpretation:gluc 125, Cr 0.66 Performing Lab: Notes/Report: Test performed by [facility], [employer] [facility] [place][note 2][address] [facility] , [address], [place] [address] Pedro Pablo Das MD, [facility] CLIA: [id number] Sodium 142 135-145 mmol/L Potassium 4.4 3.5-5.3 [...] 0.4 <0.2-1.2 mg/dL A/G Ratio 1.8 1.1-2.5 CBC Venipuncture (in house) Reviewed date:11/15/2024 04:56:13 [...] - 38 platlet 132 100 - 400 CBC Venipuncture (in house) Reviewed date:05/02/2024 11:43:09 [...] Interpretation:Satisfactory Performing Lab: Notes/Report: Test performed by [facility], [address] , [address], [place] [address] Pedro Pablo Das MD, [facility] CLIA: [id number] Sodium 139 135-145 mmol/L Potassium 4.1 3.5-5.3 mmol/L Chloride 103 97-108 mmol/L CO2 26 22-32 mmol/L Glucose 117 65-99 mg/dL BUN 11 8-23 mg/dL Creatinine 0.73 0.70-1.30 mg/dL Calcium 9.4 8.6-10.4 mg/dL eGFR by Creatinine 100 >59 mL/min/1.73m2 CT scan : Pelvis w/ oral and IV contrast Reviewed date:05/24/2024 12:41:36 PM Interpretation:Negative Performing Lab: Notes/Report: Negative Reason For Referral Reason Dr. Montoya in [facility] Diagnosis 1 Osteochondrosis of l unate of left wrist (M92.212) Referral Organization [facility] Referring Provider First Name Messi Referring Provider Last Name Brittany Referring Provider [facility] [place] Referred Provider Specialty Orthopedic S urgery General Notes Vy Garcia 2024 10:21:46 AM > sent referral via [facility] website Referral Priority Routine Medications Medication [...] Vaccine Route Administration Date Status Comme nts xFlu shot-36 months and older Unknown 02/14/2016 Administered xAdministration of injection Unknown 02/14/2016 Administered Tetanus Tdap-Adacel (over 7yrs) IM Intramuscular 02/01/2020 Administered Shingrix Unknown 04/13/2018 Administered Shingrix Unknown 05/18/2018 Administered Shingrix Unknown 06/13/2018 Administered Prevnar (PCV20) Unknown 02/16/2023 Administered ppd ID Intradermal 05/20/2015 Administered Hepatitis A (adult) Unknown 04/13/2018 Administered Hepatitis A (adult) Unknown 05/18/2018 Administered Hepatitis A (adult) Unknown 10/24/2018 Administered Fluzone Quad (6months&older) Unknown 02/14/2019 Administered Fluzone Quad (6months&older) IM Intramuscular 02/01/2020 Administered Fluzone PF Quad (6-35 months) Unknown 02/14/2019 Administered Fluzone PF Quad (6-35 months) Unknown 03/04/2021 Administered Fluzone PF Quad (6-35 months) Unknown 02/18/2022 Administered Fluzone High Dose (65yr and older) Unknown 02/16/2023 Administered DT, 7 YEARS OR OLDER Unknown 07/19/1996 Administered COVID 19 Pfizer Unknown 08/03/2020 Administered COVID 19 Pfizer Unknown 02/19/2021 Administered Problems Problem Type SNOMED Code ICD Code Onset Dates Problem Status W/U Status Risk Notes Problem Essential hypertension (78119577) Essential hypertension (I10) Active confirmed Problem Sciatic nerve lesion (633679629) Piriformis syndrome of right side (G57.01) Active confirmed Problem Arthropathy of lumba r facet joint (798144905) Lumbar facet arthropathy (M47.816) Active confirmed Problem Obstructive sleep apnea (86851419) Obstructive sleep apnea (G47.33) Active confirmed Problem Anorexia (18542873) Anorexia (R63.0) Active con firmed Problem Arthropathy of cervical spine facet joint (disorder) (710440725) Facet arthropathy, cervical (M46.92) Active confirmed Problem Degeneration of cervical intervertebral disc (96214754) Degenerative disc disease, cervical (M50.30) Active confirmed Problem Degeneration of lumbar intervertebral disc (01390399) Lumbar degenerative disc disease (M51.36) Active confirmed Problem Gastroesophageal reflux disease without esophagitis (422069249) Gastroesophageal reflux disease without esophagitis (K21.9) Active confirmed Problem Bilateral tinnitus (1105619527970) Tinnitus of both ears (H93.13) Active confirmed Problem Gastroesophageal reflux disease (155440570) Gastroesophageal reflux disease, esophagitis presence not specified (K21.9) Active confirmed Problem Uncomplicated mild persistent asthma (793067262) Mild persistent asthma without complication (J45.30) Active confirmed Problem Leukocytosis (190265565) Leukocytosis, unspecified type (D72.829) Active confirmed Problem Asthma without statu s asthmaticus (92989841) Asthmatic bronchitis, unspecified asthma severity, uncomplicated (J45.909) Active confirmed Problem Snoring (63919894) History of sn oring (Z87.898) Active confirmed Problem Bifascicular block (47952694) Right BBB/left ant fasc block (I45.2) Active confirmed Problem Sciatica (30242110) Acute right- sided low back pain with right-sided sciatica (M54.41) Active confirmed Problem Sciatica (52337520) Acute left-s ided low back pain with left-sided sciatica (M54.42) Active confirmed Problem Pure hypercholesterolemia (662349653) Pure hypercholesterolemia (E78.00) Active confirmed Problem Arthritis of right knee (6957236690294069) Arthritis of right knee (M17.11) Active confirmed Problem Exacerbation of asthma (609588864) Asthmatic bronchitis with acute exacerbation, unspecified asthma severity, unspecified whether persistent (J45.901) Active confirmed Problem Allergic rhinitis (32464928) Allergic rhinitis, unspecified seasonality, unspecified trigger (J30.9) Active confirmed Problem Gastroesophageal reflux disease (689051077) Gastroesophageal reflux disease, unspecified whether esophagitis present (K21.9) Active confirmed Vital Signs Heart Rate 83 /min 02/27/2025 Blood pressure diastolic 76 mm Hg 02/27/2025 Height 72.50 in 02/27/2025 Blood pressure systolic 122 mm Hg 02/27/2025 Weight 264.4 lbs 02/27/2025 BMI 35.36 kg/m2 02/27/2025 Encounters Encounter Location Date Provider Diagnosis [facility] [address] [place], [place] [id number] 05/01/2024 Messi [place] Essential hypertensi on I10 and Rectal pain K62.89 [facility] [address] [facility] [address] [place], [place] [id number] 05/19/2024 Messi [place] Viral URI J06.9 [facility] [address] [facility] [address] [place], [place] [id number] 09/13/2024 Messi [place] Left wrist pain M25. 532 [facility] [address] [place], [place] [id number] 10/30/2024 Messi [place] Essential hypertensi on I10 ; Pure hypercholesterolemia E78.00 ; Gastroesophageal reflux disease, unspecified whether esophagitis present K21.9 ; Rheumatoid factor positive R76.8 and VIANCA positive R76.8 [facility] [address] [facility] [address] [place], [place] [id number] 11/10/2024 Messi [place] Essential hypertensi on I10 ; Pure hypercholesterolemia E78.00 and Screening for prostate cancer Z12.5 [facility] [address] [facility] [address] [place], [place] [id number] 02/27/2025 Marlee [place] Acute bronchitis J20.9 [facility] [address] [facility] [address] [place] [id number] 05/23/2024 Messi [place] [address] [facility] [address] [place] [id number] 06/20/2024 Messi [place] Essential hypertensi on I10 ; Allergic rhinitis, unspecified seasonality, unspecified trigger J30.9 ; Mild persistent asthma without complication J45.30 and Pure hypercholesterolemia E78.00 [facility] [address] [place] [id number] 09/15/2024 Messi [place] Left wrist pain M25. 532 and Closed displaced fracture of lunate of left wrist, [facility] [address] [place] [id number] 09/25/2024 Messi [place] Osteochondrosis of l unate of left wrist M92.212 ; Wrist tendonitis M77.8 and Left wrist pain M25.532 [facility] [address] [place] [id number] 11/15/2024 [facility] [place] [facility] [address] [place] [id number] 12/18/2024 Messi [place] Assessments Encounter Date Diagnosis (ICD Code) Assessment [...] 10/30/2024 Pure hypercholesterolemia (ICD-10 - E78.00) 11/10/2024 Pure hypercholesterolemia (ICD-10 - E78.00) 02/27/2025 Acute bronchitis (ICD-10 - J20.9) no physical work; fluids, rest, supportive measures for fever/symptom relief 11/10/2024 Essential hypertensi on (ICD-10 - I10) 10/30/2024 Gastroesophageal ref lux disease, unspecified whether [...] [address], [address], [place], [place], [id number], Insurance Providers Payer Name Payer Address Payer Phone Subscriber Number Group Number Insured Name Patient Relationship to Insured Coverage Start Date Coverage End Date MEDICARE PART B [place] [address] [place] [address] [id number] Jamel Fuentes Self - patient is the insured [employer] [address] [id number] Jamel Fuentes Self - patient is [...] 07/16 016 Heart Cath - Dr. Rojas [facility] 08/22/2015 Colonoscopy 2011 Bilateral Cataract Removal 04/2020 LT Eye Lasix 11/29/2020 Right Shoulder Replacement 03/08/2023 Hospitalization History Reason Date(Month/Year) Bowel Blockage- [facility] 12/21-02/2018
--- NOTE | 2025-03-13 10:11 | ECG_ITS ---
APPROVED REPORT Exam: Resting ECG HR:71 bpm ECG Measurements Heart Rate 71 AXES NJ 175 P 17 QRSd 167 QRS -76 QT 412 T -19 QTc 435 Conclusion SINUS RHYTHM RIGHT BUNDLE BRANCH BLOCK [120+ ms QRS DURATION, UPRIGHT V1, 40+ ms S IN I/aVL/V4/V5/V6] LEFT ANTERIOR FASCICULAR BLOCK [QRS AXIS <= -45, QR IN I, RS IN II] MINIMAL VOLTAGE CRITERIA FOR LVH, CONSIDER NORMAL VARIANT [MEETS CRITERIA IN ONE OF: R(aVL), S(V1), R(V5), R(V5/V6)+S(V1)] ABNORMAL ECG UNCONFIRMED REPORT Electronically signed by : Dada Marie MD 03/14/2025 08:07:59
[2025-03-13 10:26] LABS: Hematocrit 41.3 % (42.0-52.0); Hemoglobin 13.4 g/dL (14.1-18.0); Immature Granulocytes % 0.7 %; Mean Corpuscular HGB Conc 32.4 g/dL (31.8-35.4); Mean Corpuscular Hemoglobin 27.7 pg (27.0-31.2); Mean Corpuscular Volume 85.3 fl (80-94); Nucleated Red Blood Cells % 0 %; Platelet Count 202 K/mm3 (142-424); Red Blood Count 4.84 M/mm3 (4.60-6.20); Red Cell Distribution Width-SD 43.1 fL; White Blood Count 6.9 K/mm3 (4.8-10.8)
[2025-03-13 10:35] LABS: Anion Gap 10.8 mEq/L (5-15); Blood Urea Nitrogen 16 mg/dl (9-20); Calcium 9.0 mg/dl (8.4-10.2); Carbon Dioxide 27 mmol/L (22.0-30.0); Chloride 103 mmol/L (98-107); Creatinine Clearance Estimated 120 mL/min (50-200); Creatinine,Serum 0.70 mg/dl (0.66-1.25); Estimated Glomerular Filt Rate 112 ml/min (>60); GFR (African American) 136 ML/MIN (>60); Glucose 118 mg/dl (74-100); Potassium 3.8 mmoL/L (3.5-5.1); Sodium 137 mmol/L (136-145)
== END 2025-03-13 23:59 | disposition home or self-care (01) ==
LOC: PREOP 09:45
PROVIDERS: Nurse Anesthetist, Certified Registered; PCP Family Medicine; Visit Provider Surgery
DX: Z01.810 Encounter for preprocedural cardiovascular examination (principal); Z01.812 Encounter for preprocedural laboratory examination; Z01.818 Encounter for other preprocedural examination; I45.2 Bifascicular block; R94.31 Abnormal electrocardiogram [ECG] [EKG]
CPT/HCPCS: 80048; 85025; 93005

== ENCOUNTER 2025-03-19 08:51 | Day surgery (SDC) | payer MEDICARE, OTHER, SELFPAY ==
[2025-03-13 13:23] VITALS: BMI 35.2
[2025-03-19] VITALS (9 sets, daily range): BP systolic 99–140; BP diastolic 57–78; PULSE 83–91; RESP 16–20; TEMP 36.2–36.4; O2SAT 92–95; BMI 35.2
[2025-03-19] MEDS: LACTATED RINGERS 1000ML 1,000 ML 25 ML IV (09:21)
--- NOTE | 2025-03-19 09:26 | EXP.ANES.CKL ---
[facility] Disclaimer: The information contained in this section may have been updated after the patient was seen, as this information can be updated by other users. Medical History History of colon polyps Oral mucosal lesion right lower lip Lesion of lip Enlarged prostate Arthritis Bronchitis Sleep apnea Asthma History of gastroesophageal reflux (GERD) History of diverticulitis History of cataract History of anemia Pneumonia Asthmatic bronchitis Dyspnea on exertion Allergic rhinitis, unspecified Moderate persistent asthma Cough variant asthma Seasonal allergies History of smoking for 2-5 years Surgical History History of right shoulder replacement History of cataract surgery History of surgery HEART CATH H/O umbilical hernia repair History of colonoscopy History of tonsillectomy Family History Sister Breast cancer Other Cancer Social History (Updated 03/19/25 @ 09:08 by Maricruz Paiz RN) Smoking Status: Former smoker alcohol intake: never counseling provided: none substance use type: denies use current occupational status: retired Travel in the last 8 weeks?: None household members: spouse housing: house 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 current occupational exposures/hazards: No caffeine: Yes Have you lived/traveled outside US in past 30 days?: No Contact w/someone who lives/traveled outside US past 30 days?: No Exposure to someone with infectious disease in past 14 days?: No Do you have a fever (greater than 100.4 F or 38 C)?: No Have you tested positive for COVID-19?: No Exposed to someone with COVID-19 in past 14 days?: No Do you have a sore throat?: No Do you have a cough?: No Do you have any weakness?: No Are you experiencing any nausea/vomitting?: No Do you have any diarrhea?: No Are you experiencing any unusual bleeding?: No Do you have any muscle aches/pain?: No Do you have any abdominal pain?: No Are you experiencing loss of taste or smell?: No [facility] Anesthesia Checklist Patient Identification Patient Identification: Arm Band and Verbal (Name & ) Structural Data Admitted From: Home Planned Operative Procedure/s: Fistulotomy Consent for Planned Operative Procedure(s) Verified: Yes Verified Documents: Surgical Consent NPO Status Verified Time NPO: 00:00 Chart Verification Results Verified: ECG Additional verifications Anesthesia Reactions: No Hx Blood Transfusions: No Blood Transfusion Reaction: No Airway Assessment Mallampati Score:: Class II C-Spine Mobility Assessed: Yes TMJ Mobility Assessed: Yes Dentition: Good Dentition Neurological Assessment Level of Consciousness: Awake, Alert and Appropriate Hx Seizures: No Numbness or tingling in extremities: No Anesthesia Plan Anesthesia Risk discussed: Yes Anesthesia Plan: Verified ASA Class: II Anesthesia Type: General
[2025-03-19] MEDS: AMPICILLIN/SULBACTAM 3 GM in 0.9 % SODIUM CHLORIDE 100 ML IV (11:42)
[2025-03-19] MEDS: LIDOCAINE 1% W/EPI 1:100,000 20ML VIAL 20 ML (12:02)
--- NOTE | 2025-03-19 12:45 | P.OP_ITS ---
Date of procedure: 03/19/25 Pre-op Diagnosis:: Anal fistula Post-op Diagnosis:: Same Procedure performed:: Exam under anesthesia with fistulotomy seton placement Surgeon:: Kane Martin MD [employer] TECHNICIAN:: Daniel [place] Anesthesia: GETA Estimated blood loss (mL): 5 Clinical Note:: Patient presents for exam under anesthesia with fistulotomy and possible seton placement. I have performed previous colonoscopies on him. Patient did have transanal incision and drainage of perirectal abscess on 08/26/2021. He had a subsequent colonoscopy 01/02/2022. He had a couple of tubular adenomas at that time. He did have a flexible sigmoidoscopy on 08/14/2022 at which time solid stool was encountered at the rectosigmoid region and the colonoscope could not be advanced beyond this. However, retroflexion revealed no evidence of any appreciable hemorrhoids and careful inspection was carried out of the anorectal region which revealed only a minimal area intra anal hemorrhoid excoriation. He has had some symptoms of a minimal amount of watery looking blood on the toilet paper and perianal pruritus. Colonoscopy was done on 01/12/2025 which revealed significant pandiverticulosis with suboptimal prep. He was noted to have some indurated granulation type tissue in the left posterior lateral perianal location possibly consistent with fistula. I have been treating him with topical steroid ointment. I had a concern that this could be a perianal or perirectal fistula. I had him undergo MRI of the pelvis with fistula protocol which reveals evidence of a perianal fistula at the 6 o'clock position that is felt to be likely intersphincteric with a small associated abscess tract leading to the medial aspect of the gluteal fold. Operative findings:: He had an external opening in the left posterior lateral location tracking s eemingly intersphincteric to the posterior midline where there was appreciable internal scarring presumably from previous perirectal abscess which was drained internally. Operative note:: Consent was obtained patient is taken the operating room. He was given preoperative intravenous antibiotics. In the operating room he was placed in a supine position. General anesthesia was induced. He was repositioned in the lithotomy position. The area was prepped and draped in the standard surgical fashion. In the left posterior midline area there was some granulation tissue previously noted on clinical exam. This was probed with a blunt probe and fistula tract was identified. Largo anoscope was inserted. The tract traversed seemingly intersphincteric. However for quite some time it was difficult to identify internal opening. In the posterior midline there was some dimpling and scarring likely from previous perirectal transanal incision and drainage years ago. Scarring made identification of a fistula tract somewhat difficult. Ultimately with aid of cautery and some pressure the tract was identified. Probe was placed through the tract. A couple of Vesseloops were then placed through the tract extracting the probe. The Vesseloops were secured to 1 another with 0 Surgilon ties. Vesseloops were then cut creating the seton to allow for drainage and ultimate closure of the tract. Local anesthetic was infiltrated and a Gelfoam was soaked in topical hemostatic and rolled and inserted into the anal canal. Dressing was applied. Condition: stable Disposition: PACU Complications:: None immediately apparent
--- NOTE | 2025-03-19 12:51 | EXP.ANES.I ---
[facility] Anesthesia Record Part I Anesthesia Record I Intake, IV Amount: 800 Hydration: Adequate Estimated blood loss (mL): 0 Urine output (mL): 0 Blood Products used (#): none Blood Pressure: 99/57 SaO2: 93 Pulse Rate: 84 Airway Patency: Patent Respiratory Rate: 16 Temperature: 97.5 F Patient is:: Oral/Nasal airway, Stable and Somnolent Stable to PACU at:: 12:48
--- NOTE | 2025-03-20 11:30 | EXP.ANES.II ---
[facility] Anesthesia Record Part II Anesthesia Record Part II Discharge Time: 13:42 Destination: Surgical Day Care (OP Surgery) PACU nurse assessment reviewed?: Yes Patient Condition:: Good Anesthesia Complications:: None Swallowing reflex intact?: Yes Airway Patency: Patent Cyanosis?: No Blood Pressure: 140/62 SaO2: 93 Respiratory Rate: 20 Pulse Rate: 87 Temperature: 97.6 F Mental Status: Alert & Oriented Pain level:: 0 Nausea and/or vomitting:: None Intake, IV Amount: 0 Hydration: Adequate
[2025-03-20 11:32] VITALS: BP 140/62; PULSE 87; RESP 20; TEMP 36.4; O2SAT 93
== END 2025-03-19 14:03 | disposition home or self-care (01) ==
PROVIDERS: PCP Family Medicine; Visit Provider Surgery
DX: K60.30 Anal fistula, unspecified (principal); L29.0 Pruritus ani; J45.40 Moderate persistent asthma, uncomplicated; M19.011 Primary osteoarthritis, right shoulder; N40.0 Benign prostatic hyperplasia without lower urinary tract symptoms; K21.9 Gastro-esophageal reflux disease without esophagitis; Z96.611 Presence of right artificial shoulder joint; Z86.0100 Personal history of colon polyps, unspecified; Z98.890 Other specified postprocedural states; Z87.19 Personal history of other diseases of the digestive system; Z87.891 Personal history of nicotine dependence; Z79.1 Long term (current) use of non-steroidal anti-inflammatories (NSAID); Z79.51 Long term (current) use of inhaled steroids; Z79.899 Other long term (current) drug therapy
CPT/HCPCS: 46020; J0295; J1100; J2003; J2004; J2405; J2704; J3010; J7120

== ENCOUNTER 2025-04-02 09:18 | Day surgery (SDC) | payer MEDICARE, OTHER, SELFPAY ==
[2025-03-30 10:37] VITALS: BMI 35.2
[2025-04-02] VITALS (10 sets, daily range): BP systolic 125–152; BP diastolic 70–95; PULSE 65–84; RESP 15–22; TEMP 36.7–37; O2SAT 92–96
--- NOTE | 2025-04-02 10:06 | EXP.ANES.CKL ---
[facility] Disclaimer: The information contained in this section may have been updated after the patient was seen, as this information can be updated by other users. Medical History History of colon polyps Oral mucosal lesion Lesion of lip Enlarged prostate Arthritis Bronchitis Sleep apnea Asthma History of gastroesophageal reflux (GERD) History of diverticulitis History of cataract History of anemia Pneumonia Asthmatic bronchitis Dyspnea on exertion Allergic rhinitis, unspecified Moderate persistent asthma Cough variant asthma Seasonal allergies History of smoking for 2-5 years Surgical History History of anal fistulotomy History of right shoulder replacement History of cataract surgery History of surgery H/O umbilical hernia repair History of colonoscopy History of tonsillectomy Family History Sister Breast cancer Other Cancer Social History Smoking Status: Former smoker alcohol intake: never counseling provided: none substance use type: denies use current occupational status: retired Travel in the last 8 weeks?: None household members: spouse housing: house 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 current occupational exposures/hazards: No caffeine: Yes Have you lived/traveled outside US in past 30 days?: No Contact w/someone who lives/traveled outside US past 30 days?: No Exposure to someone with infectious disease in past 14 days?: No Do you have a fever (greater than 100.4 F or 38 C)?: No Have you tested positive for COVID-19?: No Exposed to someone with COVID-19 in past 14 days?: No Do you have a sore throat?: No Do you have a cough?: No Do you have any weakness?: No Do you have any diarrhea?: No Are you experiencing any unusual bleeding?: No Do you have any muscle aches/pain?: No Do you have any abdominal pain?: No Are you experiencing loss of taste or smell?: No [facility] Anesthesia Checklist Patient Identification Patient Identification: Arm Band Structural Data Admitted From: Home Planned Operative Procedure/s: Exam Under Anesthesia, Seton Exchange Consent for Planned Operative Procedure(s) Verified: Yes Verified Documents: Surgical Consent and History and Physical NPO Status Verified Time NPO: 00:00 Additional verifications Anesthesia Reactions: No Hx Blood Transfusions: No Blood Transfusion Reaction: No Airway Assessment Mallampati Score:: Class II C-Spine Mobility Assessed: Yes TMJ Mobility Assessed: Yes Dentition: Good Dentition Neurological Assessment Level of Consciousness: Awake, Alert and Appropriate Anesthesia Plan Anesthesia Risk discussed: Yes Anesthesia Plan: Verified ASA Class: II Anesthesia Type: General
[2025-04-02] MEDS: LIDOCAINE 1% W/EPI 1:100,000 20ML VIAL 20 ML (11:07)
--- NOTE | 2025-04-02 11:35 | EXP.OP.NOTE ---
Date of procedure: 04/02/25 Pre-op Diagnosis:: Perianal fistula with seton Post-op Diagnosis:: Same Procedure performed:: Exam under anesthesia, biopsy of fistula, seton exchange Surgeon:: Kane Martin MD SERVICE ENGINE REPAIRER:: Deven Gould Anesthesia: LMA Estimated blood loss (mL): 1 Clinical Note:: Patient underwent exam under anesthesia with seton placement on 03/19/2025 for and intersphincteric perianal fistula with tiny abscess. 2 Vesseloops were placed as drainage seton. He presented to the office 1 week later. He was doing well. He did have some soreness for a few days. Given the rather large seton and the prominence of tissue at the internal and external opening plan was made for exam under anesthesia with possible biopsy of the tissue and seton exchange for smaller cutting type seton. Operative findings:: There was some granulation tissue at the external opening. Internal opening appeared without mass. Operative note:: Consent was obtained and patient was taken the operating room. He was positioned in supine position. Anesthesia was induced via LMA. He was repositioned in the lithotomy position. The area was prepped and draped in the standard surgical fashion. Inspection was carried out. There was some inflamed granulation like tissue at the external opening. No evidence of any masslike tissue at the internal opening as was previous concern. The sutures placed on the 2 Vesseloops were removed sharply. While the Vesseloops were removed from the fistula. Attempt was made to secure another new vessel loop to the previous vessel loop but the originally placed vessel loop became dislodged from the fistula. Therefore blunt probe was inserted through the tract. A single [place] vessel loop was passed through the fistula tract. It was secured to itself with several 0 silk ties creating a cutting as well as draining type seton. The inflamed appearing granulation tissue at the external opening was biopsied with tenotomy scissors with tiny tissue specimen. There was some minimal oozing initially from the external opening. Pressure was held for good hemostasis. Local anesthesia was infiltrated. Seton was cut to the appropriate length. Dressing was applied. Condition: stable Disposition: PACU Complications:: None immediately apparent.
--- NOTE | 2025-04-02 11:48 | EXP.ANES.I ---
[facility] Anesthesia Record Part I Anesthesia Record I Intake, IV Amount: 550 Hydration: Adequate Estimated blood loss (mL): 1 Urine output (mL): 0 Blood Products used (#): none Blood Pressure: 130/70 SaO2: 94 Pulse Rate: 79 Airway Patency: Patent Respiratory Rate: 22 Temperature: 98.0 F Patient is:: Drowsy and Stable Stable to PACU at:: 11:40
--- NOTE | 2025-04-02 14:30 | P.PNANES_ITS ---
[facility] Anesthesia Record Part II Anesthesia Record Part II Discharge Time: 12:41 Destination: Surgical Day Care (OP Surgery) PACU nurse assessment reviewed?: Yes Patient Condition:: Good Anesthesia Complications:: None Swallowing reflex intact?: Yes Airway Patency: Patent Cyanosis?: No Blood Pressure: 152/85 SaO2: 96 Respiratory Rate: 20 Pulse Rate: 84 Temperature: 98.4 F Mental Status: Alert & Oriented Pain level:: 0 Nausea and/or vomitting:: None Intake, IV Amount: 0 Hydration: Adequate
== END 2025-04-02 12:45 | disposition home or self-care (01) ==
PROVIDERS: PCP Family Medicine; Visit Provider Surgery
DX: K60.30 Anal fistula, unspecified (principal); N40.0 Benign prostatic hyperplasia without lower urinary tract symptoms; K21.9 Gastro-esophageal reflux disease without esophagitis; Z98.890 Other specified postprocedural states; Z96.611 Presence of right artificial shoulder joint; Z87.891 Personal history of nicotine dependence; Z79.899 Other long term (current) drug therapy; Z79.82 Long term (current) use of aspirin
CPT/HCPCS: 46280; 88304; J1100; J2004; J2250; J2405; J2704; J3010